=== PATIENT | female | born 1945 | race Caucasian/White ===

== ENCOUNTER 2018-09-01 21:04 | Inpatient (IN) | payer MEDICARE, MEDICAID ==
--- NOTE | 2018-09-01 21:13 | ED PDOC ---
Arrival/HPI - General Time Seen by Provider: 09/01/18 21:05 Historian: Patient, Family, EMS - History of Present Illness Narrative History of Present Illness (Text): 09/01/18 21:12 Joanne Iglesias is a 73 year old female, whose past medical history includes lung cancer (currently undergoing chemotherapy) and hypertension, who presents to the emergency department brought in by EMS accompanied by relative for respiratory distress. As per son, patient has been experiencing shortness of breath today, progressively worsening tonight. EMS was notified and patient was placed on BiPAP en route to the ED. Limited HPI and ROS secondary to patient's respiratory distress. Time/Duration: Prior to Arrival Symptom Onset: Gradual Symptom Course: Worsening Activities at Onset: Light Context: Home Past Medical History - Provider Review Nursing Documentation Reviewed: Yes Family/Social History - Physician Review Nursing Documentation Reviewed: Yes Family/Social History: Unknown Family HX Allergies/Home Meds Allergies/Adverse Reactions: Allergies No Known Allergies Allergy (Verified 09/01/18 21:14) Home Medications: Home Meds Medication Instructions Recorded Confirmed Acetaminophen/Oxycodone Hydr 1 tab PO Q4 PRN 09/01/18 09/01/18 [Percocet 10/325 mg Tab] Folic Acid 1 tab PO DAILY 09/01/18 09/01/18 Megestrol [Megace] 1 tab PO DAILY 09/01/18 09/01/18 Ondansetron HCl [Zofran] 1 tab PO TID PRN 09/01/18 09/01/18 RX: Gabapentin [Neurontin] 1 tab PO BID 09/01/18 09/01/18 Review of Systems - Review of Systems Systems not reviewed;Unavailable: Respiratory Distress Respiratory: SOB Physical Exam Vital Signs Reviewed: Yes Temperature: Afebrile Blood Pressure: Normal Pulse: Tachycardic Respiratory Rate: Tachypneic Appearance: Positive for: Non-Toxic Mental Status: Positive for: Alert and Oriented X 3 - Systems Exam Head: Present: Atraumatic, Normocephalic Pupils: Present: PERRL Extroacular Muscles: Present: EOMI Conjunctiva: Present: Normal Mouth: Present: Moist Mucous Membranes Neck: Present: Normal Range of Motion Respiratory/Chest: Present: Decreased Breath Sounds, Rhonchi (Rhonchi bilaterally), Tachypneic Cardiovascular: Present: Normal S1, S2, Tachycardic. No: Murmurs Abdomen: No: Tenderness, Distention, Peritoneal Signs Upper Extremity: Present: Normal Inspection. No: Cyanosis, Edema Lower Extremity: Present: Normal Inspection. No: Edema Neurological: Present: GCS=15, CN II-XII Intact Skin: Present: Warm, Dry, Normal Color. No: Rashes Psychiatric: Present: Alert, Oriented x 3 Medical Decision Making ED Course and Treatment: 09/01/18 21:12 Impression: 73 year old female brought in by EMS for respiratory distress. Plan: -- EKG -- CXR -- Labs, cardiac enzymes, BNP -- IV fluids -- Duoneb -- Solu-medrol -- Reassess and disposition Progress Notes: Reviewed EKG, sinus tachycardia at 141 bpm. LAD. Inferior infarct. Anteroseptal infarct. ST/T changes laterally. 09/01/18 22:07 CXR reviewed, shows increased pulmonary vascular markings, consistent with CHF. 09/01/18 22:22 Labs reviewed, WBC: 24.6, troponin:2.69, BNP:9330, lactate: 6.2. Code Sepsis called. Hepairin, Maxipime, Nitroglycerin, and Vancomycin ordered. 09/01/18 22:[address] Jennifer Childress, transformer coil winder, who is aware and agrees with plan. Pt will be admitted to the ICU for sepsis, pneumonia, COPD, NSTEMI, cor pulmonale under the hospitalist service. residential advisor notified. - Critical Care Critical Care Minutes: 45 minutes - Lab Interpretations I have reviewed the lab results: Yes - RAD Interpretation Manager Civil: ED Physician - EKG Interpretation Interpreted by ED Physician: Yes Type: 12 lead EKG - Scribe Statement The provider has reviewed the documentation as recorded by the Ryneiblaron Rios Provider Scribe Attestation: All medical record entries made by the Scribe were at my direction and personally dictated by me. I have reviewed the chart and agree that the record accurately reflects my personal performance of the history, physical exam, m edical decision making, and the department course for this patient. I have also personally directed, reviewed, and agree with the discharge instructions and disposition. Disposition/Present on Arrival - Present on Arrival Any Indicators Present on Arrival: No History of DVT/PE: No History of Uncontrolled Diabetes: No Urinary Catheter: No History of Decub. Ulcer: No History Surgical Site Infection Following: None - Disposition Have Diagnosis and Disposition been Completed?: Yes Diagnosis: COPD (chronic obstructive pulmonary disease), Sepsis, NSTEMI (non-ST elevated myocardial infarction), Pneumonia, Pulmonary cancer, CHF (congestive heart failure) Disposition: HOSPITALIZED Disposition Time: 22:25 Condition: GUARDED
[2018-09-01] MEDS ORDERED: Albuterol-Ipratrop 3 mg / 0.5 (3 ml) UD ONE (21:14)
[2018-09-01 21:20] LABS: HEMOGLOBIN 9.5 g/dL (12.0-16.0); MEAN CELL VOLUME 94.8 fl (80.0-105.0); MEAN CORPUSCULAR HEMOGLOBIN 29.2 pg (25.0-35.0); MEAN CORPUSCULAR HGB CONC 30.8 g/dl (31.0-37.0); MEAN PLATELET VOLUME 9.5 fl (7.0-11.0); RBC 3.25 10^6/uL (3.5-6.1); RED CELL DISTRIBUTION WIDTH 15.6 % (11.5-14.5); WHITE BLOOD COUNT 24.6 10^3/uL (4.5-11.0)
[2018-09-01] MEDS ORDERED: Albuterol-Ipratrop 3 mg / 0.5 (3 ml) UD IH STA ×2 (21:20→21:29)
[2018-09-01] MEDS ORDERED: Sodium Chloride 0.9% 500 ML IV STA (21:27)
[2018-09-01 21:31] LABS: INR 1.19; PARTIAL THROMBOPLASTIN TIME 31.1 Seconds (25.1-36.5); PROTHROMBIN TIME 13.6 SECONDS (9.4-12.5)
[2018-09-01 21:35] LABS: CALCIUM 9.9 mg/dL (8.4-10.5)
[2018-09-01] MEDS ORDERED: Morphine 2 mg/ml ISec IVP STA (21:37)
[2018-09-01] MEDS ORDERED: Morphine 2 mg/ml ISec ONE (21:40)
[2018-09-01 22:00] LABS: ARTERIAL BLOOD GAS HCO3 16.1 mmol/L (21-28); ARTERIAL BLOOD GAS HEMOGLOBIN 9.1 g/dL (11.7-17.4); ARTERIAL BLOOD GAS O2 CAPACITY 12.3 mL/dl (16-24); ARTERIAL BLOOD GAS O2 CONTENT 11.2 ML/dl (15-23); ARTERIAL BLOOD GAS O2 SAT 90.9 % (95-98); ARTERIAL BLOOD GAS PCO2 32 mm/Hg (35-45); ARTERIAL BLOOD GAS PH 7.31 (7.35-7.45); ARTERIAL BLOOD GAS TCO2 17.1 mmol.L (22-28)
[2018-09-01 22:08] LABS: TROPONIN I 2.69 ng/mL
[2018-09-01] MEDS ORDERED: Nitroglycerin 50mg in D5W 50 MG/250 ML BOTTLE IV PRN (22:09)
[2018-09-01] MEDS ORDERED: Azithromycin 500MG/NS 250ml 500 MG/250 ML BAG IV STA (22:10)
[2018-09-01] MEDS ORDERED: cefTRIAXone 1 gm 1 GM/100 ML BAG IV STA (22:10)
[2018-09-01 22:18] LABS: VENOUS BLOOD GAS BASE EXCESS -12.6 mmol/L (0.0-2.0); VENOUS BLOOD GAS PO2 66 mm/Hg (30-55); VENOUS BLOOD PH 7.15 (7.32-7.43)
[2018-09-01] MEDS ORDERED: Vancomycin 1gm in NS 250ml 1 GM/250 ML BAG IVPB STA (22:19)
[2018-09-01] MEDS ORDERED: Cefepime IV 2 gm in NS 2 GM/100 ML BAG IVPB STA (22:19)
[2018-09-01 22:29] VITALS: BMI 23.6
[2018-09-01] MEDS ORDERED: Heparin25000 units/250ml 1/2NS 25,000 UNITS/250 ML BAG IV SCH (22:30)
[2018-09-01] MEDS ORDERED: Heparin 25,000units in 1/2NS 250 ML BAG IV SCH (22:45)
[2018-09-01] MEDS ORDERED: Aspirin 325 mg EC Tablets PO STA (23:40)
--- NOTE | 2018-09-02 00:01 | CP.PCM.HP ---
History of Present Illness - History of Present Illness History of Present Illness: Misti Lima, PGY-1, Internal Medicine History and Physical for Dr. Childress 73 year old female with past medical history of unspecified lung cancer with unspecified chemotherapy that she has been receiving since being diagnosed in March 2018, hypertension, COPD, cardiac myxoma, and asthma presents with shortness of breath and chest pain. As per daughter, patient was complaining of chest pain starting at 13:00 on 09/01, but mentioned that the pain was light and pressure like. No exacerbating or remitting factors were present. Chest pain was constant and increased over time, which radiated to the left arm, left leg, and back. Patient admitted to diaphoresis recently but denied nausea and jaw pain. Patient took a nap at 16:30 and woke up at 18:00 with shortness of breath and wheezing. Patient's son called EMS, who started patient on BiPap en route to the hospital. Patient denied cough, sputum production, fever, abdominal pain, dysuria, hematuria, numbness/tingling. Patient has had an episode of this severe shortness of breath in the past and was [place] [facility]. Daughter was unsure of what the diagnosis and treatment were at the time. 12-point ROS was unremarkable except for what was mentioned above. Code status was explained in detail to family at bedside who stated that they want patient to be full code at this time. PMH: as stated above. PSH: chemotherapy port in March 2018 FMHx: denies SHx: 2 ppd for 50 years, stopped in March 2018; denies drinking or recreational drug use Allergies: NKDA PMD: Dr. Gomes Heme/Onc: Dr. Matson Pharmacy: [facility] Present on Admission - Present on Admission Any Indicators Present on Admission: No Review of Systems - Constitutional Constitutional: absent: Anorexia, Chills, Fever - EENT Eyes: absent: Blurred Vision Ears: absent: Decreased Hearing - Cardiovascular Cardiovascular: Chest Pain, Chest Pain at Rest, Diaphoresis, Dyspnea, Edema, Pain Radiating to Arm/Neck/Jaw (left arm), Leg Edema. absent: Lightheadedness - Respiratory Respiratory: Dyspnea, Wheezing. absent: Cough, Hemoptysis, Chest Congestion - Gastrointestinal Gastrointestinal: absent: Abdominal Pain, Constipation, Diarrhea, Nausea, Vomiting - Genitourinary Genitourinary: absent: Dysuria, Hematuria - Musculoskeletal Musculoskeletal: absent: Abnormal Gait, Atrophy, Back Pain - Neurological Neurological: absent: Confusion, Weakness Past Patient History - Infectious Disease Hx of Infectious Diseases: None - Past Social History Smoking Status: Former Smoker - CARDIAC Other/Comment: mass in heart - PULMONARY Hx Lung Cancer: Yes - PSYCHIATRIC Hx Substance Use: No - SURGICAL HISTORY Other/Comment: Port a cath right CW - ANESTHESIA Hx Anesthesia: Yes Meds Allergies/Adverse Reactions: Allergies Allergy/AdvReac Type Severity Reaction Status Date / Time No Known Allergies Allergy Verified 09/01/18 21:14 Physical Exam - Constitutional Appears: Well, Non-toxic, No Acute Distress - Head Exam Head Exam: ATRAUMATIC, NORMAL INSPECTION, NORMOCEPHALIC - Eye Exam Eye Exam: EOMI, PERRL - ENT Exam ENT Exam: Mucous Membranes Moist - Respiratory Exam Respiratory Exam: Rales, Wheezes - Cardiovascular Exam Cardiovascular Exam: Tachycardia, REGULAR RHYTHM - GI/Abdominal Exam GI & Abdominal Exam: Normal Bowel Sounds, Soft. absent: Tenderness - Extremities Exam Extremities exam: Positive for: full ROM - Neurological Exam Neurological exam: Alert, CN II-XII Intact, Oriented x3 - Skin Skin Exam: Dry, Intact, Pallor Results - Vital Signs Recent Vital Signs: Last Vital Signs Temp 98.2 F 09/01/18 21:23 Pulse 136 H 09/01/18 22:31 Resp 23 09/01/18 21:23 BP 102/79 09/01/18 21:23 Pulse Ox 92 L 09/01/18 21:23 - Labs Result Diagrams: 09/01/18 21:00 09/01/18 21:00 Labs: Laboratory Results - last 24 hr 09/01/18 09/01/18 09/01/18 21:00 21:00 21:00 WBC 24.6 H RBC 3.25 L Hgb 9.5 L Hct 30.8 L MCV 94.8 MCH 29.2 MCHC 30.8 L RDW 15.6 H Plt Count 457 H MPV 9.5 PT 13.6 H INR 1.19 APTT 31.1 pCO2 pO2 HCO3 ABG pH ABG Total CO2 ABG O2 Saturation ABG O2 Content ABG Base Excess ABG Hemoglobin ABG Carboxyhemoglobin POC ABG HHb (Measured) ABG Methemoglobin ABG O2 Capacity VBG pH VBG pCO2 VBG HCO3 VBG Total CO2 VBG O2 Sat (Calc) VBG Base Excess VBG Potassium Hgb O2 Saturation Glucose Lactate FiO2 Sodium 135 Potassium 4.9 Chloride 105 Carbon Dioxide 17 L Anion Gap 18 BUN 43 H Creatinine 1.6 H Est GFR ( Amer) 38 Est GFR (Non-Af Amer) 31 Random Glucose 267 H Calcium 9.9 Total Bilirubin 0.4 AST 46 H ALT 19 Alkaline Phosphatase 62 Lactate Dehydrogenase 590 Total Creatine Kinase 145 Troponin I 2.69 H* NT-Pro-B Natriuret Pep 9330 H Total Protein 7.8 Albumin 4.0 Globulin 3.8 Albumin/Globulin Ratio 1.0 L Venous Blood Potassium 09/01/18 09/01/18 21:50 22:15 WBC RBC Hgb Hct MCV MCH MCHC RDW Plt Count MPV PT INR APTT pCO2 32 L pO2 54.0 L 66 H HCO3 16.1 L ABG pH 7.31 L ABG Total CO2 17.1 L ABG O2 Saturation 90.9 L ABG O2 Content 11.2 L ABG Base Excess -9.2 L ABG Hemoglobin 9.1 L ABG Carboxyhemoglobin 3.1 H POC ABG HHb (Measured) 8.8 H ABG Methemoglobin 0.6 ABG O2 Capacity 12.3 L VBG pH 7.15 L* VBG pCO2 46.0 VBG HCO3 16.0 L VBG Total CO2 17.4 L VBG O2 Sat (Calc) 92.2 H VBG Base Excess -12.6 L VBG Potassium 5.0 Hgb O2 Saturation 87.5 L Glucose 274 H Lactate 6.2 H* FiO2 40.0 21.0 Sodium 135.0 Potassium Chloride 102.0 Carbon Dioxide Anion Gap BUN Creatinine Est GFR ( Amer) Est GFR (Non-Af Amer) Random Glucose Calcium Total Bilirubin AST ALT Alkaline Phosphatase Lactate Dehydrogenase Total Creatine Kinase Troponin I NT-Pro-B Natriuret Pep Total Protein Albumin Globulin Albumin/Globulin Ratio Venous Blood Potassium 5.0 Assessment & Plan - Assessment and Plan (Free Text) Assessment: 73 year old female with past medical history of unspecified lung cancer with unspecified chemotherapy that she has been receiving since being diagnosed in March 2018, hypertension, COPD, cardiac myxoma, and asthma presents with shortness of breath and chest pain. Plan: Shortness of Breath and Sepsis 2/2 to Obstructive Pneumonia vs. COPD exacerbation vs. Pulmonary Embolism -Chest X ray showed evidence of pulmonary congestion as read by me. Follow up official read. -Chest CT: follow up results -Continue BiPap with IPAP 12, EPAP 6, RR 12, O2% of 60% -ABG: pH: 7.31, pO2: 52, pCO2: 32, Lactate: 6.2. Follow up pH was 7.15 -Suspecting CAP vs. HCAP since patient is immunocompromised on chemotherapy. B lood culture and urine culture ordered. -Follow up repeat ABG and ABG in the AM -Trend lactate level. Lactate is 6.2 -Vancomycin and zosyn for suspected pneumonia. -Xopenex PRN for shortness of breath. Given over duonebs due to patient's tachycardia -Methylpredisone 125 given in ED. Patient started on solucortef Q8 for stress dose steroids -Patient is full code and prognosis is guarded. Code status was discussed with daughter and granddaughter at bedside extensively, but status should be reconfi rmed with son once son is available. -Dr. Matson consulted for recommendations. Follow recommendations. NSTEMI -EKG: sinus tachycardia with ST depressions in V5 and V6 with heart rate of 141 -Troponin: 2.69. Follow up repeat troponin Q8 -BNP: 9330 -Patient has reported history of cardiac myxoma -Last echo in 2014 showed EF of 51.4% with mild TR. Repeat echocardiogram orde red to evaluate for CHF -Morphine, Bipap, Nitroglycerin at 5 mcg/min, aspirin, plavix, metoprolol ta rtrate, atorvastatin, give loading dose of heparin and heparin drip at 12U/kg/hr -Consider ROMY inhibitor -Measure daily weight -Strict I and Os History of hypertension -Patient currently not hypertensive -Due to NSTEMI, patient started on metoprolol and is currently on nitroglycerin drip ISAEL -Patient currently has ISAEL at 1.6 from baseline of 1.0 -Likely due to dehydration -NS at 40cc/hr started. Lower dose started due to rales on examination from possible CHF exacerbation. She should not be fluid overloaded -Patient currently has nonaniongap metabolic acidosis with appropriate respiratory compensation. Continue to follow up CMP in the AM GI prophylaxis: protonix 40 mg daily DVT prophylaxis: heparin drip currently Patient plan discussed with Dr. Childress. - Date & Time Date: 09/02/18 Time: 00:08
[2018-09-02] MEDS ORDERED: Sodium Chloride 0.9% 1,000 ML IV STA (00:41)
[2018-09-02] MEDS: Metoprolol 1 mg/ml Inj IVP SCH ×2 (01:02→09:31)
[2018-09-02 01:18] LABS: ARTERIAL BLOOD GAS HCO3 16.6 mmol/L (21-28); ARTERIAL BLOOD GAS O2 SAT 92.9 % (95-98); ARTERIAL BLOOD GAS PCO2 37 mm/Hg (35-45); ARTERIAL BLOOD GAS PH 7.26 (7.35-7.45); ARTERIAL BLOOD GAS TCO2 17.7 mmol.L (22-28)
[2018-09-02] MEDS: Morphine 2 mg/ml ISec IVP PRN ×2 (01:44→17:42)
[2018-09-02] MEDS ORDERED: Etomidate 20 mg/10ml Inj IV ONE (02:16)
[2018-09-02] MEDS ORDERED: Propofol 10 mg/ml 1,000 MG/100 ML VIAL IV PRN (02:46)
[2018-09-02 03:18] LABS: ARTERIAL BLOOD GAS HCO3 14.9 mmol/L (21-28); ARTERIAL BLOOD GAS HEMOGLOBIN 9.8 g/dL (11.7-17.4); ARTERIAL BLOOD GAS O2 CAPACITY 13.6 mL/dl (16-24); ARTERIAL BLOOD GAS O2 SAT 95.9 % (95-98); ARTERIAL BLOOD GAS PCO2 47 mm/Hg (35-45); ARTERIAL BLOOD GAS TCO2 16.3 mmol.L (22-28)
[2018-09-02 03:20] LABS: ARTERIAL BLOOD GAS PH 7.11 (7.35-7.45)
--- NOTE | 2018-09-02 04:37 | PCM.PROC ---
Procedures Attestation:: I certify that I have explained the specified Operation(s) or Procedure(s), risks, benefits and reasonable alternatives to the Patient and/or other person responsible. The opportunity was given to ask questions and all questions answered - Central Line Placement Internal Jugular CVP Time Out Performed: Yes Pt. Placed on Pulse Ox Monitor: Yes Central Line Prep: Chlorhexidine-Alcohol Combination Ultrasound Used for Placement: Yes Central Line Lumen Inserted: triple Central Line Length: 20 cm Post Procedure: Sutured in Place, Good Blood Return, All Ports Aspirated, Flushed, Capped, Sterile Dressing Applied Secured by: Securement device Post procedure dressing: Chlorhexidine disc (Biopatch) Post Procedure X-Ray: Yes Patient Tolerated Procedure: Well Immediate Complications: None Additional Comments: Supervised and assisted by Dr. Rodríguez Portillo PGY3.
--- NOTE | 2018-09-02 04:39 | PCM.PROC ---
Procedures Attestation:: I certify that I have explained the specified Operation(s) or Procedure(s), risks, benefits and reasonable alternatives to the Patient and/or other person responsible. The opportunity was given to ask questions and all questions answered - Intubation Time Out Performed: Yes Sedative: Etomidate Laryngoscope: Estefany ET Tube Size: 7.5 ET Tube Secured at Depth: 15 ET Tube Placement Confirmation: Visualized Passing Through Cords, Confirmation w/Capnometry Patient Tolerated Procedure: Well Procedure Immediate Complications: None Additional comments: Supervised and assisted by Dr. Rodríguez Portillo PGY3
[2018-09-02] MEDS: Propofol 10 mg/ml 1,000 MG/100 ML VIAL IV PRN ×2 (05:22→13:04)
[2018-09-02 05:55] LABS: ARTERIAL BLOOD GAS HCO3 17.8 mmol/L (21-28); ARTERIAL BLOOD GAS HEMOGLOBIN 9.4 g/dL (11.7-17.4); ARTERIAL BLOOD GAS O2 CAPACITY 13.2 mL/dl (16-24); ARTERIAL BLOOD GAS O2 CONTENT 13.2 ML/dl (15-23); ARTERIAL BLOOD GAS O2 SAT 99.7 % (95-98); ARTERIAL BLOOD GAS PCO2 37 mm/Hg (35-45); ARTERIAL BLOOD GAS PH 7.29 (7.35-7.45); ARTERIAL BLOOD GAS TCO2 18.9 mmol.L (22-28)
[2018-09-02] MEDS ORDERED: Piperacillin/Tazobact 3.375 gm 100 ML IVPB SCH (06:00)
[2018-09-02 07:12] LABS: GRAN # 8.73 (1.4-6.5); GRAN % 87.8 % (50.0-68.0); HEMOGLOBIN 8.8 g/dL (12.0-16.0); LYMPH # 0.6 (1.2-3.4); LYMPH % 6.2 % (22.0-35.0); MEAN CELL VOLUME 94.1 fl (80.0-105.0); MEAN CORPUSCULAR HEMOGLOBIN 28.9 pg (25.0-35.0); MEAN CORPUSCULAR HGB CONC 30.7 g/dl (31.0-37.0); MEAN PLATELET VOLUME 9.6 fl (7.0-11.0); MONO # 0.6 (0.1-0.6); RBC 3.05 10^6/uL (3.5-6.1); RED CELL DISTRIBUTION WIDTH 15.6 % (11.5-14.5)
--- NOTE | 2018-09-02 07:26 | CP.PCM.PN ---
<McnealRenettakevin L - Last Filed: 09/02/18 17:28> Subjective - Date & Time of Evaluation Date of Evaluation: 09/02/18 Time of Evaluation: 07:26 - Subjective Subjective: Resident Progress Note for Hospitalist Service Patient examined at bedside. Patient is intubated and sedated on propofol drip, unable to provide history. Patient's condition was discussed with son who was at bedside. Objective - Vital Signs/Intake and Output Vital Signs (last 24 hours): Temp Pulse Resp BP Pulse Ox 98.2 F 102 H 20 91/56 L 100 09/01/18 21:23 09/02/18 06:00 09/02/18 04:02 09/02/18 04:00 09/02/18 04:00 Intake and Output: 09/02/18 09/02/18 06:59 18:59 Intake Total 544 Output Total 150 Balance 394 - Medications Medications: Current Medications Hydrocortisone Sodium Succinate (Solu-Cortef) 100 mg IVP Q8 FLIP Last Admin: 09/02/18 05:07 Dose: Not Given Nitroglycerin/Dextrose (Nitroglycerin 50 Mg/250 Ml D5w) 50 mg in 250 mls @ 1.5 mls/hr IV .Q24H PRN; Protocol PRN Reason: Titrate per protocol Last Admin: 09/01/18 22:31 Dose: mls/hr Heparin Sodium/Sodium Chloride (Heparin 74392 Units/250ml 1/2 Normal Saline) 25,000 units in 250 mls @ 6.603 mls/hr IV .Q24H FLIP; Protocol Last Admin: 09/01/18 23:22 Dose: 6.603 mls/hr Vancomycin HCl (Vancomycin 1gm) 1 gm in 250 mls @ 167 mls/hr IVPB DAILY FLIP; Protocol Piperacillin Sod/Tazobactam Sod (Zosyn 3.375 In Ns 100ml) 100 mls @ 25 mls/hr IVPB Q8 FLIP; Protocol Stop: 09/02/18 17:59 Last Admin: 09/02/18 05:22 Dose: 25 mls/hr Sodium Chloride (Sodium Chloride 0.9%) 1,000 mls @ 40 mls/hr IV .Q24H STA Stop: 09/03/18 00:40 Last Admin: 09/02/18 01:03 Dose: 40 mls/hr Propofol (Diprivan) 1,000 mg in 100 mls @ 1.445 mls/hr IV .Q24H PRN; Protocol PRN Reason: TITRATE PER MD ORDER Last Titration: 09/02/18 05:24 Dose: 35 mcg/kg/min, 10.116 mls/hr Levalbuterol HCl (Xopenex) 0.63 mg IH [id number] PRN PRN Reason: Shortness of Breath Metoprolol Tartrate (Lopressor) 5 mg IVP DAILY [facility] Last Admin: 09/02/18 01:02 Dose: 5 mg Morphine Sulfate (Morphine) 2 mg IVP Q4H PRN PRN Reason: Pain, severe (8-10) Last Admin: 09/02/18 01:44 Dose: 2 mg Ondansetron HCl (Zofran Inj) 4 mg IVP Q6 PRN PRN Reason: Nausea/Vomiting Pantoprazole Sodium (Protonix Inj) 40 mg IVP DAILY [facility] - Labs Labs: 09/02/18 06:40 09/01/18 21:00 PT 13.6 SECONDS (9.4-12.5) H 09/01/18 21:00 INR 1.19 09/01/18 21:00 APTT 46.8 Seconds (25.1-36.5) H 09/02/18 06:40 - Constitutional Appears: Non-toxic, No Acute Distress - Head Exam Head Exam: ATRAUMATIC, NORMOCEPHALIC - Eye Exam Eye Exam: Normal appearance, PERRL - ENT Exam ENT Exam: Mucous Membranes Moist Additional comments: ett in place - Respiratory Exam Respiratory Exam: Rales, NORMAL BREATHING PATTERN. absent: Accessory Muscle Use, Respiratory Distress - Cardiovascular Exam Cardiovascular Exam: Tachycardia, +S1, +S2. absent: Murmur - GI/Abdominal Exam GI & Abdominal Exam: Soft, Normal Bowel Sounds. absent: Distended, Firm, Rigid - Extremities Exam Extremities Exam: Normal Capillary Refill, Pedal Edema Additional comments: +2 pitting edema - Skin Skin Exam: Dry, Intact, Normal Color Assessment and Plan - Assessment and Plan (Free Text) Assessment: 73 year old female with past medical history of unspecified lung cancer with unspecified chemotherapy that she has been receiving since being diagnosed in March 2018, hypertension, COPD, cardiac myxoma, and asthma presents with shortness of breath and chest pain. Plan: Respiratory failure - s/p intubation - COPD exacerbation vs. PE vs. CHF exacerbation - Chest X ray shows severe vascular congestion - BNP 9330 - Echo in 2015 showed EF of 51.4% with mild TR, followup repeat ECHO - Chest CT unable to be done as patient is unstable - Xopenex PRN - Heme/onc consulted. Recs appreciated. Septic shock - on vasopressin, levophed, dobutamine drip - Solu-cortef 50 mg IV Q6 - lactate trending down - Doxycycline and Merrem after loading vancomycin dose - followup cultures - ID consulted. Appreciate recs. NSTEMI - EKG: sinus tachycardia with ST depressions in V5 and V6 with heart rate of 141 - troponins 114 - heparin drip - nitroglycerin drip, metoprolol, acei held due to septic shock - Cardiology consulted. Recommend conservative management. ARF - likely pre-renal due to septic shock GI prophylaxis: protonix 40 mg IV daily DVT prophylaxis: heparin drip Case discussed with Dr. Derik Mcneal PGY-1 <Bear More - Last Filed: 09/02/18 17:38> Objective - Vital Signs/Intake and Output Vital Signs (last 24 hours): Temp Pulse Resp BP Pulse Ox 97.4 F L 107 H 20 114/57 L 100 09/02/18 00:20 09/02/18 16:45 09/02/18 04:02 09/02/18 16:45 09/02/18 16:45 Intake and Output: 09/02/18 09/02/18 06:59 18:59 Intake Total 563 81 Output Total 150 Balance 413 81 - Medications Medications: Current Medications Hydrocortisone Sodium Succinate (Solu-Cortef) 50 mg IVP Q6 [facility] Last Admin: 09/02/18 15:06 Dose: 50 mg Nitroglycerin/Dextrose (Nitroglycerin 50 Mg/250 Ml D5w) 50 mg in 250 mls @ 1.5 mls/hr IV .Q24H PRN; Protocol PRN Reason: Titrate per protocol Last Admin: 09/01/18 22:31 Dose: mls/hr Propofol (Diprivan) 1,000 mg in 100 mls @ 1.445 mls/hr IV .Q24H PRN; Protocol PRN Reason: TITRATE PER MD ORDER Last Admin: 09/02/18 13:04 Dose: 20 mcg/kg/min, 5.781 mls/hr Heparin Sodium/Sodium Chloride (Heparin 94457 Units/250ml 1/2 Normal Saline) 25,000 units in 250 mls @ 5.77 mls/hr IV .Q24H FLIP; Protocol Last Titration: 09/02/18 15:33 Dose: 16 units/kg/hr, 7.693 mls/hr NOREPINEPHRINE BIT/0.9 % NACL (Levophed 4 Mg/ 250 Ml Ns Premixed) 4 mg in 250 mls @ 15 mls/hr IV .[id number] PRN; Protocol PRN Reason: TITRATE PER MD ORDER Last Admin: 09/02/18 09:53 Dose: 4 mcg/min, 15 mls/hr Vasopressin 20 units/ Sodium (Chloride) 101 mls @ 9.09 mls/hr IV .Q11H7M [facility]; Protocol Last Admin: 09/02/18 10:07 Dose: 9.09 mls/hr Doxycycline Hyclate 100 mg/ (Sodium Chloride) 100 mls @ 100 mls/hr IVPB Q12 S ; Protocol Last Admin: 09/02/18 11:28 Dose: 100 mls/hr Dobutamine HCl/Dextrose (Dobutamine/Dextrose 5% 500mg/250ml) 500 mg in 250 mls @ 3.606 mls/hr IV .Q24H PRN; Protocol PRN Reason: TITRATE PER PROTOCOL Last Admin: 09/02/18 15:52 Dose: 2.5 mcg/kg/min, 3.606 mls/hr Meropenem/Sodium Chloride (Merrem Iv 500 Mg/Ns 50 Ml) 500 mg in 50 mls @ 100 mls/hr IVPB Q12 FLIP; Protocol Stop: 09/03/18 10:29 Levalbuterol HCl (Xopenex) 0.63 mg IH [id number] PRN PRN Reason: Shortness of Breath Morphine Sulfate (Morphine) 2 mg IVP Q4H PRN PRN Reason: Pain, severe (8-10) Last Admin: 09/02/18 01:44 Dose: 2 mg Ondansetron HCl (Zofran Inj) 4 mg IVP Q6 PRN PRN Reason: Nausea/Vomiting Oseltamivir Phosphate (Tamiflu Cap) 30 mg PO BID [facility]; Protocol Last Admin: 09/02/18 15:08 Dose: 30 mg Pantoprazole Sodium (Protonix Inj) 40 mg IVP DAILY [facility] Last Admin: 09/02/18 09:29 Dose: 40 mg - Labs Labs: 09/02/18 06:40 09/02/18 16:32 PT 13.6 SECONDS (9.4-12.5) H 09/01/18 21:00 INR 1.19 09/01/18 21:00 APTT 36.9 Seconds (25.1-36.5) H 09/02/18 14:10 Attending/Attestation - Attestation I have personally seen and examined this patient.: Yes I have fully participated in the care of the patient.: Yes I have reviewed all pertinent clinical information, including history, physical exam and plan: Yes
[2018-09-02 07:34] LABS: ALBUMIN 3.5 g/dL (3.0-4.8); CALCIUM 9.2 mg/dL (8.4-10.5)
[2018-09-02] MEDS: Heparin25000 units/250ml 1/2NS 25,000 UNITS/250 ML BAG IV SCH (08:00)
[2018-09-02 08:09] LABS: ARTERIAL BLOOD GAS HCO3 17.3 mmol/L (21-28); ARTERIAL BLOOD GAS HEMOGLOBIN 8.7 g/dL (11.7-17.4); ARTERIAL BLOOD GAS O2 CAPACITY 12.5 mL/dl (16-24); ARTERIAL BLOOD GAS O2 CONTENT 12.5 ML/dl (15-23); ARTERIAL BLOOD GAS O2 SAT 100.2 % (95-98); ARTERIAL BLOOD GAS PCO2 32 mm/Hg (35-45); ARTERIAL BLOOD GAS PH 7.34 (7.35-7.45); ARTERIAL BLOOD GAS TCO2 18.3 mmol.L (22-28)
--- NOTE | 2018-09-02 08:21 | CP.PCM.CON ---
<BretWilver - Last Filed: 09/02/18 09:45> History of Present Illness - History of Present Illness History of Present Illness: Wilver Queen Internal Medicine Resident- Consult Note on Behalf of Critical Care Team Subjective: Patient is a 73 year old female with a past medical history of lung cancer, hypertension, COPD, cardiac myxoma, and asthma who was admitted for evaluation and treatment of shortness of breath and chest pain. Patient was found to be experiencing an NSTEMI, CHF exacerbation, and ISAEL. Patient developed hypoxemic respiratory failure and was intubated for airway protection/improved oxygenation. Patient was transferred to the ICU for further management. Patient seen and examined at bedside. Further subjective data cannot be ascertained at this time. 12 point ROS cannot except as indicated in the HPI Past medical history: unspecified lung cancer with unspecified chemotherapy that she has been receiving since being diagnosed in March 2018, hypertension, COPD, cardiac myxoma, and asthma Past surgical history: chemotherapy port in March 2018 Family History: denies Social History: as per records, 2 ppd for 50 years, stopped in March 2018; denies drinking or recreational drug use Allergies: NKDA PMD: Dr. Gomes Heme/Onc: Dr. Matson Pharmacy: [facility] Physical Examination: - Constitutional Appears: no acute distress - Head Exam Head Exam: ATRAUMATIC, NORMAL INSPECTION, NORMOCEPHALIC - Eye Exam Eye Exam: PERRL - ENT Exam ENT Exam: Mucous Membranes Moist - Respiratory Exam Respiratory Exam: Rales, Wheezes - Cardiovascular Exam Cardiovascular Exam: Tachycardia, REGULAR RHYTHM - GI/Abdominal Exam GI & Abdominal Exam: Normal Bowel Sounds, Soft. absent: Tenderness - Extremities Exam Extremities exam: Positive for: full ROM - Neurological Exam Neurological exam: sedated - Skin Skin Exam: Dry, Intact Assessment and Plan: Patient is a 73 year old female with past medical history of lung cancer, hypertension, COPD, cardiac myxoma, and asthma who was admitted for evaluation and treatment of shortness of breath and chest pain. Developed hypoxemic respiratory failure. Intubated for airway protection. Patient was transferred to the ICU for further management. Neurology - sedated on propofol - sedation vacation daily Pulm: Hypoxemic Respiratory Failure - 2/2 to Obstructive Pneumonia vs. COPD exacerbation vs. Pulmonary Embolism - 09/01/2018 Chest X ray vascular and interstitial congestion - 09/02/2018- Chest CT without contrast cancelled as patient is too unstable at this time - continue vent setting PRVC TV: 350, RR: 15, O2: 80%, PEEP: 10- decrease FiO2 to 60% - change hydrocortisone to 50mg q6 - xopenex PRN for shortness of breath - weaning and sedation trial daily - head of bed 30 degrees - continue low to intermediate tidal volumes, protective oral hygiene, conservative fluid management Cardiology NSTEMI, CHF Exacerbation - EKG on admission: sinus tachycardia HR [address] depressions in V5 and V6 - Troponin: 2.69 to 92 - Echo in 2014 showed EF of 51.4% with mild TR - Repeat echocardiogram ordered to evaluate for CHF - will restart aspirin, plavix s/p heparin drip - continue heparin drip as per protocol - continue metoprolol tartrate with holding parameters - continue atorvastatin - recommend starting ROMY inhibitor with holding parameters - Measure daily weight - Strict I and Os - cardiology consulted (Dr. Hammonds)- appreciate recommendations History of hypertension -Patient currently not hypertensive -Due to NSTEMI, patient started on metoprolol and is currently on nitroglycerin drip Renal ISAEL - likely pre-renal secondary to sepsis - continue IVF NUS at 40cc/hr started. - monitor closely via CMP Hyperkalemia - 5.5 today - kayexylate 30mg x 1 GI GI prophylaxis - protonix 40 mg daily Infectious Disease Severe Sepsis vs. Septic Shock, Pneumonia - HCAP vs CAP - blood culture and urine culture ordered and pending - continue vancomycin and zosyn - start patient on doxycyline and tamiflu - flu ordered and pending - infectious disease consulted (Dr. Jones)- appreciate recommendations Heme/Onc Stage IV Lung Cancer - patient is s/p chemotherapy - heme/onc consulted (Dr. Matson)- appreciate recommendations Anemia - downtrending 9.5 to 8.8 - normocytic - monitor closely via AM CBC DVT prophylaxis - heparin drip Patient seen, case discussed with, and plan approved by attending physician Dr. Robles. Past Patient History - Infectious Disease Hx of Infectious Diseases: None - Past Social History Smoking Status: Former Smoker - CARDIAC Hx Cardiac Disorders: Yes Hx Hypertension: Yes Other/Comment: mass in heart - PULMONARY Hx Respiratory Disorders: Yes Hx Asthma: Yes Other/Comment: lung ca - NEUROLOGICAL Hx Neurological Disorder: No - HEENT Hx HEENT Problems: No - RENAL Hx Chronic Kidney Disease: No - ENDOCRINE/METABOLIC Hx Endocrine Disorders: No - HEMATOLOGICAL/ONCOLOGICAL Hx Blood Disorders: No - INTEGUMENTARY Hx Dermatological Problems: No - MUSCULOSKELETAL/RHEUMATOLOGICAL Hx Musculoskeletal Disorders: Yes Hx Falls: Yes - GASTROINTESTINAL Hx Gastrointestinal Disorders: No - GENITOURINARY/GYNECOLOGICAL Hx Genitourinary Disorders: No - PSYCHIATRIC Hx Psychophysiologic Disorder: No - SURGICAL HISTORY Hx Surgeries: Yes Other/Comment: Port a cath right CW - ANESTHESIA Hx Anesthesia: Yes Meds Allergies/Adverse Reactions: Allergies Allergy/AdvReac Type Severity Reaction Status Date / Time No Known Allergies Allergy Verified 09/01/18 21:14 - Medications Medications: Current Medications Hydrocortisone Sodium Succinate (Solu-Cortef) 100 mg IVP Q8 FLIP Last Admin: 09/02/18 05:07 Dose: Not Given Nitroglycerin/Dextrose (Nitroglycerin 50 Mg/250 Ml D5w) 50 mg in 250 mls @ 1.5 mls/hr IV .Q24H PRN; Protocol PRN Reason: Titrate per protocol Last Admin: 09/01/18 22:31 Dose: mls/hr Heparin Sodium/Sodium Chloride (Heparin 14316 Units/250ml 1/2 Normal Saline) 2 5,000 units in 250 mls @ 6.603 mls/hr IV .Q24H FLIP; Protocol Last Admin: 09/01/18 23:22 Dose: 6.603 mls/hr Vancomycin HCl (Vancomycin 1gm) 1 gm in 250 mls @ 167 mls/hr IVPB DAILY [facility]; Protocol Piperacillin Sod/Tazobactam Sod (Zosyn 3.375 In Ns 100ml) 100 mls @ 25 mls/hr IVPB Q8 FLIP; Protocol Stop: 09/02/18 17:59 Last Admin: 09/02/18 05:22 Dose: 25 mls/hr Sodium Chloride (Sodium Chloride 0.9%) 1,000 mls @ 40 mls/hr IV .Q24H STA Stop: 09/03/18 00:40 Last Admin: 09/02/18 01:03 Dose: 40 mls/hr Propofol (Diprivan) 1,000 mg in 100 mls @ 1.445 mls/hr IV .Q24H PRN; Protocol PRN Reason: TITRATE PER MD ORDER Last Titration: 09/02/18 05:24 Dose: 35 mcg/kg/min, 10.116 mls/hr Levalbuterol HCl (Xopenex) 0.63 mg IH [id number] PRN PRN Reason: Shortness of Breath Metoprolol Tartrate (Lopressor) 5 mg IVP DAILY [facility] Last Admin: 09/02/18 01:02 Dose: 5 mg Morphine Sulfate (Morphine) 2 mg IVP Q4H PRN PRN Reason: Pain, severe (8-10) Last Admin: 09/02/18 01:44 Dose: 2 mg Ondansetron HCl (Zofran Inj) 4 mg IVP Q6 PRN PRN Reason: Nausea/Vomiting Pantoprazole Sodium (Protonix Inj) 40 mg IVP DAILY [facility] Results - Vital Signs Recent Vital Signs: Last Vital Signs Temp 98.2 F 09/01/18 21:23 Pulse 102 H 09/02/18 06:00 Resp 20 09/02/18 04:02 BP 91/56 L 09/02/18 04:00 Pulse Ox 100 09/02/18 04:00 - Labs Result Diagrams: 09/02/18 06:40 09/02/18 06:40 Labs: Laboratory Results - last 24 hr 09/01/18 09/01/18 09/01/18 21:00 21:00 21:00 WBC 24.6 H RBC 3.25 L Hgb 9.5 L Hct 30.8 L MCV 94.8 MCH 29.2 MCHC 30.8 L RDW 15.6 H Plt Count 457 H MPV 9.5 Gran % Lymph % (Auto) [place] % (Auto) Eos % (Auto) Baso % (Auto) Gran # Lymph # (Auto) [place] # (Auto) Eos # (Auto) Baso # (Auto) PT 13.6 H INR 1.19 APTT 31.1 pCO2 pO2 HCO3 ABG pH ABG Total CO2 ABG O2 Saturation ABG O2 Content ABG Base Excess ABG Hemoglobin ABG Carboxyhemoglobin POC ABG HHb (Measured) ABG Methemoglobin ABG O2 Capacity ABG Potassium VBG pH VBG pCO2 VBG HCO3 VBG Total CO2 VBG O2 Sat (Calc) VBG Base Excess VBG Potassium Hgb O2 Saturation Glucose Lactate FiO2 Inspiratory BiPAP Sodium 135 Potassium 4.9 Chloride 105 Carbon Dioxide 17 L Anion Gap 18 BUN 43 H Creatinine 1.6 H Est GFR ( Amer) 38 Est GFR (Non-Af Amer) 31 Random Glucose 267 H Calcium 9.9 Total Bilirubin 0.4 AST 46 H ALT 19 Alkaline Phosphatase 62 Lactate Dehydrogenase 590 Total Creatine Kinase 145 Troponin I 2.69 H* NT-Pro-B Natriuret Pep 9330 H Total Protein 7.8 Albumin 4.0 Globulin 3.8 Albumin/Globulin Ratio 1.0 L Arterial Blood Potassium Venous Blood Potassium Vancomycin Trough 09/01/18 09/01/18 09/01/18 21:00 21:50 22:15 WBC RBC Hgb Hct MCV MCH MCHC RDW Plt Count MPV Gran % Lymph % (Auto) [place] % (Auto) Eos % (Auto) Baso % (Auto) Gran # Lymph # (Auto) [place] # (Auto) Eos # (Auto) Baso # (Auto) PT INR APTT pCO2 32 L pO2 54.0 L 66 H HCO3 16.1 L ABG pH 7.31 L ABG Total CO2 17.1 L ABG O2 Saturation 90.9 L ABG O2 Content 11.2 L ABG Base Excess -9.2 L ABG Hemoglobin 9.1 L ABG Carboxyhemoglobin 3.1 H POC ABG HHb (Measured) 8.8 H ABG Methemoglobin 0.6 ABG O2 Capacity 12.3 L ABG Potassium VBG pH 7.15 L* VBG pCO2 46.0 VBG HCO3 16.0 L VBG Total CO2 17.4 L VBG O2 Sat (Calc) 92.2 H VBG Base Excess -12.6 L VBG Potassium 5.0 Hgb O2 Saturation 87.5 L Glucose 274 H Lactate 6.2 H* FiO2 40.0 21.0 Inspiratory BiPAP Sodium 135.0 Potassium Chloride 102.0 Carbon Dioxide Anion Gap BUN Creatinine Est GFR ( Amer) Est GFR (Non-Af Amer) Random Glucose Calcium Total Bilirubin AST ALT Alkaline Phosphatase Lactate Dehydrogenase Total Creatine Kinase Troponin I NT-Pro-B Natriuret Pep Total Protein Albumin Globulin Albumin/Globulin Ratio Arterial Blood Potassium Venous Blood Potassium 5.0 Vancomycin Trough < 5.0 L 09/02/18 09/02/18 09/02/18 01:08 03:10 05:48 WBC RBC Hgb Hct MCV MCH MCHC RDW Plt Count MPV Gran % Lymph % (Auto) [place] % (Auto) Eos % (Auto) Baso % (Auto) Gran # Lymph # (Auto) [place] # (Auto) Eos # (Auto) Baso # (Auto) PT INR APTT pCO2 37 47 H 37 pO2 63.0 L 81.0 168.0 H HCO3 16.6 L 14.9 L 17.8 L ABG pH 7.26 L 7.11 L* 7.29 L ABG Total CO2 17.7 L 16.3 L 18.9 L ABG O2 Saturation 92.9 L 95.9 99.7 H ABG O2 Content 13.0 L 13.2 L ABG Base Excess -9.7 L -14.0 L -8.1 L ABG Hemoglobin 9.8 L 9.4 L ABG Carboxyhemoglobin 2.2 H 1.7 H POC ABG HHb (Measured) 4.0 0.3 ABG Methemoglobin 0.6 1.2 ABG O2 Capacity 13.6 L 13.2 L ABG Potassium 4.8 VBG pH VBG pCO2 VBG HCO3 VBG Total CO2 VBG O2 Sat (Calc) VBG Base Excess VBG Potassium Hgb O2 Saturation 93.2 L 96.9 Glucose 194 H Lactate 2.8 H FiO2 60.0 100.0 100.0 Inspiratory BiPAP 12 Sodium 136.0 Potassium Chloride 107.0 Carbon Dioxide Anion Gap BUN Creatinine Est GFR ( Amer) Est GFR (Non-Af Amer) Random Glucose Calcium Total Bilirubin AST ALT Alkaline Phosphatase Lactate Dehydrogenase Total Creatine Kinase Troponin I NT-Pro-B Natriuret Pep Total Protein Albumin Globulin Albumin/Globulin Ratio Arterial Blood Potassium 4.8 Venous Blood Potassium Vancomycin Trough 09/02/18 09/02/18 06:40 06:40 WBC 10.0 D RBC 3.05 L Hgb 8.8 L Hct 28.7 L MCV 94.1 MCH 28.9 MCHC 30.7 L RDW 15.6 H Plt Count 325 MPV 9.6 Gran % 87.8 H Lymph % (Auto) 6.2 L [place] % (Auto) 6.0 Eos % (Auto) 0.0 L Baso % (Auto) 0.0 Gran # 8.73 H Lymph # (Auto) 0.6 L [place] # (Auto) 0.6 Eos # (Auto) 0.0 Baso # (Auto) 0.00 PT INR APTT 46.8 H pCO2 pO2 HCO3 ABG pH ABG Total CO2 ABG O2 Saturation ABG O2 Content ABG Base Excess ABG Hemoglobin ABG Carboxyhemoglobin POC ABG HHb (Measured) ABG Methemoglobin ABG O2 Capacity ABG Potassium VBG pH VBG pCO2 VBG HCO3 VBG Total CO2 VBG O2 Sat (Calc) VBG Base Excess VBG Potassium Hgb O2 Saturation Glucose Lactate FiO2 Inspiratory BiPAP Sodium Potassium Chloride Carbon Dioxide Anion Gap BUN Creatinine Est GFR ( Amer) Est GFR (Non-Af Amer) Random Glucose Calcium Total Bilirubin AST ALT Alkaline Phosphatase Lactate Dehydrogenase Total Creatine Kinase Troponin I NT-Pro-B Natriuret Pep Total Protein Albumin Globulin Albumin/Globulin Ratio Arterial Blood Potassium Venous Blood Potassium Vancomycin Trough <Estuardo Robles - Last Filed: 09/02/18 11:56> Meds - Medications Medications: Current Medications Hydrocortisone Sodium Succinate (Solu-Cortef) 50 mg IVP Q6 FLIP Nitroglycerin/Dextrose (Nitroglycerin 50 Mg/250 Ml D5w) 50 mg in 250 mls @ 1.5 mls/hr IV .Q24H PRN; Protocol PRN Reason: Titrate per protocol Last Admin: 09/01/18 22:31 Dose: mls/hr Vancomycin HCl (Vancomycin 1gm) 1 gm in 250 mls @ 167 mls/hr IVPB DAILY [facility]; Protocol Last Admin: 09/02/18 09:28 Dose: 167 mls/hr Propofol (Diprivan) 1,000 mg in 100 mls @ 1.445 mls/hr IV .Q24H PRN; Protocol PRN Reason: TITRATE PER MD ORDER Last Titration: 09/02/18 07:00 Dose: 20 mcg/kg/min, 5.781 mls/hr Heparin Sodium/Sodium Chloride (Heparin 74542 Units/250ml 1/2 Normal Saline) 25,000 units in 250 mls @ 5.77 mls/hr IV .Q24H FLIP; Protocol Last Admin: 09/02/18 08:00 Dose: 14 units/kg/hr, 6.731 mls/hr NOREPINEPHRINE BIT/0.9 % NACL (Levophed 4 Mg/ 250 Ml Ns Premixed) 4 mg in 250 mls @ 15 mls/hr IV .[id number] PRN; Protocol PRN Reason: TITRATE PER MD ORDER Last Admin: 09/02/18 09:53 Dose: 4 mcg/min, 15 mls/hr Vasopressin 20 units/ Sodium (Chloride) 101 mls @ 9.09 mls/hr IV .[id number] [facility]; Protocol Last Admin: 09/02/18 10:07 Dose: 9.09 mls/hr Doxycycline Hyclate 100 mg/ (Sodium Chloride) 100 mls @ 100 mls/hr IVPB Q12 FLIP; Protocol Last Admin: 09/02/18 11:28 Dose: 100 mls/hr Meropenem/Sodium Chloride (Merrem Iv 500 Mg/Ns 50 Ml) 500 mg in 50 mls @ 100 mls/hr IVPB Q12 FLIP; Protocol Stop: 09/02/18 12:14 Levalbuterol HCl (Xopenex) 0.63 mg IH [id number] PRN PRN Reason: Shortness of Breath Morphine Sulfate (Morphine) 2 mg IVP Q4H PRN PRN Reason: Pain, severe (8-10) Last Admin: 09/02/18 01:44 Dose: 2 mg Ondansetron HCl (Zofran Inj) 4 mg IVP Q6 PRN PRN Reason: Nausea/Vomiting Oseltamivir Phosphate (Tamiflu Cap) 30 mg PO BID [facility]; Protocol Pantoprazole Sodium (Protonix Inj) 40 mg IVP DAILY [facility] Last Admin: 09/02/18 09:29 Dose: 40 mg Results - Vital Signs Recent Vital Signs: Last Vital Signs Temp 97.4 F L 09/02/18 00:20 Pulse 91 H 09/02/18 08:42 Resp 20 09/02/18 04:02 BP 99/63 L 09/02/18 10:07 Pulse Ox 100 09/02/18 08:42 - Labs Result Diagrams: 09/02/18 06:40 09/02/18 06:40 Labs: Laboratory Results - last 24 hr 09/01/18 09/01/18 09/01/18 21:00 21:00 21:00 WBC 24.6 H RBC 3.25 L Hgb 9.5 L Hct 30.8 L MCV 94.8 MCH 29.2 MCHC 30.8 L RDW 15.6 H Plt Count 457 H MPV 9.5 Gran % Lymph % (Auto) [place] % (Auto) Eos % (Auto) Baso % (Auto) Gran # Lymph # (Auto) [place] # (Auto) Eos # (Auto) Baso # (Auto) PT 13.6 H INR 1.19 APTT 31.1 pCO2 pO2 HCO3 ABG pH ABG Total CO2 ABG O2 Saturation ABG O2 Content ABG Base Excess ABG Hemoglobin ABG Carboxyhemoglobin POC ABG HHb (Measured) ABG Methemoglobin ABG O2 Capacity ABG Potassium VBG pH VBG pCO2 VBG HCO3 VBG Total CO2 VBG O2 Sat (Calc) VBG Base Excess VBG Potassium Hgb O2 Saturation Glucose Lactate FiO2 Inspiratory BiPAP Sodium 135 Potassium 4.9 Chloride 105 Carbon Dioxide 17 L Anion Gap 18 BUN 43 H Creatinine 1.6 H Est GFR ( Amer) 38 Est GFR (Non-Af Amer) 31 Random Glucose 267 H Calcium 9.9 Phosphorus Magnesium Total Bilirubin 0.4 AST 46 H ALT 19 Alkaline Phosphatase 62 Lactate Dehydrogenase 590 Total Creatine Kinase 145 Troponin I 2.69 H* NT-Pro-B Natriuret Pep 9330 H Total Protein 7.8 Albumin 4.0 Globulin 3.8 Albumin/Globulin Ratio 1.0 L Arterial Blood Potassium Venous Blood Potassium Vancomycin Trough 09/01/18 09/01/18 09/01/18 21:00 21:50 22:15 WBC RBC Hgb Hct MCV MCH MCHC RDW Plt Count MPV Gran % Lymph % (Auto) [place] % (Auto) Eos % (Auto) Baso % (Auto) Gran # Lymph # (Auto) [place] # (Auto) Eos # (Auto) Baso # (Auto) PT INR APTT pCO2 32 L pO2 54.0 L 66 H HCO3 16.1 L ABG pH 7.31 L ABG Total CO2 17.1 L ABG O2 Saturation 90.9 L ABG O2 Content 11.2 L ABG Base Excess -9.2 L ABG Hemoglobin 9.1 L ABG Carboxyhemoglobin 3.1 H POC ABG HHb (Measured) 8.8 H ABG Methemoglobin 0.6 ABG O2 Capacity 12.3 L ABG Potassium VBG pH 7.15 L* VBG pCO2 46.0 VBG HCO3 16.0 L VBG Total CO2 17.4 L VBG O2 Sat (Calc) 92.2 H VBG Base Excess -12.6 L VBG Potassium 5.0 Hgb O2 Saturation 87.5 L Glucose 274 H Lactate 6.2 H* FiO2 40.0 21.0 Inspiratory BiPAP Sodium 135.0 Potassium Chloride 102.0 Carbon Dioxide Anion Gap BUN Creatinine Est GFR ( Amer) Est GFR (Non-Af Amer) Random Glucose Calcium Phosphorus Magnesium Total Bilirubin AST ALT Alkaline Phosphatase Lactate Dehydrogenase Total Creatine Kinase Troponin I NT-Pro-B Natriuret Pep Total Protein Albumin Globulin Albumin/Globulin Ratio Arterial Blood Potassium Venous Blood Potassium 5.0 Vancomycin Trough < 5.0 L 09/02/18 09/02/18 09/02/18 01:08 03:10 05:48 WBC RBC Hgb Hct MCV MCH MCHC RDW Plt Count MPV Gran % Lymph % (Auto) [place] % (Auto) Eos % (Auto) Baso % (Auto) Gran # Lymph # (Auto) [place] # (Auto) Eos # (Auto) Baso # (Auto) PT INR APTT pCO2 37 47 H 37 pO2 63.0 L 81.0 168.0 H HCO3 16.6 L 14.9 L 17.8 L ABG pH 7.26 L 7.11 L* 7.29 L ABG Total CO2 17.7 L 16.3 L 18.9 L ABG O2 Saturation 92.9 L 95.9 99.7 H ABG O2 Content 13.0 L 13.2 L ABG Base Excess -9.7 L -14.0 L -8.1 L ABG Hemoglobin 9.8 L 9.4 L ABG Carboxyhemoglobin 2.2 H 1.7 H POC ABG HHb (Measured) 4.0 0.3 ABG Methemoglobin 0.6 1.2 ABG O2 Capacity 13.6 L 13.2 L ABG Potassium 4.8 VBG pH VBG pCO2 VBG HCO3 VBG Total CO2 VBG O2 Sat (Calc) VBG Base Excess VBG Potassium Hgb O2 Saturation 93.2 L 96.9 Glucose 194 H Lactate 2.8 H FiO2 60.0 100.0 100.0 Inspiratory BiPAP 12 Sodium 136.0 Potassium Chloride 107.0 Carbon Dioxide Anion Gap BUN Creatinine Est GFR ( Amer) Est GFR (Non-Af Amer) Random Glucose Calcium Phosphorus Magnesium Total Bilirubin AST ALT Alkaline Phosphatase Lactate Dehydrogenase Total Creatine Kinase Troponin I NT-Pro-B Natriuret Pep Total Protein Albumin Globulin Albumin/Globulin Ratio Arterial Blood Potassium 4.8 Venous Blood Potassium Vancomycin Trough 09/02/18 09/02/18 09/02/18 06:40 06:40 06:40 WBC 10.0 D RBC 3.05 L Hgb 8.8 L Hct 28.7 L MCV 94.1 MCH 28.9 MCHC 30.7 L RDW 15.6 H Plt Count 325 MPV 9.6 Gran % 87.8 H Lymph % (Auto) 6.2 L [place] % (Auto) 6.0 Eos % (Auto) 0.0 L Baso % (Auto) 0.0 Gran # 8.73 H Lymph # (Auto) 0.6 L [place] # (Auto) 0.6 Eos # (Auto) 0.0 Baso # (Auto) 0.00 PT INR APTT 46.8 H pCO2 pO2 HCO3 ABG pH ABG Total CO2 ABG O2 Saturation ABG O2 Content ABG Base Excess ABG Hemoglobin ABG Carboxyhemoglobin POC ABG HHb (Measured) ABG Methemoglobin ABG O2 Capacity ABG Potassium VBG pH VBG pCO2 VBG HCO3 VBG Total CO2 VBG O2 Sat (Calc) VBG Base Excess VBG Potassium Hgb O2 Saturation Glucose Lactate FiO2 Inspiratory BiPAP Sodium 138 Potassium 5.5 H Chloride 108 H Carbon Dioxide 21 Anion Gap 14 BUN 50 H Creatinine 1.6 H Est GFR ( Amer) 38 Est GFR (Non-Af Amer) 31 Random Glucose 170 H Calcium 9.2 Phosphorus 6.7 H Magnesium 1.9 Total Bilirubin 0.5 AST 176 H D ALT 53 Alkaline Phosphatase 56 Lactate Dehydrogenase Total Creatine Kinase Troponin I 92.50 H* D NT-Pro-B Natriuret Pep Total Protein 7.1 Albumin 3.5 Globulin 3.6 Albumin/Globulin Ratio 1.0 L Arterial Blood Potassium Venous Blood Potassium Vancomycin Trough 09/02/18 08:00 WBC RBC Hgb Hct MCV MCH MCHC RDW Plt Count MPV Gran % Lymph % (Auto) [place] % (Auto) Eos % (Auto) Baso % (Auto) Gran # Lymph # (Auto) [place] # (Auto) Eos # (Auto) Baso # (Auto) PT INR APTT pCO2 32 L pO2 234.0 H HCO3 17.3 L ABG pH 7.34 L ABG Total CO2 18.3 L ABG O2 Saturation 100.2 H ABG O2 Content 12.5 L ABG Base Excess -7.6 L ABG Hemoglobin 8.7 L ABG Carboxyhemoglobin 1.6 H POC ABG HHb (Measured) -0.2 L ABG Methemoglobin 0.9 ABG O2 Capacity 12.5 L ABG Potassium VBG pH VBG pCO2 VBG HCO3 VBG Total CO2 VBG O2 Sat (Calc) VBG Base Excess VBG Potassium Hgb O2 Saturation 97.6 Glucose Lactate FiO2 100.0 Inspiratory BiPAP Sodium Potassium Chloride Carbon Dioxide Anion Gap BUN Creatinine Est GFR ( Amer) Est GFR (Non-Af Amer) Random Glucose Calcium Phosphorus Magnesium Total Bilirubin AST ALT Alkaline Phosphatase Lactate Dehydrogenase Total Creatine Kinase Troponin I NT-Pro-B Natriuret Pep Total Protein Albumin Globulin Albumin/Globulin Ratio Arterial Blood Potassium Venous Blood Potassium Vancomycin Trough Assessment & Plan - Assessment and Plan (Free Text) Assessment: Patient seen and examined on rounds, agree with note with following additions/exceptions: Patient is 73yo female with PMHx of lung cancer with Stage IV, hypertension, 100pk year smoking hx, COPD, cardiac myxoma, admitted for hypoxic resp failure, PNA, ARDS, and NSTEMI Patient currently intubated sedated, on PRVC PEEP 10, FiO2 80%, On Vasopressor support Levophed, Vasopressin, stress dose steroids started CXR with pulm opacities, ARDS vs Volume overload ID consulted Cardiology consulted Pt was previously DNI, reversed by daughter last night prior to intubation ARDS PNA Respiratory failure, hypoxic Lung Ca Stage IV COPD HTN Hx Smoking NSTEMI Renal Failure Recommend: - cont with vent support, low tidal vol ventilation, high PEEP, repeat ABg, daily CXRs - Abx as per ID, Vanco, Zosyn, Doxy, Tamiflu - rule out FLU - panculture, UCx, BCx, procal, obtain sputum culture - Vasopressor support, Levo, Vasopressin, Stress dose steroids - May need Dobutamine - repeat ECHO - obtain UA, Ulytes - would bolus 500cc x 1 - may nheed to be paralyzed if P/F ratio does not improve - Heparin drip, ASA, Statin; hold off BB given in shock - GI ppx - DVT ppx - Obtain palliative care consult - Monitor in MICU Extremely poor prognosis Critical care time 45 minutes
[2018-09-02 08:59] LABS: TROPONIN I 92.5 ng/mL
[2018-09-02] MEDS ORDERED: Sodium Chloride 0.9% 500 ML IV STA (09:05)
--- NOTE | 2018-09-02 09:10 | RAD ---
Date of service: 09/01/2018 HISTORY: sob COMPARISON: 03/01/2014 FINDINGS: LUNGS: There is severe vascular and interstitial congestion PLEURA: No significant pleural effusion identified, no pneumothorax apparent. CARDIOVASCULAR: Aortic calcification Normal cardiac size. OSSEOUS STRUCTURES: No significant abnormalities. VISUALIZED UPPER ABDOMEN: Normal. OTHER FINDINGS: None. IMPRESSION: Severe vascular and interstitial congestion
--- NOTE | 2018-09-02 09:40 | RAD ---
Date of service: 09/02/2018 HISTORY: f/u intubation COMPARISON: 09/01/2018 FINDINGS: LUNGS: Endotracheal tube in satisfactory position. Slight increase in pattern of pulmonary edema PLEURA: No significant pleural effusion identified, no pneumothorax apparent. CARDIOVASCULAR: No aortic atherosclerotic calcification present. Normal cardiac size. No pulmonary vascular congestion. OSSEOUS STRUCTURES: No significant abnormalities. VISUALIZED UPPER ABDOMEN: Normal. OTHER FINDINGS: None. IMPRESSION: Endotracheal tube in satisfactory position. Slight increase in pattern of pulmonary edema
--- NOTE | 2018-09-02 09:42 | RAD ---
Date of service: 09/02/2018 HISTORY: r/o infiltrate COMPARISON: Earlier same day FINDINGS: LUNGS: There is a new right internal jugular line in the SVC. No pneumothorax. Endotracheal tube in satisfactory position. No change in pulmonary edema PLEURA: No significant pleural effusion identified, no pneumothorax apparent. CARDIOVASCULAR: Aortic calcification Normal cardiac size. OSSEOUS STRUCTURES: No significant abnormalities. VISUALIZED UPPER ABDOMEN: Normal. OTHER FINDINGS: None. IMPRESSION: There is a new right internal jugular line in the SVC. No pneumothorax. Endotracheal tube in satisfactory position. No change in pulmonary edema
[2018-09-02] MEDS: NOREPINEPHRINE BIT/0.9 % NACL 4 MG/250 ML BAG IV PRN (09:53)
--- NOTE | 2018-09-02 09:53 | CARD ---
APPROVED REPORT Date of service: 09/01/2018 EKG Measurement Heart [id number] <Conclusion> Sinus tachycardia Left axis deviation Inferior infarct, age undetermined Anteroseptal infarct, age undetermined Marked ST abnormality, possible lateral subendocardial injury Abnormal ECG
--- NOTE | 2018-09-02 09:55 | CP.PCM.CON ---
History of Present Illness - History of Present Illness History of Present Illness: Palliative consult requested by Dr Tony Queen Reason: Goals of care 73 year old female with past medical history of lung cancer who presented on 08/31/17 with shortness of breath and chest pain. Patients daughter described the pain as light and pressure like. The chest pain was constant and radiated to the left arm, left leg, and back. She was also diaphoretic. Her symptoms progressed and son called EMS. Patient denied cough, sputum production, fever, abdominal pain,nausea, vomiting, dizziness, headache, numbness/tingling, dysuria. Initial chest x ray showed severe vascular and interstitial congestion. He symptoms worsened and patient was intubated. EKG: ST, left axis deviation,Inferior infarct & anteroseptal infarct> age undetermined,ST abnormality possible subendocardial injury. Labs today : Wbc 10.0, hgb 8.8, Plt 325, Na 138, K 5.5, BUN 50, [employer] 1.6, glucose 170, AST 176, ALT 53, troponins 2.64> 92.50 , BNP 9330.Blood/urine cultures and serology pending PMHx: lung cancer currently receiving chemotherapy with Dr Dany Matson, hypertension, COPD, cardiac myxoma, asthma. PHSx: right chest port a cath Social History: Former heavy smoker(50 pk year) no alcohol or drug abuse. Lives with son Gavin Valadez. Family History: Non contributory Advance Care Planning: The patient does not have an advanced directive. Review of Systems: As per HPI, patient is intubated,unable to obtain Past Patient History - Infectious Disease Hx of Infectious Diseases: None - Past Social History Smoking Status: Former Smoker - CARDIAC Hx Cardiac Disorders: Yes Hx Hypertension: Yes Other/Comment: mass in heart - PULMONARY Hx Respiratory Disorders: Yes Hx Asthma: Yes Other/Comment: lung ca - NEUROLOGICAL Hx Neurological Disorder: No - HEENT Hx HEENT Problems: No - RENAL Hx Chronic Kidney Disease: No - ENDOCRINE/METABOLIC Hx Endocrine Disorders: No - HEMATOLOGICAL/ONCOLOGICAL Hx Blood Disorders: No - INTEGUMENTARY Hx Dermatological Problems: No - MUSCULOSKELETAL/RHEUMATOLOGICAL Hx Musculoskeletal Disorders: Yes Hx Falls: Yes - GASTROINTESTINAL Hx Gastrointestinal Disorders: No - GENITOURINARY/GYNECOLOGICAL Hx Genitourinary Disorders: No - PSYCHIATRIC Hx Psychophysiologic Disorder: No - SURGICAL HISTORY Hx Surgeries: Yes Other/Comment: Port a cath right CW - ANESTHESIA Hx Anesthesia: Yes Meds Allergies/Adverse Reactions: Allergies Allergy/AdvReac Type Severity Reaction Status Date / Time No Known Allergies Allergy Verified 09/01/18 21:14 - Medications Medications: Current Medications Hydrocortisone Sodium Succinate (Solu-Cortef) 50 mg IVP Q6 FLIP Nitroglycerin/Dextrose (Nitroglycerin 50 Mg/250 Ml D5w) 50 mg in 250 mls @ 1.5 mls/hr IV .Q24H PRN; Protocol PRN Reason: Titrate per protocol Last Admin: 09/01/18 22:31 Dose: mls/hr Vancomycin HCl (Vancomycin 1gm) 1 gm in 250 mls @ 167 mls/hr IVPB DAILY FLIP; Protocol Piperacillin Sod/Tazobactam Sod (Zosyn 3.375 In Ns 100ml) 100 mls @ 25 mls/hr IVPB Q8 FLIP; Protocol Stop: 09/02/18 17:59 Last Admin: 09/02/18 05:22 Dose: 25 mls/hr Propofol (Diprivan) 1,000 mg in 100 mls @ 1.445 mls/hr IV .Q24H PRN; Protocol PRN Reason: TITRATE PER MD ORDER Last Titration: 09/02/18 07:00 Dose: 20 mcg/kg/min, 5.781 mls/hr Heparin Sodium/Sodium Chloride (Heparin 16014 Units/250ml 1/2 Normal Saline) 25,000 units in 250 mls @ 5.77 mls/hr IV .Q24H FLIP; Protocol NOREPINEPHRINE BIT/0.9 % NACL (Levophed 4 Mg/ 250 Ml Ns Premixed) 4 mg in 250 mls @ 15 mls/hr IV .[id number] PRN; Protocol PRN Reason: TITRATE PER MD ORDER Vasopressin 20 units/ Sodium (Chloride) 101 mls @ 9.09 mls/hr IV .Q11H7M FLIP; Protocol Levalbuterol HCl (Xopenex) 0.63 mg IH [id number] PRN PRN Reason: Shortness of Breath Metoprolol Tartrate (Lopressor) 5 mg IVP DAILY [facility] Last Admin: 09/02/18 01:02 Dose: 5 mg Morphine Sulfate (Morphine) 2 mg IVP Q4H PRN PRN Reason: Pain, severe (8-10) Last Admin: 09/02/18 01:44 Dose: 2 mg Ondansetron HCl (Zofran Inj) 4 mg IVP Q6 PRN PRN Reason: Nausea/Vomiting Pantoprazole Sodium (Protonix Inj) 40 mg IVP DAILY FLIP Physical Exam - Constitutional Appears: Chronically Ill - Head Exam Head Exam: NORMOCEPHALIC - Eye Exam Eye Exam: Normal appearance Pupil Exam: NORMAL ACCOMODATION - ENT Exam ENT Exam: Mucous Membranes Moist - Respiratory Exam Respiratory Exam: Decreased Breath Sounds, Wheezes Additional comments: intubated - Cardiovascular Exam Cardiovascular Exam: Tachycardia, +S1, +S2 - GI/Abdominal Exam GI & Abdominal Exam: Normal Bowel Sounds, Soft - Extremities Exam Extremities exam: Positive for: pedal pulses present - Neurological Exam Additional comments: sedated - Skin Skin Exam: Dry, Warm - Additional Findings Additional findings: Palliative performance scale rating 20% Results - Vital Signs Recent Vital Signs: Last Vital Signs Temp 97.4 F L 09/02/18 00:20 Pulse 91 H 09/02/18 08:42 Resp 20 09/02/18 04:02 BP 86/54 L 09/02/18 08:42 Pulse Ox 100 09/02/18 08:42 - Labs Result Diagrams: 09/02/18 06:40 09/02/18 11:30 Labs: Laboratory Results - last 24 hr 09/01/18 09/01/18 09/01/18 21:00 21:00 21:00 WBC 24.6 H RBC 3.25 L Hgb 9.5 L Hct 30.8 L MCV 94.8 MCH 29.2 MCHC 30.8 L RDW 15.6 H Plt Count 457 H MPV 9.5 Gran % Lymph % (Auto) Bowie % (Auto) Eos % (Auto) Baso % (Auto) Gran # Lymph # (Auto) Bowie # (Auto) Eos # (Auto) Baso # (Auto) PT 13.6 H INR 1.19 APTT 31.1 pCO2 pO2 HCO3 ABG pH ABG Total CO2 ABG O2 Saturation ABG O2 Content ABG Base Excess ABG Hemoglobin ABG Carboxyhemoglobin POC ABG HHb (Measured) ABG Methemoglobin ABG O2 Capacity ABG Potassium VBG pH VBG pCO2 VBG HCO3 VBG Total CO2 VBG O2 Sat (Calc) VBG Base Excess VBG Potassium Hgb O2 Saturation Glucose Lactate FiO2 Inspiratory BiPAP Sodium 135 Potassium 4.9 Chloride 105 Carbon Dioxide 17 L Anion Gap 18 BUN 43 H Creatinine 1.6 H Est GFR ( Amer) 38 Est GFR (Non-Af Amer) 31 Random Glucose 267 H Calcium 9.9 Phosphorus Magnesium Total Bilirubin 0.4 AST 46 H ALT 19 Alkaline Phosphatase 62 Lactate Dehydrogenase 590 Total Creatine Kinase 145 Troponin I 2.69 H* NT-Pro-B Natriuret Pep 9330 H Total Protein 7.8 Albumin 4.0 Globulin 3.8 Albumin/Globulin Ratio 1.0 L Arterial Blood Potassium Venous Blood Potassium Vancomycin Trough 09/01/18 09/01/18 09/01/18 21:00 21:50 22:15 WBC RBC Hgb Hct MCV MCH MCHC RDW Plt Count MPV Gran % Lymph % (Auto) Bowie % (Auto) Eos % (Auto) Baso % (Auto) Gran # Lymph # (Auto) Bowie # (Auto) Eos # (Auto) Baso # (Auto) PT INR APTT pCO2 32 L pO2 54.0 L 66 H HCO3 16.1 L ABG pH 7.31 L ABG Total CO2 17.1 L ABG O2 Saturation 90.9 L ABG O2 Content 11.2 L ABG Base Excess -9.2 L ABG Hemoglobin 9.1 L ABG Carboxyhemoglobin 3.1 H POC ABG HHb (Measured) 8.8 H ABG Methemoglobin 0.6 ABG O2 Capacity 12.3 L ABG Potassium VBG pH 7.15 L* VBG pCO2 46.0 VBG HCO3 16.0 L VBG Total CO2 17.4 L VBG O2 Sat (Calc) 92.2 H VBG Base Excess -12.6 L VBG Potassium 5.0 Hgb O2 Saturation 87.5 L Glucose 274 H Lactate 6.2 H* FiO2 40.0 21.0 Inspiratory BiPAP Sodium 135.0 Potassium Chloride 102.0 Carbon Dioxide Anion Gap BUN Creatinine Est GFR ( Amer) Est GFR (Non-Af Amer) Random Glucose Calcium Phosphorus Magnesium Total Bilirubin AST ALT Alkaline Phosphatase Lactate Dehydrogenase Total Creatine Kinase Troponin I NT-Pro-B Natriuret Pep Total Protein Albumin Globulin Albumin/Globulin Ratio Arterial Blood Potassium Venous Blood Potassium 5.0 Vancomycin Trough < 5.0 L 01/04/19 01/04/19 01/04/19 01:08 03:10 05:48 WBC RBC Hgb Hct MCV MCH MCHC RDW Plt Count MPV Gran % Lymph % (Auto) Bowie % (Auto) Eos % (Auto) Baso % (Auto) Gran # Lymph # (Auto) Bowie # (Auto) Eos # (Auto) Baso # (Auto) PT INR APTT pCO2 37 47 H 37 pO2 63.0 L 81.0 168.0 H HCO3 16.6 L 14.9 L 17.8 L ABG pH 7.26 L 7.11 L* 7.29 L ABG Total CO2 17.7 L 16.3 L 18.9 L ABG O2 Saturation 92.9 L 95.9 99.7 H ABG O2 Content 13.0 L 13.2 L ABG Base Excess -9.7 L -14.0 L -8.1 L ABG Hemoglobin 9.8 L 9.4 L ABG Carboxyhemoglobin 2.2 H 1.7 H POC ABG HHb (Measured) 4.0 0.3 ABG Methemoglobin 0.6 1.2 ABG O2 Capacity 13.6 L 13.2 L ABG Potassium 4.8 VBG pH VBG pCO2 VBG HCO3 VBG Total CO2 VBG O2 Sat (Calc) VBG Base Excess VBG Potassium Hgb O2 Saturation 93.2 L 96.9 Glucose 194 H Lactate 2.8 H FiO2 60.0 100.0 100.0 Inspiratory BiPAP 12 Sodium 136.0 Potassium Chloride 107.0 Carbon Dioxide Anion Gap BUN Creatinine Est GFR ( Amer) Est GFR (Non-Af Amer) Random Glucose Calcium Phosphorus Magnesium Total Bilirubin AST ALT Alkaline Phosphatase Lactate Dehydrogenase Total Creatine Kinase Troponin I NT-Pro-B Natriuret Pep Total Protein Albumin Globulin Albumin/Globulin Ratio Arterial Blood Potassium 4.8 Venous Blood Potassium Vancomycin Trough 09/02/18 09/02/18 09/02/18 06:40 06:40 06:40 WBC 10.0 D RBC 3.05 L Hgb 8.8 L Hct 28.7 L MCV 94.1 MCH 28.9 MCHC 30.7 L RDW 15.6 H Plt Count 325 MPV 9.6 Gran % 87.8 H Lymph % (Auto) 6.2 L Bowie % (Auto) 6.0 Eos % (Auto) 0.0 L Baso % (Auto) 0.0 Gran # 8.73 H Lymph # (Auto) 0.6 L Bowie # (Auto) 0.6 Eos # (Auto) 0.0 Baso # (Auto) 0.00 PT INR APTT 46.8 H pCO2 pO2 HCO3 ABG pH ABG Total CO2 ABG O2 Saturation ABG O2 Content ABG Base Excess ABG Hemoglobin ABG Carboxyhemoglobin POC ABG HHb (Measured) ABG Methemoglobin ABG O2 Capacity ABG Potassium VBG pH VBG pCO2 VBG HCO3 VBG Total CO2 VBG O2 Sat (Calc) VBG Base Excess VBG Potassium Hgb O2 Saturation Glucose Lactate FiO2 Inspiratory BiPAP Sodium 138 Potassium 5.5 H Chloride 108 H Carbon Dioxide 21 Anion Gap 14 BUN 50 H Creatinine 1.6 H Est GFR ( Amer) 38 Est GFR (Non-Af Amer) 31 Random Glucose 170 H Calcium 9.2 Phosphorus 6.7 H Magnesium 1.9 Total Bilirubin 0.5 AST 176 H D ALT 53 Alkaline Phosphatase 56 Lactate Dehydrogenase Total Creatine Kinase Troponin I 92.50 H* D NT-Pro-B Natriuret Pep Total Protein 7.1 Albumin 3.5 Globulin 3.6 Albumin/Globulin Ratio 1.0 L Arterial Blood Potassium Venous Blood Potassium Vancomycin Trough 09/02/18 08:00 WBC RBC Hgb Hct MCV MCH MCHC RDW Plt Count MPV Gran % Lymph % (Auto) Bowie % (Auto) Eos % (Auto) Baso % (Auto) Gran # Lymph # (Auto) Bowie # (Auto) Eos # (Auto) Baso # (Auto) PT INR APTT pCO2 32 L pO2 234.0 H HCO3 17.3 L ABG pH 7.34 L ABG Total CO2 18.3 L ABG O2 Saturation 100.2 H ABG O2 Content 12.5 L ABG Base Excess -7.6 L ABG Hemoglobin 8.7 L ABG Carboxyhemoglobin 1.6 H POC ABG HHb (Measured) -0.2 L ABG Methemoglobin 0.9 ABG O2 Capacity 12.5 L ABG Potassium VBG pH VBG pCO2 VBG HCO3 VBG Total CO2 VBG O2 Sat (Calc) VBG Base Excess VBG Potassium Hgb O2 Saturation 97.6 Glucose Lactate FiO2 100.0 Inspiratory BiPAP Sodium Potassium Chloride Carbon Dioxide Anion Gap BUN Creatinine Est GFR ( Amer) Est GFR (Non-Af Amer) Random Glucose Calcium Phosphorus Magnesium Total Bilirubin AST ALT Alkaline Phosphatase Lactate Dehydrogenase Total Creatine Kinase Troponin I NT-Pro-B Natriuret Pep Total Protein Albumin Globulin Albumin/Globulin Ratio Arterial Blood Potassium Venous Blood Potassium Vancomycin Trough Assessment & Plan - Assessment and Plan (Free Text) Assessment: 73 year old female with history of lung cancer, COPD,CHF, cardiac myxoma and COPD who is admitted with respiratory failure, N STEMI,sepsis, hypotension, hyperkalemia and ISAEL. Patient is intubated, sedated. Vasopressors X2 Patient's son Gavin Valadez at bedside. Son verbalized that his mother has history of lung cancer and has been receiving treatment since being diagnosed in March 2018. Mr. Valadez not sure of stage of cancer or what treatment his mother has been receiving. He states she takes "many pills". Son also aware that his mother has suffered a N STEMI. He states that his mother has been through a lot. He explained that she is tolerating her cancer treatment well with almost no side effects. Resuscitation status discussed. Benefits and burdens of CPR/intubation explained. Son aware of the ramifications of aggressive resus citation and prefers that his mother be full code at this time. Mr Valadez is appreciative of palliative support. He declined pastoral support at this time. Time spent with son in goals of care and advance care planning, 30 minutes. Plan: Goals of care and advance care planning Cardio/N STEMI/CHF: ECHO pending. Cardiology following. Continue metoprolol, atorvastin, nitroglycerin,norepinephren, heparin Hyperkalemia: Kayexylate today. Sepsis: Blood/urine cultures/ serology pending. Continue Doxycycline, Merrem and Cefepime.Tamiflu. ID following ISAEL:Continue IVF's, monitor CMP Pulmonary: Maintain 02 sat >95 %. Monitor Chest x ray/ ABG's. Continue SoluCortef,nebulizers
[2018-09-02] MEDS ORDERED: Vancomycin 1gm in NS 250ml 1 GM/250 ML BAG IVPB SCH (10:00)
[2018-09-02] MEDS ORDERED: Metoprolol 1 mg/ml Inj IVP SCH (10:00)
[2018-09-02] MEDS ORDERED: Sod Polystyrene Sulf 15 gm/60 ml Susp PO ONE (10:12)
[2018-09-02] MEDS ORDERED: MEROPENEM 500 MG in NS 500 MG/50 ML BAG IVPB SCH (11:45)
[2018-09-02 12:26] LABS: ALB/GLOB RATIO 0.9 (1.1-1.8); ALBUMIN 3.2 g/dL (3.0-4.8); CALCIUM 8.8 mg/dL (8.4-10.5)
[2018-09-02] MEDS ORDERED: Insulin Regular 1 UNITS/0.01 ML ML IV STA (12:39)
[2018-09-02] MEDS ORDERED: Dextrose 50% SYRINGE Inj (50 ml) IVP ONE (12:40)
[2018-09-02] MEDS ORDERED: Dextrose 50% SYRINGE Inj (50 ml) IVP STA (12:42)
--- NOTE | 2018-09-02 12:55 | RAD ---
Date of service: 09/02/2018 HISTORY: oral gastric tube placement COMPARISON: Earlier same day FINDINGS: LUNGS: Slight improvement in the pattern of pulmonary edema PLEURA: Small pleural effusions CARDIOVASCULAR: Aortic calcification Normal cardiac size. OSSEOUS STRUCTURES: No significant abnormalities. VISUALIZED UPPER ABDOMEN: Normal. OTHER FINDINGS: None. IMPRESSION: Endotracheal tube and nasogastric tube in satisfactory position
[2018-09-02] MEDS ORDERED: Vancomycin 1.25 GM in Sodium Chloride 0.9% 500 ML IVPB ONE (13:12)
--- NOTE | 2018-09-02 13:12 | CP.PCM.PN ---
<Eduardo Reed - Last Filed: 09/02/18 13:17> Subjective - Date & Time of Evaluation Date of Evaluation: 09/02/18 Time of Evaluation: 13:11 - Subjective Subjective: ID consult note 73 year old female with past medical history of lung cancer on chemotherapy and radiation ( last dose several weeks ago), COPD, HTN, asthma, and questionable cardiac myxoma presents to the hospital after acute onset of shortness of breath at home. Patient is currently intubated and sedated. Medical history taken from son at bedside and previous medical records. Patient was at home and developed chest discomfort along with shortness of breath. She took a nap and when she awoke, her symptoms are were worse and EMS was called. Patient came to the hospital and was eventually intubated due to respiratory failure. Medical Hx: lung cancer on chemotherapy and radiation ( last dose several weeks ago), COPD, HTN, asthma, and questionable cardiac myxoma Surgical Hx: chemotherapy port in 03/2018 Family Hx: denies Social Hx: Former smoker, stopped 6 months ago, 2 ppd x 50 years. Denies alcohol or illicit drug use Allergies: NKDA Medications: Reviewed, as per [facility] Objective - Vital Signs/Intake and Output Vital Signs (last 24 hours): Temp Pulse Resp BP Pulse Ox 97.4 F L 91 H 20 99/63 L 100 09/02/18 00:20 09/02/18 08:42 09/02/18 04:02 09/02/18 10:07 09/02/18 08:42 Intake and Output: 09/02/18 09/02/18 06:59 18:59 Intake Total 563 71 Output Total 150 Balance 413 71 - Medications Medications: Current Medications Hydrocortisone Sodium Succinate (Solu-Cortef) 50 mg IVP Q6 FLIP Nitroglycerin/Dextrose (Nitroglycerin 50 Mg/250 Ml D5w) 50 mg in 250 mls @ 1.5 mls/hr IV .Q24H PRN; Protocol PRN Reason: Titrate per protocol Last Admin: 09/01/18 22:31 Dose: mls/hr Vancomycin HCl (Vancomycin 1gm) 1 gm in 250 mls @ 167 mls/hr IVPB DAILY FLIP; Protocol Last Admin: 09/02/18 09:28 Dose: 167 mls/hr Propofol (Diprivan) 1,000 mg in 100 mls @ 1.445 mls/hr IV .Q24H PRN; Protocol PRN Reason: TITRATE PER MD ORDER Last Admin: 09/02/18 13:04 Dose: 20 mcg/kg/min, 5.781 mls/hr Heparin Sodium/Sodium Chloride (Heparin 42155 Units/250ml 1/2 Normal Saline) 25,000 units in 250 mls @ 5.77 mls/hr IV .Q24H FLIP; Protocol Last Admin: 09/02/18 08:00 Dose: 14 units/kg/hr, 6.731 mls/hr NOREPINEPHRINE BIT/0.9 % NACL (Levophed 4 Mg/ 250 Ml Ns Premixed) 4 mg in 250 mls @ 15 mls/hr IV .[id number] PRN; Protocol PRN Reason: TITRATE PER MD ORDER Last Admin: 09/02/18 09:53 Dose: 4 mcg/min, 15 mls/hr Vasopressin 20 units/ Sodium (Chloride) 101 mls @ 9.09 mls/hr IV .Q11H7M FLIP; Protocol Last Admin: 09/02/18 10:07 Dose: 9.09 mls/hr Doxycycline Hyclate 100 mg/ (Sodium Chloride) 100 mls @ 100 mls/hr IVPB Q12 FLIP; Protocol Last Admin: 09/02/18 11:28 Dose: 100 mls/hr Levalbuterol HCl (Xopenex) 0.63 mg IH [id number] PRN PRN Reason: Shortness of Breath Morphine Sulfate (Morphine) 2 mg IVP Q4H PRN PRN Reason: Pain, severe (8-10) Last Admin: 09/02/18 01:44 Dose: 2 mg Ondansetron HCl (Zofran Inj) 4 mg IVP Q6 PRN PRN Reason: Nausea/Vomiting Oseltamivir Phosphate (Tamiflu Cap) 30 mg PO BID [facility]; Protocol Pantoprazole Sodium (Protonix Inj) 40 mg IVP DAILY [facility] Last Admin: 09/02/18 09:29 Dose: 40 mg - Labs Labs: 09/02/18 06:40 09/02/18 11:30 PT 13.6 SECONDS (9.4-12.5) H 09/01/18 21:00 INR 1.19 09/01/18 21:00 APTT 46.8 Seconds (25.1-36.5) H 09/02/18 06:40 - Constitutional Appears: Non-toxic, No Acute Distress - Head Exam Head Exam: ATRAUMATIC, NORMAL INSPECTION, NORMOCEPHALIC - ENT Exam ENT Exam: Mucous Membranes Moist - Respiratory Exam Respiratory Exam: Rales (Diffuse, b/l), NORMAL BREATHING PATTERN. absent: Rhonchi, Wheezes - Cardiovascular Exam Cardiovascular Exam: RRR, +S1, +S2 - GI/Abdominal Exam GI & Abdominal Exam: Soft, Normal Bowel Sounds. absent: Tenderness - Extremities Exam Extremities Exam: Pedal Edema (+2 b/l) - Neurological Exam Additional comments: Sedated - Skin Skin Exam: Intact, Normal Color, Warm Assessment and Plan - Assessment and Plan (Free Text) Plan: SIRS secondary to cardiogenic shock NSTEMI Acute kidney injury R/O pneumonia Hx of Lung cancer Hx of HTN Hx of COPD Hx of cardiac myxoma Plan Patient will have Vancomycin loading dose one time and have scheduled Vancomycin stopped due to acute kidney injury. We will obtain a vancomycin level tomorrow morning. We will stop Zosyn and start Merrem. We will continue Doxycycline at this time. We will repeat chest x-ray in the morning to further evaluate possible pneumonia. We will obtain Procalcitonin and influenza screening. Continue current medical management. Brianna, PGY-3 <Omar Jefferson - Last Filed: 09/02/18 19:15> Objective - Vital Signs/Intake and Output Vital Signs (last 24 hours): Temp Pulse Resp BP Pulse Ox 97.4 F L 107 H 20 114/57 L 100 09/02/18 00:20 09/02/18 16:45 09/02/18 04:02 09/02/18 16:45 09/02/18 16:45 Intake and Output: 09/02/18 09/03/18 18:59 06:59 Intake Total 81 Balance 81 - Medications Medications: Current Medications Hydrocortisone Sodium Succinate (Solu-Cortef) 50 mg IVP Q6 FLIP Last Admin: 09/02/18 17:52 Dose: 50 mg Nitroglycerin/Dextrose (Nitroglycerin 50 Mg/250 Ml D5w) 50 mg in 250 mls @ 1.5 mls/hr IV .Q24H PRN; Protocol PRN Reason: Titrate per protocol Last Admin: 09/01/18 22:31 Dose: mls/hr Propofol (Diprivan) 1,000 mg in 100 mls @ 1.445 mls/hr IV .Q24H PRN; Protocol PRN Reason: TITRATE PER MD ORDER Last Admin: 09/02/18 13:04 Dose: 20 mcg/kg/min, 5.781 mls/hr Heparin Sodium/Sodium Chloride (Heparin 54150 Units/250ml 1/2 Normal Saline) 25,000 units in 250 mls @ 5.77 mls/hr IV .Q24H FLIP; Protocol Last Titration: 09/02/18 15:33 Dose: 16 units/kg/hr, 7.693 mls/hr NOREPINEPHRINE BIT/0.9 % NACL (Levophed 4 Mg/ 250 Ml Ns Premixed) 4 mg in 250 mls @ 15 mls/hr IV .[id number] PRN; Protocol PRN Reason: TITRATE PER MD ORDER Last Admin: 09/02/18 09:53 Dose: 4 mcg/min, 15 mls/hr Vasopressin 20 units/ Sodium (Chloride) 101 mls @ 9.09 mls/hr IV .Q11H7M FLIP; Protocol Last Admin: 09/02/18 10:07 Dose: 9.09 mls/hr Doxycycline Hyclate 100 mg/ (Sodium Chloride) 100 mls @ 100 mls/hr IVPB Q12 FLIP; Protocol Last Admin: 09/02/18 11:28 Dose: 100 mls/hr Dobutamine HCl/Dextrose (Dobutamine/Dextrose 5% 500mg/250ml) 500 mg in 250 mls @ 3.606 mls/hr IV .Q24H PRN; Protocol PRN Reason: TITRATE PER PROTOCOL Last Admin: 09/02/18 15:52 Dose: 2.5 mcg/kg/min, 3.606 mls/hr Meropenem/Sodium Chloride (Merrem Iv 500 Mg/Ns 50 Ml) 500 mg in 50 mls @ 100 mls/hr IVPB Q12 FLIP; Protocol Stop: 09/03/18 10:29 Levalbuterol HCl (Xopenex) 0.63 mg IH [id number] PRN PRN Reason: Shortness of Breath Morphine Sulfate (Morphine) 2 mg IVP Q4H PRN PRN Reason: Pain, severe (8-10) Last Admin: 09/02/18 17:42 Dose: 2 mg Ondansetron HCl (Zofran Inj) 4 mg IVP Q6 PRN PRN Reason: Nausea/Vomiting Oseltamivir Phosphate (Tamiflu Cap) 30 mg PO BID [facility]IP; Protocol Last Admin: 09/02/18 15:08 Dose: 30 mg Pantoprazole Sodium (Protonix Inj) 40 mg IVP DAILY FLIP Last Admin: 09/02/18 09:29 Dose: 40 mg - Labs Labs: 09/02/18 06:40 09/02/18 16:32 PT 13.6 SECONDS (9.4-12.5) H 09/01/18 21:00 INR 1.19 09/01/18 21:00 APTT 36.9 Seconds (25.1-36.5) H 09/02/18 14:10 Assessment and Plan - Assessment and Plan (Free Text) Plan: Infectious diseases Attending Physician Attestation Patient seen and examined, discussed with senior medical transcriptionist. I have reviewed the patient's history of present illness, past medical, social, personal and family histories, pertinent physical exam findings, course so far in this hospital admission, pertinent laboratory and imaging results. I agree with the above findings, assessment and plan. In addition, will start a loading dose of IV Vancomycin and start renally-adjusted Merrem abd Doxycycline for patient with SIRS with cardiogenic shock and VDRF probably from acute NSTEMI with congestive heart failure. Cannot rule out pneumonia. Follow up repeat CXR tomorrow, PCT, blood cx. Follow up plans of Cardiology.
[2018-09-02] MEDS ORDERED: DOBUTamine 500mg/250ml D5W 500 MG/250 ML BAG IV PRN (15:25)
--- NOTE | 2018-09-02 16:08 | CON ---
DATE: 09/02/2018 REQUESTING PHYSICIAN: Dr. Queen. REASON FOR CONSULTATION: Probable acute myocardial fraction. HISTORY OF PRESENT ILLNESS: This is a 73-year-old woman with a history of reported stage IV lung cancer followed by Dr. Matson, who was brought to the emergency room by EMS with respiratory distress yesterday. She was intubated and is currently in the ICU, sedated. She is seen in the presence of her son at the bedside, and he provided the rest of her history. She apparently has advanced lung cancer and has been undergoing treatment with chemotherapy and radiation. She complained of back pain yesterday as well as respiratory distress and was admitted. She was noted to be tachycardic with an ischemic EKG upon admission. Initial troponin was 2.69, follow up troponin is 92.5. According to the son, she has no known prior cardiac history. She was a heavy smoker for many years. She is reported to be not hypertensive or diabetic. He was uncertain if she had hyperlipidemia. There is no family history of premature heart disease. PAST MEDICAL HISTORY: Notable for the problems mentioned above. ALLERGIES: SHE HAS NO REPORTED ALLERGIES. MEDICATIONS AT HOME: Included Neurontin, Zofran, Megace, folic acid, and Percocet. SOCIAL HISTORY: Longstanding history of tobacco abuse. No history of alcohol abuse. FAMILY HISTORY: Both parents are from age-related illness. REVIEW OF SYSTEMS: Ten-point review of systems is otherwise unremarkable according to her son. PHYSICAL EXAMINATION: GENERAL: She is a chronically ill-appearing elderly woman. She is currently intubated and sedated. VITAL SIGNS: Her blood pressure is 99/62 with a pulse of 90 in sinus, respirations are 22, and she is afebrile. HEENT: She is orally intubated. NECK: No JVD noted. CHEST: Bilateral coarse rhonchi heard. HEART: PMI displaced laterally with an irregularly regular rhythm. ABDOMEN: Soft. Bowel sounds are present. EXTREMITIES: No edema. Muscle wasting noted. SKIN: Warm and dry. PSYCHIATRIC: Unable to assess. NEUROLOGIC: Unable to assess. DIAGNOSTIC DATA: Potassium 5.5, BUN and creatinine are 50 and 1.6, glucose 170. White count 10, hemoglobin and hematocrit of 8.8 and 28.7 with a platelet count of 325,000. Arterial blood gas revealed a pH 7.11, pCO2 of 47, pO2 of 81, repeat after intubation was 7.34, 32, and 234. As mentioned, her initial troponin was 2.69, repeat is 92.5. Lactate was 6.2 on admission and repeat was 2.8. IMAGING DATA: 1. Electrocardiogram reveals sinus tachycardia with diffuse anterolateral ischemic changes. 2. Chest x-ray reveals borderline cardiac silhouette enlargement with diffuse increased interstitial and reticular nodular pattern. IMPRESSION: 1. Respiratory failure, likely multifactorial in the setting of acute myocardial fraction, superimposed on advanced lung cancer. 2. Acute myocardial infarction with borderline hemodynamics, critically ill at this time. 3. History of tobacco abuse. 4. Moderate anemia, somewhat worsened since admission. 5. Renal insufficiency. RECOMMENDATIONS: The ventilatory support should continue. IV heparin has been initiated and should continue for now. Beta-william therapy will need to be held given her borderline hemodynamics. Aspirin and Plavix will be administered; however, given her anemia, stool guaiacs will need to be monitored for overt gastrointestinal bleeding. Steroids have been initiated, which can also exacerbate potential for bleeding. Pressor support with Levophed and vasopressin are being contemplated. Further details regarding the extent of her disease process would be helpful. Clarification of a DNR and DNI order would be helpful as well. Given her history of advanced lung cancer, conservative cardiac management appears most appropriate. Her prognosis is extremely guarded from a cardiac standpoint and conservative care and comfort measures should be employed. Thank you for this consultation. I will be happy to follow through her hospital course. Mark Etienne MD
--- NOTE | 2018-09-02 16:25 | CP.PCM.CON ---
History of Present Illness - History of Present Illness History of Present Illness: 73 year old female with history of stage IV lung adenocarcioma diagnosed in 03/2018 s/p chemotherapy (Ketruda/Carb/Alimta) currently on Pembrlizumab last dose on 08/26/18 now admitted for a acute SC. As per daughter at bedside she woke up after a nap and complained of severe chest pain which was typical. Her son called the EMS and she was taken to the hospital. Currently patient is intubated and slightly sedated, she is on multiple pressers and broad spectrum antibiotics. She had a similar episode of chest pain in the office late june, where I sent her for evaluation at [facility] and she was placed under observation after ACS was ruled out. ROS: cannot obtain as patient is intubated PMH: as stated above. PSH: chemotherapy port in March 2018 FMHx: denies SHx: 2 ppd for 50 years, stopped in March 2018; denies drinking or recreational drug use Allergies: NKDA Past Patient History - Infectious Disease Hx of Infectious Diseases: None - Past Social History Smoking Status: Former Smoker - CARDIAC Hx Cardiac Disorders: Yes Hx Hypertension: Yes Other/Comment: mass in heart - PULMONARY Hx Respiratory Disorders: Yes Hx Asthma: Yes Other/Comment: lung ca - NEUROLOGICAL Hx Neurological Disorder: No - HEENT Hx HEENT Problems: No - RENAL Hx Chronic Kidney Disease: No - ENDOCRINE/METABOLIC Hx Endocrine Disorders: No - HEMATOLOGICAL/ONCOLOGICAL Hx Blood Disorders: No - INTEGUMENTARY Hx Dermatological Problems: No - MUSCULOSKELETAL/RHEUMATOLOGICAL Hx Musculoskeletal Disorders: Yes Hx Falls: Yes - GASTROINTESTINAL Hx Gastrointestinal Disorders: No - GENITOURINARY/GYNECOLOGICAL Hx Genitourinary Disorders: No - PSYCHIATRIC Hx Psychophysiologic Disorder: No - SURGICAL HISTORY Hx Surgeries: Yes Other/Comment: Port a cath right CW - ANESTHESIA Hx Anesthesia: Yes Meds Allergies/Adverse Reactions: Allergies Allergy/AdvReac Type Severity Reaction Status Date / Time No Known Allergies Allergy Verified 09/01/18 21:14 - Medications Medications: Current Medications Hydrocortisone Sodium Succinate (Solu-Cortef) 50 mg IVP Q6 [facility] Last Admin: 09/02/18 15:06 Dose: 50 mg Nitroglycerin/Dextrose (Nitroglycerin 50 Mg/250 Ml D5w) 50 mg in 250 mls @ 1.5 mls/hr IV .Q24H PRN; Protocol PRN Reason: Titrate per protocol Last Admin: 09/01/18 22:31 Dose: mls/hr Propofol (Diprivan) 1,000 mg in 100 mls @ 1.445 mls/hr IV .Q24H PRN; Protocol PRN Reason: TITRATE PER MD ORDER Last Admin: 09/02/18 13:04 Dose: 20 mcg/kg/min, 5.781 mls/hr Heparin Sodium/Sodium Chloride (Heparin 21221 Units/250ml 1/2 Normal Saline) 25,000 units in 250 mls @ 5.77 mls/hr IV .Q24H FLIP; Protocol Last Admin: 09/02/18 08:00 Dose: 14 units/kg/hr, 6.731 mls/hr NOREPINEPHRINE BIT/0.9 % NACL (Levophed 4 Mg/ 250 Ml Ns Premixed) 4 mg in 250 mls @ 15 mls/hr IV .[id number] PRN; Protocol PRN Reason: TITRATE PER MD ORDER Last Admin: 09/02/18 09:53 Dose: 4 mcg/min, 15 mls/hr Vasopressin 20 units/ Sodium (Chloride) 101 mls @ 9.09 mls/hr IV .Q11H7M FLIP; Protocol Last Admin: 09/02/18 10:07 Dose: 9.09 mls/hr Doxycycline Hyclate 100 mg/ (Sodium Chloride) 100 mls @ 100 mls/hr IVPB Q12 FLIP; Protocol Last Admin: 09/02/18 11:28 Dose: 100 mls/hr Vancomycin HCl 1.25 gm/ Sodium (Chloride) 500 mls @ 167 mls/hr IVPB ONCE ONE; Protocol Stop: 09/02/18 16:11 Last Admin: 09/02/18 15:01 Dose: 167 mls/hr Dobutamine HCl/Dextrose (Dobutamine/Dextrose 5% 500mg/250ml) 500 mg in 250 mls @ 3.606 mls/hr IV .Q24H PRN; Protocol PRN Reason: TITRATE PER PROTOCOL Levalbuterol HCl (Xopenex) 0.63 mg IH [id number] PRN PRN Reason: Shortness of Breath Morphine Sulfate (Morphine) 2 mg IVP Q4H PRN PRN Reason: Pain, severe (8-10) Last Admin: 09/02/18 01:44 Dose: 2 mg Ondansetron HCl (Zofran Inj) 4 mg IVP Q6 PRN PRN Reason: Nausea/Vomiting Oseltamivir Phosphate (Tamiflu Cap) 30 mg PO BID [facility]; Protocol Last Admin: 09/02/18 15:08 Dose: 30 mg Pantoprazole Sodium (Protonix Inj) 40 mg IVP DAILY [facility] Last Admin: 09/02/18 09:29 Dose: 40 mg Physical Exam - Constitutional Appears: Older Than Stated Age, Chronically Ill - Head Exam Head Exam: ATRAUMATIC, NORMAL INSPECTION, NORMOCEPHALIC Additional comments: ET in place on vent - Eye Exam Eye Exam: Conjunctival injection, EOMI, PERRL - ENT Exam ENT Exam: Mucous Membranes Moist, Normal Exam - Neck Exam Neck exam: Positive for: Normal Inspection. Negative for: Lymphadenopathy - Respiratory Exam Respiratory Exam: Rhonchi Additional comments: on vent with rhonci diffusely throughout - Cardiovascular Exam Cardiovascular Exam: Tachycardia, +S1, +S2 - GI/Abdominal Exam GI & Abdominal Exam: Normal Bowel Sounds, Soft - Rectal Exam Rectal Exam: Deferred - Extremities Exam Extremities exam: Positive for: pedal edema - Neurological Exam Neurological exam: Alert Additional comments: slightly sedated while intubated - Psychiatric Exam Psychiatric exam: Anxious Results - Vital Signs Recent Vital Signs: Last Vital Signs Temp 97.4 F L 09/02/18 00:20 Pulse 99 H 09/02/18 14:45 Resp 20 09/02/18 04:02 BP 98/66 L 09/02/18 14:45 Pulse Ox 100 09/02/18 14:45 - Labs Result Diagrams: 09/02/18 06:40 09/02/18 11:30 Labs: Laboratory Results - last 24 hr 09/01/18 09/01/18 09/01/18 21:00 21:00 21:00 WBC 24.6 H RBC 3.25 L Hgb 9.5 L Hct 30.8 L MCV 94.8 MCH 29.2 MCHC 30.8 L RDW 15.6 H Plt Count 457 H MPV 9.5 Gran % Lymph % (Auto) [place] % (Auto) Eos % (Auto) Baso % (Auto) Gran # Lymph # (Auto) [place] # (Auto) Eos # (Auto) Baso # (Auto) PT 13.6 H INR 1.19 APTT 31.1 pCO2 pO2 HCO3 ABG pH ABG Total CO2 ABG O2 Saturation ABG O2 Content ABG Base Excess ABG Hemoglobin ABG Carboxyhemoglobin POC ABG HHb (Measured) ABG Methemoglobin ABG O2 Capacity ABG Potassium VBG pH VBG pCO2 VBG HCO3 VBG Total CO2 VBG O2 Sat (Calc) VBG Base Excess VBG Potassium Hgb O2 Saturation Glucose Lactate FiO2 Inspiratory BiPAP Sodium 135 Potassium 4.9 Chloride 105 Carbon Dioxide 17 L Anion Gap 18 BUN 43 H Creatinine 1.6 H Est GFR ( Amer) 38 Est GFR (Non-Af Amer) 31 Random Glucose 267 H Calcium 9.9 Phosphorus Magnesium Total Bilirubin 0.4 AST 46 H ALT 19 Alkaline Phosphatase 62 Lactate Dehydrogenase 590 Total Creatine Kinase 145 Troponin I 2.69 H* NT-Pro-B Natriuret Pep 9330 H Total Protein 7.8 Albumin 4.0 Globulin 3.8 Albumin/Globulin Ratio 1.0 L Procalcitonin Arterial Blood Potassium Venous Blood Potassium Vancomycin Trough 09/01/18 09/01/18 09/01/18 21:00 21:00 21:50 WBC RBC Hgb Hct MCV MCH MCHC RDW Plt Count MPV Gran % Lymph % (Auto) [place] % (Auto) Eos % (Auto) Baso % (Auto) Gran # Lymph # (Auto) [place] # (Auto) Eos # (Auto) Baso # (Auto) PT INR APTT pCO2 32 L pO2 54.0 L HCO3 16.1 L ABG pH 7.31 L ABG Total CO2 17.1 L ABG O2 Saturation 90.9 L ABG O2 Content 11.2 L ABG Base Excess -9.2 L ABG Hemoglobin 9.1 L ABG Carboxyhemoglobin 3.1 H POC ABG HHb (Measured) 8.8 H ABG Methemoglobin 0.6 ABG O2 Capacity 12.3 L ABG Potassium VBG pH VBG pCO2 VBG HCO3 VBG Total CO2 VBG O2 Sat (Calc) VBG Base Excess VBG Potassium Hgb O2 Saturation 87.5 L Glucose Lactate FiO2 40.0 Inspiratory BiPAP Sodium Potassium Chloride Carbon Dioxide Anion Gap BUN Creatinine Est GFR ( Amer) Est GFR (Non-Af Amer) Random Glucose Calcium Phosphorus Magnesium Total Bilirubin AST ALT Alkaline Phosphatase Lactate Dehydrogenase Total Creatine Kinase Troponin I NT-Pro-B Natriuret Pep Total Protein Albumin Globulin Albumin/Globulin Ratio Procalcitonin 0.39 Arterial Blood Potassium Venous Blood Potassium Vancomycin Trough < 5.0 L 09/01/18 09/02/18 09/02/18 22:15 01:08 03:10 WBC RBC Hgb Hct MCV MCH MCHC RDW Plt Count MPV Gran % Lymph % (Auto) [place] % (Auto) Eos % (Auto) Baso % (Auto) Gran # Lymph # (Auto) [place] # (Auto) Eos # (Auto) Baso # (Auto) PT INR APTT pCO2 37 47 H pO2 66 H 63.0 L 81.0 HCO3 16.6 L 14.9 L ABG pH 7.26 L 7.11 L* ABG Total CO2 17.7 L 16.3 L ABG O2 Saturation 92.9 L 95.9 ABG O2 Content 13.0 L ABG Base Excess -9.7 L -14.0 L ABG Hemoglobin 9.8 L ABG Carboxyhemoglobin 2.2 H POC ABG HHb (Measured) 4.0 ABG Methemoglobin 0.6 ABG O2 Capacity 13.6 L ABG Potassium 4.8 VBG pH 7.15 L* VBG pCO2 46.0 VBG HCO3 16.0 L VBG Total CO2 17.4 L VBG O2 Sat (Calc) 92.2 H VBG Base Excess -12.6 L VBG Potassium 5.0 Hgb O2 Saturation 93.2 L Glucose 274 H 194 H Lactate 6.2 H* 2.8 H FiO2 21.0 60.0 100.0 Inspiratory BiPAP 12 Sodium 135.0 136.0 Potassium Chloride 102.0 107.0 Carbon Dioxide Anion Gap BUN Creatinine Est GFR ( Amer) Est GFR (Non-Af Amer) Random Glucose Calcium Phosphorus Magnesium Total Bilirubin AST ALT Alkaline Phosphatase Lactate Dehydrogenase Total Creatine Kinase Troponin I NT-Pro-B Natriuret Pep Total Protein Albumin Globulin Albumin/Globulin Ratio Procalcitonin Arterial Blood Potassium 4.8 Venous Blood Potassium 5.0 Vancomycin Trough 09/02/18 09/02/18 09/02/18 05:48 06:40 06:40 WBC 10.0 D RBC 3.05 L Hgb 8.8 L Hct 28.7 L MCV 94.1 MCH 28.9 MCHC 30.7 L RDW 15.6 H Plt Count 325 MPV 9.6 Gran % 87.8 H Lymph % (Auto) 6.2 L [place] % (Auto) 6.0 Eos % (Auto) 0.0 L Baso % (Auto) 0.0 Gran # 8.73 H Lymph # (Auto) 0.6 L [place] # (Auto) 0.6 Eos # (Auto) 0.0 Baso # (Auto) 0.00 PT INR APTT pCO2 37 pO2 168.0 H HCO3 17.8 L ABG pH 7.29 L ABG Total CO2 18.9 L ABG O2 Saturation 99.7 H ABG O2 Content 13.2 L ABG Base Excess -8.1 L ABG Hemoglobin 9.4 L ABG Carboxyhemoglobin 1.7 H POC ABG HHb (Measured) 0.3 ABG Methemoglobin 1.2 ABG O2 Capacity 13.2 L ABG Potassium VBG pH VBG pCO2 VBG HCO3 VBG Total CO2 VBG O2 Sat (Calc) VBG Base Excess VBG Potassium Hgb O2 Saturation 96.9 Glucose Lactate FiO2 100.0 Inspiratory BiPAP Sodium 138 Potassium 5.5 H Chloride 108 H Carbon Dioxide 21 Anion Gap 14 BUN 50 H Creatinine 1.6 H Est GFR ( Amer) 38 Est GFR (Non-Af Amer) 31 Random Glucose 170 H Calcium 9.2 Phosphorus 6.7 H Magnesium 1.9 Total Bilirubin 0.5 AST 176 H D ALT 53 Alkaline Phosphatase 56 Lactate Dehydrogenase Total Creatine Kinase Troponin I 92.50 H* D NT-Pro-B Natriuret Pep Total Protein 7.1 Albumin 3.5 Globulin 3.6 Albumin/Globulin Ratio 1.0 L Procalcitonin Arterial Blood Potassium Venous Blood Potassium Vancomycin Trough 09/02/18 09/02/18 09/02/18 06:40 08:00 11:30 WBC RBC Hgb Hct MCV MCH MCHC RDW Plt Count MPV Gran % Lymph % (Auto) [place] % (Auto) Eos % (Auto) Baso % (Auto) Gran # Lymph # (Auto) [place] # (Auto) Eos # (Auto) Baso # (Auto) PT INR APTT 46.8 H pCO2 32 L pO2 234.0 H HCO3 17.3 L ABG pH 7.34 L ABG Total CO2 18.3 L ABG O2 Saturation 100.2 H ABG O2 Content 12.5 L ABG Base Excess -7.6 L ABG Hemoglobin 8.7 L ABG Carboxyhemoglobin 1.6 H POC ABG HHb (Measured) -0.2 L ABG Methemoglobin 0.9 ABG O2 Capacity 12.5 L ABG Potassium VBG pH VBG pCO2 VBG HCO3 VBG Total CO2 VBG O2 Sat (Calc) VBG Base Excess VBG Potassium Hgb O2 Saturation 97.6 Glucose Lactate FiO2 100.0 Inspiratory BiPAP Sodium 137 Potassium 6.0 H* Chloride 110 H Carbon Dioxide 21 Anion Gap 13 BUN 51 H Creatinine 1.7 H Est GFR ( Amer) 35 Est GFR (Non-Af Amer) 29 Random Glucose 155 H Calcium 8.8 Phosphorus Magnesium Total Bilirubin 0.5 AST 226 H D ALT 55 Alkaline Phosphatase 54 Lactate Dehydrogenase Total Creatine Kinase Troponin I 114.00 H* D NT-Pro-B Natriuret Pep Total Protein 6.8 Albumin 3.2 Globulin 3.6 Albumin/Globulin Ratio 0.9 L Procalcitonin Arterial Blood Potassium Venous Blood Potassium Vancomycin Trough 09/02/18 14:10 WBC RBC Hgb Hct MCV MCH MCHC RDW Plt Count MPV Gran % Lymph % (Auto) [place] % (Auto) Eos % (Auto) Baso % (Auto) Gran # Lymph # (Auto) [place] # (Auto) Eos # (Auto) Baso # (Auto) PT INR APTT 36.9 H pCO2 pO2 HCO3 ABG pH ABG Total CO2 ABG O2 Saturation ABG O2 Content ABG Base Excess ABG Hemoglobin ABG Carboxyhemoglobin POC ABG HHb (Measured) ABG Methemoglobin ABG O2 Capacity ABG Potassium VBG pH VBG pCO2 VBG HCO3 VBG Total CO2 VBG O2 Sat (Calc) VBG Base Excess VBG Potassium Hgb O2 Saturation Glucose Lactate FiO2 Inspiratory BiPAP Sodium Potassium Chloride Carbon Dioxide Anion Gap BUN Creatinine Est GFR ( Amer) Est GFR (Non-Af Amer) Random Glucose Calcium Phosphorus Magnesium Total Bilirubin AST ALT Alkaline Phosphatase Lactate Dehydrogenase Total Creatine Kinase Troponin I NT-Pro-B Natriuret Pep Total Protein Albumin Globulin Albumin/Globulin Ratio Procalcitonin Arterial Blood Potassium Venous Blood Potassium Vancomycin Trough Assessment & Plan - Assessment and Plan (Free Text) Assessment: In summary this is a 73 year old female with history of metastatic lung adenocracnoma dx 03/2018 s/p chemotherapy and was on maintenance Pemrbolizumab last dose 08/26/18 admitted for ACS with elevated troponins >100 currently on broad spectrum antibiotics. Patient had a recent CT chest/abd/pelvis at [facility] [facility] on 08/09/18 which showed stable disease and improvement in some lesions. Plan Monitor CBC and transfuse as clinically indicated Would continue serial trops Continue broad spectrum antibiotics Adequate pain control (was on Fentanyl 25mcg TD q72h and Percocet PRN for breakthrough pain) Discussed goals of care with daughter at bedside, still wants full code but understand the grim prognosis. States she will consider changing code status if clinical picture worsens. Poor prognosis Will continue to follow Thank you for allowing me to partake in your patients care. Sincerely, Jason Sánchez
[2018-09-02] MEDS ORDERED: Morphine 2 mg/ml ISec IVP STA (20:10)
[2018-09-02] MEDS: MEROPENEM 500 MG in NS 500 MG/50 ML BAG IVPB SCH (21:21)
[2018-09-03] MEDS: Morphine 4 mg/ml ISec IVP PRN ×2 (00:53→17:09)
[2018-09-03] MEDS ORDERED: Morphine 2 mg/ml ISec IVP STA (03:54)
[2018-09-03] MEDS ORDERED: Amiodarone 150 mg/D5W 100 ml 150 MG/100 ML BAG IVPB ONE (04:13)
[2018-09-03 05:35] LABS: ARTERIAL BLOOD GAS HCO3 16.1 mmol/L (21-28); ARTERIAL BLOOD GAS O2 CAPACITY 9.9 mL/dl (16-24); ARTERIAL BLOOD GAS O2 CONTENT 9.9 ML/dl (15-23); ARTERIAL BLOOD GAS O2 SAT 100.1 % (95-98); ARTERIAL BLOOD GAS PCO2 32 mm/Hg (35-45); ARTERIAL BLOOD GAS PH 7.31 (7.35-7.45); ARTERIAL BLOOD GAS TCO2 17.1 mmol.L (22-28)
[2018-09-03 05:46] LABS: GRAN # 14.65 (1.4-6.5); GRAN % 89.5 % (50.0-68.0); HEMOGLOBIN 8.1 g/dL (12.0-16.0); LYMPH # 0.7 (1.2-3.4); MEAN CELL VOLUME 92.8 fl (80.0-105.0); MEAN CORPUSCULAR HGB CONC 31.3 g/dl (31.0-37.0); MONO # 1.1 (0.1-0.6); MONO % 6.5 % (1.0-6.0); PLATELET COUNT 316 10^3/uL (120.0-450.0); RBC 2.79 10^6/uL (3.5-6.1); RED CELL DISTRIBUTION WIDTH 15.7 % (11.5-14.5); WHITE BLOOD COUNT 16.4 10^3/uL (4.5-11.0)
[2018-09-03 06:07] LABS: ALB/GLOB RATIO 0.9 (1.1-1.8); ALBUMIN 3.2 g/dL (3.0-4.8); CALCIUM 8.9 mg/dL (8.4-10.5)
[2018-09-03 06:55] LABS: BAND 1 % (0-2); LYMPHOCYTE 3 % (22.0-35.0); METAMYELOCYTE 2 %; MONOCYTE 3 % (1.0-6.0); MYELOCYTE 1 %; NEUTROPHIL 90 % (50.0-70.0)
[2018-09-03 06:56] LABS: PLATELET ESTIMATE NORMAL (NORMAL)
--- NOTE | 2018-09-03 07:26 | CP.PCM.PN ---
<McnealBrock L - Last Filed: 09/03/18 16:11> Subjective - Date & Time of Evaluation Date of Evaluation: 09/03/18 Time of Evaluation: 07:24 - Subjective Subjective: Resident Progress Note for Hospitalist Service Patient examined at bedside. Overnight patient was agitated and had sinus tachycardia. Cardizem and amiodarone were administered. Patient is still intubated and sedated on propofol drip. Unable to provide history, does not follow commands. Objective - Vital Signs/Intake and Output Vital Signs (last 24 hours): Temp Pulse Resp BP Pulse Ox 98.4 F 110 H 20 93/36 L 100 09/03/18 06:00 09/03/18 06:00 09/02/18 04:02 09/03/18 06:00 09/03/18 06:00 Intake and Output: 09/03/18 09/03/18 06:59 18:59 Intake Total 912 Output Total 300 Balance 612 - Medications Medications: Current Medications Hydrocortisone Sodium Succinate (Solu-Cortef) 50 mg IVP Q6 FLIP Last Admin: 09/03/18 05:35 Dose: 50 mg Nitroglycerin/Dextrose (Nitroglycerin 50 Mg/250 Ml D5w) 50 mg in 250 mls @ 1.5 mls/hr IV .Q24H PRN; Protocol PRN Reason: Titrate per protocol Last Admin: 09/01/18 22:31 Dose: mls/hr Propofol (Diprivan) 1,000 mg in 100 mls @ 1.445 mls/hr IV .Q24H PRN; Protocol PRN Reason: TITRATE PER MD ORDER Last Titration: 09/02/18 20:00 Dose: 34.59 mcg/kg/min, 10 mls/hr Heparin Sodium/Sodium Chloride (Heparin 77416 Units/250ml 1/2 Normal Saline) 25,000 units in 250 mls @ 5.77 mls/hr IV .Q24H FLIP; Protocol Last Titration: 09/02/18 22:23 Dose: 18 units/kg/hr, 8.655 mls/hr NOREPINEPHRINE BIT/0.9 % NACL (Levophed 4 Mg/ 250 Ml Ns Premixed) 4 mg in 250 mls @ 15 mls/hr IV .[id number] PRN; Protocol PRN Reason: TITRATE PER MD ORDER Last Admin: 09/02/18 09:53 Dose: 4 mcg/min, 15 mls/hr Vasopressin 20 units/ Sodium (Chloride) 101 mls @ 9.09 mls/hr IV .Q11H7M [facility]; Protocol Last Admin: 09/02/18 10:07 Dose: 9.09 mls/hr Doxycycline Hyclate 100 mg/ (Sodium Chloride) 100 mls @ 100 mls/hr IVPB Q12 FLIP; Protocol Last Admin: 09/02/18 22:25 Dose: 100 mls/hr Dobutamine HCl/Dextrose (Dobutamine/Dextrose 5% 500mg/250ml) 500 mg in 250 mls @ 3.606 mls/hr IV .Q24H PRN; Protocol PRN Reason: TITRATE PER PROTOCOL Last Admin: 09/02/18 15:52 Dose: 2.5 mcg/kg/min, 3.606 mls/hr Meropenem/Sodium Chloride (Merrem Iv 500 Mg/Ns 50 Ml) 500 mg in 50 mls @ 100 mls/hr IVPB Q12 [facility]; Protocol Stop: 09/03/18 10:29 Last Admin: 09/02/18 21:21 Dose: 100 mls/hr Levalbuterol HCl (Xopenex) 0.63 mg IH [id number] PRN PRN Reason: Shortness of Breath Morphine Sulfate (Morphine) 4 mg IVP Q4H PRN PRN Reason: Pain, moderate (4-7) Last Admin: 09/03/18 00:53 Dose: 4 mg Ondansetron HCl (Zofran Inj) 4 mg IVP Q6 PRN PRN Reason: Nausea/Vomiting Oseltamivir Phosphate (Tamiflu Cap) 30 mg PO BID [facility]; Protocol Last Admin: 09/02/18 15:08 Dose: 30 mg Pantoprazole Sodium (Protonix Inj) 40 mg IVP DAILY [facility] Last Admin: 09/02/18 09:29 Dose: 40 mg - Labs Labs: 09/03/18 05:00 09/03/18 05:00 PT 13.6 SECONDS (9.4-12.5) H 09/01/18 21:00 INR 1.19 09/01/18 21:00 APTT 51.7 Seconds (25.1-36.5) H 09/03/18 05:00 - Additional Findings Additional findings: - Constitutional Appears: Non-toxic, No Acute Distress - Head Exam Head Exam: ATRAUMATIC, NORMOCEPHALIC - Eye Exam Eye Exam: Normal appearance, PERRL - ENT Exam ENT Exam: Mucous Membranes Moist Additional comments: ett in place - Respiratory Exam Respiratory Exam: Rales, NORMAL BREATHING PATTERN. absent: Accessory Muscle Use, Respiratory Distress - Cardiovascular Exam Cardiovascular Exam: Tachycardia, +S1, +S2. absent: Murmur - GI/Abdominal Exam GI & Abdominal Exam: Soft, Normal Bowel Sounds. absent: Distended, Firm, Rigid - Extremities Exam Extremities Exam: Normal Capillary Refill, Pedal Edema Additional comments: +1 pitting edema - Skin Skin Exam: Dry, Intact, Normal Color Assessment and Plan - Assessment and Plan (Free Text) Assessment: 73 year old female with past medical history of unspecified lung cancer with unspecified chemotherapy that she has been receiving since being diagnosed in March 2018, hypertension, COPD, cardiac myxoma, and asthma presents with shortness of breath and chest pain. Plan: Respiratory failure - s/p intubation - COPD exacerbation vs. PE vs. CHF exacerbation - CXR this AM shows unchanged severe vascular congestion - BNP 9330 - Echo in 2014 showed EF of 51.4% with mild TR, followup repeat ECHO - Chest CT unable to be done as patient is unstable - Xopenex PRN - Heme/onc consulted. Recs appreciated. Septic shock - afebrile, leukocytosis likely due to steroids - on vasopressin, levophed, dobutamine drip - Solu-cortef 50 mg IV Q6 - lactate trending down - Doxycycline and Merrem after loading vancomycin dose - procal wnl, BCx neg x2 - ID consulted. Appreciate recs. NSTEMI - EKG: sinus tachycardia with ST depressions in V5 and V6 with heart rate of 141 - troponins 114 - heparin drip - nitroglycerin drip, metoprolol, ACEI held due to septic shock - Cardiology consulted. Recommend conservative management. ARF - creatinine trending down - likely pre-renal due to septic shock GI prophylaxis: protonix 40 mg IV daily DVT prophylaxis: heparin drip Case discussed with Dr. Derik Mcneal PGY-1 <Bear More - Last Filed: 09/03/18 16:18> Objective - Vital Signs/Intake and Output Vital Signs (last 24 hours): Temp Pulse Resp BP Pulse Ox 98.4 F 110 H 20 113/56 L 100 09/03/18 06:00 09/03/18 06:00 09/02/18 04:02 09/03/18 13:54 09/03/18 06:00 Intake and Output: 09/03/18 09/03/18 06:59 18:59 Intake Total 912 Output Total 300 Balance 612 - Medications Medications: Current Medications Hydrocortisone Sodium Succinate (Solu-Cortef) 50 mg IVP Q6 FLIP Last Admin: 09/03/18 13:19 Dose: 50 mg Nitroglycerin/Dextrose (Nitroglycerin 50 Mg/250 Ml D5w) 50 mg in 250 mls @ 1.5 mls/hr IV .Q24H PRN; Protocol PRN Reason: Titrate per protocol Last Admin: 09/01/18 22:31 Dose: mls/hr Propofol (Diprivan) 1,000 mg in 100 mls @ 1.445 mls/hr IV .Q24H PRN; Protocol PRN Reason: TITRATE PER MD ORDER Last Titration: 09/02/18 20:00 Dose: 34.59 mcg/kg/min, 10 mls/hr Heparin Sodium/Sodium Chloride (Heparin 95899 Units/250ml 1/2 Normal Saline) 25,000 units in 250 mls @ 5.77 mls/hr IV .Q24H FLIP; Protocol Last Titration: 09/02/18 22:23 Dose: 18 units/kg/hr, 8.655 mls/hr NOREPINEPHRINE BIT/0.9 % NACL (Levophed 4 Mg/ 250 Ml Ns Premixed) 4 mg in 250 mls @ 15 mls/hr IV .[id number] PRN; Protocol PRN Reason: TITRATE PER MD ORDER Last Admin: 09/02/18 09:53 Dose: 4 mcg/min, 15 mls/hr Vasopressin 20 units/ Sodium (Chloride) 101 mls @ 9.09 mls/hr IV .Q11H7M [facility]; Protocol Last Admin: 09/03/18 13:54 Dose: 9.09 mls/hr Doxycycline Hyclate 100 mg/ (Sodium Chloride) 100 mls @ 100 mls/hr IVPB Q12 FL[facility]; Protocol Last Admin: 09/03/18 11:00 Dose: 100 mls/hr Dobutamine HCl/Dextrose (Dobutamine/Dextrose 5% 500mg/250ml) 500 mg in 250 mls @ 3.606 mls/hr IV .Q24H PRN; Protocol PRN Reason: TITRATE PER PROTOCOL Last Admin: 09/02/18 15:52 Dose: 2.5 mcg/kg/min, 3.606 mls/hr Levalbuterol HCl (Xopenex) 0.63 mg IH [id number] PRN PRN Reason: Shortness of Breath Morphine Sulfate (Morphine) 4 mg IVP Q4H PRN PRN Reason: Pain, moderate (4-7) Last Admin: 09/03/18 00:53 Dose: 4 mg Ondansetron HCl (Zofran Inj) 4 mg IVP Q6 PRN PRN Reason: Nausea/Vomiting Oseltamivir Phosphate (Tamiflu Cap) 30 mg PO BID [facility]; Protocol Last Admin: 09/03/18 13:24 Dose: 30 mg Pantoprazole Sodium (Protonix Inj) 40 mg IVP DAILY [facility] Last Admin: 09/02/18 09:29 Dose: 40 mg - Labs Labs: 09/03/18 05:00 09/03/18 05:00 PT 13.6 SECONDS (9.4-12.5) H 09/01/18 21:00 INR 1.19 09/01/18 21:00 APTT 40.8 Seconds (25.1-36.5) H 09/03/18 11:00 Attending/Attestation - Attestation I have personally seen and examined this patient.: Yes I have fully participated in the care of the patient.: Yes I have reviewed all pertinent clinical information, including history, physical exam and plan: Yes
--- NOTE | 2018-09-03 10:24 | PN ---
DATE: 09/03/2018 SUBJECTIVE: The patient is in bed, remains overall in poor condition. The patient is intubated on a ventilator. The patient is seen earlier this morning. PHYSICAL EXAMINATION: VITAL SIGNS: Temperature is 98 and the highest temperature she had during hospitalization is 99, blood pressure is 93/36, respiratory rate on the vent, heart rate of 113. HEENT: Unremarkable. ET tube is in place. NECK: Supple. LUNGS: Have decreased breath sounds. HEART: Normal S1, S2. ABDOMEN: Soft, nontender. LABORATORY DATA: White count is 16,400, hemoglobin of 8, platelets of 316. Chemistries are BUN of 55, creatinine of 1.4. Troponin is 114. Toxicology is noted. Blood cultures are negative. Random vanco level of 25.6. The patient's review of orders reveals the patient to be on doxycycline, meropenem. The patient was given a dose of vancomycin, also on Solu-Cortef and Tamiflu. Blood cultures are negative and this morning's chest x-ray is pending. Yesterday's chest x-ray is reviewed. Slight improvement in pulmonary edema and the patient's procalcitonin is 0.39. ASSESSMENT AND PLAN: A 73-year-old female with history of lung cancer, chemotherapy and radiation, chronic obstructive lung disease, hypertension, asthma, cardiac myxoma, admitted with shortness of breath and with systemic inflammatory response syndrome secondary to cardiogenic shock, non-ST elevation myocardial infarction and negative blood cultures with acute kidney injury. Currently on meropenem and Tamiflu and doxycycline, normal procalcitonin. We will follow the final culture results and make further recommendations. Sal Jones MD
--- NOTE | 2018-09-03 10:37 | CARD ---
APPROVED REPORT Date of service: 09/02/2018 EXAM: Two-dimensional and M-mode echocardiogram with Doppler and color Doppler. INDICATION Congestive Heart Failure 2D DIMENSIONS Left Atrium (2D)3.7 (1.6-4.0cm)IVSd1.2 (0.7-1.1cm) LVDd4.8 (3.9-5.9cm)PWd0.9 (0.7-1.1cm) LVDs4.1 (2.5-4.0cm)FS (%) 13.7 % LVEF (%)29.3 (>50%) M-Mode DIMENSIONS Aortic Root3.10 (2.2-3.7cm)Aortic Cusp Exc.1.60 (1.5-2.0cm) Aortic Valve AoV Peak Qayzywft00.3cm/Cori Peak GR.3mmHg Mitral Valve MV E Udausbhx48.2cm/sMV A Ibewdrfw71.0cm/sE/A ratio1.3 TDI Lateral E' Peak V7.12cm/sMedial E' Peak V5.17cm/sE/Lateral E'13.9 E/Medial E'19.2 Pulmonary Valve PV Peak Qurvjcxm92.8cm/sPV Peak Grad.1mmHg Tricuspid Valve TR Peak Evszchkn576fy/sRAP [id number] Peak Gr.39mmHg [id number] LEFT VENTRICLE The left ventricle is normal size. LV Septum is Hypertrophied. The systolic function is Moderate to severely impaired.EF-25-% There is moderate to severe hypokinesis in the apical anterior wall. Transmitral Doppler flow pattern is Grade II-pseudonormal filling dynamics. No left ventricle thrombus noted on this study. There is no ventricular septal defect visualized. There is no left ventricular aneurysm. There is no mass noted in the left ventricle. RIGHT VENTRICLE The right ventricle is normal size. There is normal right ventricular wall thickness. The right ventricular systolic function is normal. ATRIA The left atrium size is normal. The right atrium size is normal. The interatrial septum is intact with no evidence for an atrial septal defect. AORTIC VALVE Aortic Valve Leaflets Thickened. Valve Opening Normal. There is trace aortic regurgitation. There is no aortic valvular stenosis. There is no aortic valvular vegetation. MITRAL VALVE The mitral valve is thickened but opens well. Mitral annular calcification is moderate to severe. Mitral regurgitation is mild to moderate. There is no mitral valve stenosis. There is no evidence of mitral valve prolapse. Redundant elongated chordae are noted. TRICUSPID VALVE The tricuspid valve is normal in structure. There is mild to moderate tricuspid regurgitation.RVSP: 49mm Hg. There is mild to moderate pulmonary hypertension. There is no tricuspid valve stenosis. There is no tricuspid valve prolapse or vegetation. PULMONIC VALVE The pulmonary valve is normal in structure. There is mild pulmonic valvular regurgitation. There is no pulmonic valvular stenosis. GREAT VESSELS The aortic root is normal in size. The ascending aorta is normal in size. The pulmonary artery is normal. The IVC is dilated. PERICARDIAL EFFUSION There is no pleural effusion. There is a trace pericardial effusion. <Conclusion> The left ventricle is normal size. The systolic function is Moderate to severely impaired.EF-25-% There is trace aortic regurgitation. Mitral regurgitation is mild to moderate. There is mild to moderate tricuspid regurgitation.RVSP: 49mm Hg. There is mild to moderate pulmonary hypertension. There is mild pulmonic valvular regurgitation. There is a trace pericardial effusion.
[2018-09-03] MEDS: MEROPENEM 500 MG in NS 500 MG/50 ML BAG IVPB SCH (11:00)
--- NOTE | 2018-09-03 12:30 | RAD ---
Date of service: 09/03/2018 HISTORY: Intubated, evaluate pneumonia COMPARISON: 09/02/2018 FINDINGS: LUNGS: No change in perihilar infiltrate most consistent with pulmonary edema. Central lines and tubes are unchanged PLEURA: No significant pleural effusion identified, no pneumothorax apparent. CARDIOVASCULAR: Aortic calcification Normal cardiac size. OSSEOUS STRUCTURES: No significant abnormalities. VISUALIZED UPPER ABDOMEN: Normal. OTHER FINDINGS: None. IMPRESSION: No change in perihilar infiltrate most consistent with pulmonary edema. Central lines and tubes are unchanged
--- NOTE | 2018-09-03 16:03 | PN ---
DATE: 09/03/2018 SUBJECTIVE: The patient is seen lying in bed in the ICU. She is seen in the presence of her son. She remains intubated and sedated. Her peak troponin thus far is 114. She is requiring dobutamine, Levophed and vasopressin for hemodynamic support. MEDICATIONS: Her current medications include the above-mentioned infusions as well as doxycycline, IV heparin, Protonix, Solu-Cortef, Tamiflu, and Xopenex. OBJECTIVE: GENERAL: She is a chronically ill-appearing elderly woman. VITAL SIGNS: Blood pressure is 94/40 with a pulse of 110 and sinus respirations are 16. She is afebrile. HEENT: She is orally intubated. CHEST: Bilateral scattered rhonchi. HEART: PMI displaced laterally with a systolic murmur at the lower left sternal border and apex. ABDOMEN: Soft and bowel sounds are present. EXTREMITIES: No edema. DIAGNOSTIC DATA: An echocardiogram was reviewed. This revealed normal LV size with moderate to severely reduced LV systolic function, [id number] mitral regurgitation as well as gjwn-ar-cmubuvhj tricuspid regurgitation. Potassium 4.7, BUN and creatinine 55 and 1.4, glucose is 200. White count 16.4, hemoglobin and hematocrit 8.1 and 25.9 with platelet count 316,000. Arterial blood gas showed pH 7.31, pCO2 of 32 and pO2 of 146 on 70% FIO2. Morning electrocardiogram is pending. Chest x-ray reveals bilateral increased interstitial markings. IMPRESSION: 1. Acute myocardial infarction complicated by shock and hemodynamic compromise. 2. Respiratory failure. 3. Advanced lung cancer. 4. History of tobacco abuse. 5. Worsened anemia. 6. Renal insufficiency which appears improved. RECOMMENDATIONS: Continued supportive measures are advised. Anticoagulation will continue for now, however monitoring of her CBC and stool guaiac is advised. If she has evidence of GI blood loss, anticoagulant therapy will need to be discontinued. Her overall prognosis remains extremely poor and this was discussed with her son at the bedside. Clarification of her DNR/DNI status has been advised. We will continue to follow and make further recommendations as appropriate. Mark Etienne MD [facility] # [id number]
--- NOTE | 2018-09-03 16:34 | PN ---
DATE: 09/02/2018 SUBJECTIVE: The patient is ventilator dependent at this time with a FiO2 of 70%. She is on dobutamine and propofol. The patient at this time is hemodynamically stable. Note that the patient's family is at the beside. He understands that the patient has stage IV lung CA and is here with myocardial infarction, note that aggressive measures will not be taken. PHYSICAL EXAMINATION: VITAL SIGNS: Temperature is 98.4, pulse is 110, respirations are 18, BP is 93/36 and O2 saturation is 100%. HEENT: Head atraumatic, normocephalic. Eyes reactive to light. Ears, nose and throat seemed to be within normal limits. NECK: Supple. No JVD. No thyroid enlargement or lymph nodes. HEART: Has regular rate and rhythm. Normal S1, S2, but tachycardiac. LUNGS: Reveal mild rhonchi bilaterally. ABDOMEN: Soft. Decreased bowel sounds. GENITALIA: Deferred. RECTAL: Deferred. MUSCULOSKELETAL: No joint deformities. EXTREMITIES: Reveal trace lower extremity edema. NEUROLOGIC: The patient is sedated on the ventilator. LABORATORY DATA: Reveal white count of 16.4, hemoglobin is 8.1, hematocrit of 25.9 with platelets of 316,000. Her arterial blood gas reveals a pH of 7.31, pCO2 of 32, pO2 of 146. Sodium of 140, potassium 4.7, chloride 111, CO2 of 20 with a BUN of 55 and creatinine of 1.4 and a glucose of 200. Note that the patient's last troponin was 114, it has been trending that high since admission. Her chest x-ray reveals that there is pulmonary edema, but it is improving and some small bilateral pleural effusions. IMPRESSION: As far as my impression, this patient presents with myocardial infarction and respiratory failure requiring ventilator support. At present her FIO2 is 70%. The patient has sepsis as well as pulmonary edema and pleural effusions. She has anemia, renal insufficiency and is noted to have stage IV lung cancer. PLAN: As far as our plan, we will continue with propofol as well as the dobutamine and she is on doxycycline as well as meropenem. The patient is getting morphine as necessary. She is Levophed as well as Protonix and Solu- Cortef as well as Tamiflu. The patient is also getting a vasopressin and Xopenex. We will continue to treat aggressively along with the other consultants and the primary care doctor. Diony Gambino MD
[2018-09-03] MEDS: Propofol 10 mg/ml 1,000 MG/100 ML VIAL IV PRN ×2 (18:05→23:00)
[2018-09-03] MEDS: NOREPINEPHRINE BIT/0.9 % NACL 4 MG/250 ML BAG IV PRN (21:50)
[2018-09-04] MEDS: NOREPINEPHRINE BIT/0.9 % NACL 4 MG/250 ML BAG IV PRN (06:19)
[2018-09-04] MEDS: Morphine 4 mg/ml ISec IVP PRN ×4 (06:29→18:51)
[2018-09-04] MEDS: Heparin25000 units/250ml 1/2NS 25,000 UNITS/250 ML BAG IV SCH ×2 (06:34→08:00)
[2018-09-04 06:40] LABS: ALBUMIN 3.2 g/dL (3.0-4.8); CALCIUM 8.9 mg/dL (8.4-10.5); GRAN # 13.29 (1.4-6.5); GRAN % 88.9 % (50.0-68.0); HEMOGLOBIN 8.5 g/dL (12.0-16.0); LYMPH # 0.8 (1.2-3.4); LYMPH % 5.1 % (22.0-35.0); MEAN CELL VOLUME 92.6 fl (80.0-105.0); MEAN CORPUSCULAR HEMOGLOBIN 28.5 pg (25.0-35.0); MEAN CORPUSCULAR HGB CONC 30.8 g/dl (31.0-37.0); MEAN PLATELET VOLUME 10.2 fl (7.0-11.0); MONO # 0.9 (0.1-0.6); RBC 2.98 10^6/uL (3.5-6.1)
--- NOTE | 2018-09-04 07:03 | CP.PCM.PN ---
<McnealBrock L - Last Filed: 09/04/18 12:33> Subjective - Date & Time of Evaluation Date of Evaluation: 09/04/18 Time of Evaluation: 07:03 - Subjective Subjective: Resident Progress Note for Hospitalist Service Patient examined at bedside. No acute events overnight. Patient is still intubated but now off sedation drip and appears to be more alert. She is following commands and moving extremities spontaneously. Prognosis was discussed with family members who were at bedside. Objective - Vital Signs/Intake and Output Vital Signs (last 24 hours): Temp Pulse Resp BP Pulse Ox 98.3 F 99 H 19 131/70 100 09/03/18 20:00 09/04/18 06:00 09/03/18 20:00 09/03/18 22:04 09/03/18 20:00 Intake and Output: 09/04/18 09/04/18 06:59 18:59 Intake Total 350 Balance 350 - Medications Medications: Current Medications Hydrocortisone Sodium Succinate (Solu-Cortef) 50 mg IVP Q6 FLIP Last Admin: 09/04/18 05:00 Dose: 50 mg Nitroglycerin/Dextrose (Nitroglycerin 50 Mg/250 Ml D5w) 50 mg in 250 mls @ 1.5 mls/hr IV .Q24H PRN; Protocol PRN Reason: Titrate per protocol Last Admin: 09/01/18 22:31 Dose: mls/hr Propofol (Diprivan) 1,000 mg in 100 mls @ 1.445 mls/hr IV .Q24H PRN; Protocol PRN Reason: TITRATE PER MD ORDER Last Admin: 09/03/18 23:00 Dose: 34.59 mcg/kg/min, 9.998 mls/hr Heparin Sodium/Sodium Chloride (Heparin 75072 Units/250ml 1/2 Normal Saline) 25,000 units in 250 mls @ 5.77 mls/hr IV .Q24H FLIP; Protocol Last Admin: 09/04/18 06:34 Dose: 18 units/kg/hr, 8.655 mls/hr NOREPINEPHRINE BIT/0.9 % NACL (Levophed 4 Mg/ 250 Ml Ns Premixed) 4 mg in 250 mls @ 15 mls/hr IV .[id number] PRN; Protocol PRN Reason: TITRATE PER MD ORDER Last Admin: 09/04/18 06:19 Dose: 4 mcg/min, 15 mls/hr Vasopressin 20 units/ Sodium (Chloride) 101 mls @ 9.09 mls/hr IV .Q11H7M [facility]; Protocol Last Admin: 09/03/18 22:04 Dose: 9.09 mls/hr Doxycycline Hyclate 100 mg/ (Sodium Chloride) 100 mls @ 100 mls/hr IVPB Q12 [facility]; Protocol Last Admin: 09/03/18 21:49 Dose: 100 mls/hr Dobutamine HCl/Dextrose (Dobutamine/Dextrose 5% 500mg/250ml) 500 mg in 250 mls @ 3.606 mls/hr IV .Q24H PRN; Protocol PRN Reason: TITRATE PER PROTOCOL Last Admin: 09/02/18 15:52 Dose: 2.5 mcg/kg/min, 3.606 mls/hr Levalbuterol HCl (Xopenex) 0.63 mg IH [id number] PRN PRN Reason: Shortness of Breath Morphine Sulfate (Morphine) 4 mg IVP Q4H PRN PRN Reason: Pain, moderate (4-7) Last Admin: 09/04/18 06:29 Dose: 4 mg Ondansetron HCl (Zofran Inj) 4 mg IVP Q6 PRN PRN Reason: Nausea/Vomiting Oseltamivir Phosphate (Tamiflu Cap) 30 mg PO BID [facility]; Protocol Last Admin: 09/03/18 13:24 Dose: 30 mg Pantoprazole Sodium (Protonix Inj) 40 mg IVP DAILY [facility] Last Admin: 09/02/18 09:29 Dose: 40 mg - Labs Labs: 09/04/18 06:00 09/04/18 06:00 PT 13.6 SECONDS (9.4-12.5) H 09/01/18 21:00 INR 1.19 09/01/18 21:00 APTT 47.7 Seconds (25.1-36.5) H 09/04/18 06:00 - Additional Findings Additional findings: - Constitutional Appears: Non-toxic, No Acute Distress - Head Exam Head Exam: ATRAUMATIC, NORMOCEPHALIC - Eye Exam Eye Exam: Normal appearance, PERRL - ENT Exam ENT Exam: Mucous Membranes Moist Additional comments: ett in place - Respiratory Exam Respiratory Exam: Rales, NORMAL BREATHING PATTERN. absent: Accessory Muscle Use, Respiratory Distress - Cardiovascular Exam Cardiovascular Exam: Tachycardia, RRR, +S1, +S2 - GI/Abdominal Exam GI & Abdominal Exam: Soft, Normal Bowel Sounds. absent: Distended, Firm, Rigid - Extremities Exam Extremities Exam: Normal Capillary Refill, Pedal Edema Additional comments: +1 pitting edema - Skin Skin Exam: Dry, Intact, Normal Color Assessment and Plan - Assessment and Plan (Free Text) Assessment: 73 year old female with past medical history of unspecified lung cancer with unspecified chemotherapy that she has been receiving since being diagnosed in March 2018, hypertension, COPD, cardiac myxoma, and asthma presents with shortness of breath and chest pain. Plan: Respiratory failure - s/p intubation - PE vs. CHF exacerbation - CXR this AM shows no significant change in severe vascular congestion - BNP 9330 - Echo in 2014 showed EF of 51.4% with mild TR, followup repeat ECHO - Chest CT unable to be done as patient is unstable - Xopenex PRN - Heme/onc consulted. Recs appreciated. Septic shock - afebrile, leukocytosis likely due to steroids - on vasopressin, levophed, dobutamine drip - Solu-cortef 50 mg IV Q6 - lactate trending down - Doxycycline and Merrem after loading vancomycin dose - procal wnl, BCx neg x2, UA unremarkable - ID consulted. Appreciate recs. NSTEMI - EKG: sinus tachycardia with ST depressions in V5 and V6 with heart rate of 141 - ECHO shows EF 25%, trace AR, mild to moderate TR and pulmonary hypertension, trace pericardial effusion - troponins trending down - heparin drip - nitroglycerin drip, metoprolol, ACEI held due to septic shock - Cardiology consulted. Recommend conservative management. Anemia - Hgb stable - continue to monitor ARF - resolved - likely pre-renal due to septic shock GI prophylaxis: protonix 40 mg IV daily DVT prophylaxis: heparin drip Case discussed with Dr. Bud Mcneal PGY-1 <Zenia Farrell - Last Filed: 09/10/18 11:26> Objective - Vital Signs/Intake and Output Vital Signs (last 24 hours): Temp Pulse Resp BP Pulse Ox 98.4 F 120 H 12 123/68 88 L 09/08/18 08:00 09/09/18 21:23 09/09/18 22:05 09/08/18 08:00 09/09/18 20:00 Intake and Output: 09/10/18 09/10/18 06:59 18:59 Intake Total 20 Balance 20 - Labs Labs: 09/07/18 06:00 09/07/18 06:00 PT 13.6 SECONDS (9.4-12.5) H 09/01/18 21:00 INR 1.19 09/01/18 21:00 APTT 60.2 Seconds (25.1-36.5) H 09/05/18 06:00 Attending/Attestation - Attestation I have personally seen and examined this patient.: Yes I have fully participated in the care of the patient.: Yes I have reviewed all pertinent clinical information, including history, physical exam and plan: Yes Notes (Text): 09/10/18 11:26 Medical record note made by the resident after discussion with my direction and input after the patient was personally seen and examined by me. I have reviewed the chart and agree that the record accurately reflects by personal performance of the history, physical exam, data review, and medical decision-making, in the course for the patient. I have also personally directed the plan of care.
[2018-09-04] MEDS: Propofol 10 mg/ml 1,000 MG/100 ML VIAL IV PRN ×2 (07:41→16:20)
[2018-09-04 10:17] LABS: URINE BILIRUBIN NEGATIVE (NEGATIVE); URINE BLOOD NEGATIVE (NEGATIVE); URINE GLUCOSE (UA) NEGATIVE (NEGATIVE); URINE LEUKOCYTE ESTERASE NEGATIVE Leu/uL (NEGATIVE); URINE PROTEIN 30 mg/dL (<30 mg/dL); URINE UROBILINOGEN 0.2 E.U./dL (<1 E.U./dL)
[2018-09-04 10:30] LABS: URINE APPEARANCE CLEAR (CLEAR); URINE COLOR YELLOW (YELLOW)
--- NOTE | 2018-09-04 10:32 | RAD ---
Date of service: 09/04/2018 HISTORY: INTUBATED COMPARISON: 09/03/2018 FINDINGS: LUNGS: No significant change in pattern of perihilar edema. Central lines and tubes are unchanged PLEURA: No significant pleural effusion identified, no pneumothorax apparent. CARDIOVASCULAR: Minimal aortic calcification Normal cardiac size. No pulmonary vascular congestion. OSSEOUS STRUCTURES: No significant abnormalities. VISUALIZED UPPER ABDOMEN: Normal. OTHER FINDINGS: None. IMPRESSION: No significant change in pattern of perihilar edema. Central lines and tubes are unchanged
[2018-09-04 10:43] LABS: URINE RBC 0 - 2 /hpf (0-2)
[2018-09-04 10:44] LABS: URINE AMORPHOUS SEDIMENT FEW /hpf; URINE BACTERIA MOD /hpf; URINE COARSE GRANULAR CAST TRACE /hpf; URINE HYALINE CAST 0 - 2 /hpf
--- NOTE | 2018-09-04 11:27 | PN ---
DATE: 09/04/2018 SUBJECTIVE: The patient is seen lying in bed in the ICU. She remains intubated. She is sedated but arousable. She is seen in the presence of her daughter. She remains on IV dobutamine 2.5 mcg/kg per minute, Levophed 8 mcg a minute, and vasopressin 0.3 units per minute. Other medications include Diprivan, doxycycline, heparin, Protonix, Solu-Cortef, Tamiflu, and Xopenex. OBJECTIVE: GENERAL: She is a chronically ill-appearing elderly woman. VITAL SIGNS: Blood pressure is 130/70 with a pulse of 120 in sinus, respirations are 16. She is afebrile. HEENT: She is orally intubated. CHEST: Bilateral coarse rhonchi. HEART: PMI displaced laterally, soft tones are noted. Systolic murmur is noted at the lower left sternal border. ABDOMEN: Soft and bowel sounds are present. EXTREMITIES: No edema. DIAGNOSTIC DATA: Morning blood work is pending. IMPRESSION: 1. Acute myocardial infarction, complicated by respiratory failure and shock. 2. Advanced lung cancer. 3. History of tobacco abuse. 4. Renal insufficiency. 5. Worsening anemia. RECOMMENDATIONS: Continued supportive care as advised. Followup CBC is planned. Stool guaiacs are pending. Her overall prognosis remains extremely poor given the complexity of her problems and current condition. This was discussed at length with her daughter at the bedside. Continued comfort care and supportive measures are advised. Mark Etienne MD
--- NOTE | 2018-09-04 12:14 | PN ---
DATE: 09/04/2018 PARAKEET RAISER NOTE SUBJECTIVE: The patient is sedated, on the ventilator with FiO2 of 60% and family is at bedside. The patient is on dobutamine as well as Levophed, propofol, and vasopressin. Hemodynamically, she is stable this morning. PHYSICAL EXAMINATION: VITAL SIGNS: Temperature is 98.3, pulse is 99, BP is 131/70, and respirations are 19. HEENT: Head is atraumatic, normocephalic. Eyes reactive to light. Ear, nose, and throat seemed to be within normal limits. NECK: Supple. No JVD. No thyroid enlargement or lymph nodes. HEART: Has regular rate and rhythm. Normal S1, S2, but tachycardic. LUNGS: Reveal rare rhonchi bilaterally. ABDOMEN: Soft. Decreased bowel sounds during the day. RECTAL: Deferred. MUSCULOSKELETAL: No joint deformities. EXTREMITIES: Reveal positive lower extremity edema. NEUROLOGIC: She is sedated on the ventilator. LABORATORY DATA: As far as her laboratories, her white count is 15.0, hemoglobin is 8.5, hematocrit 27.6 with platelets of 354,000. The patient's sodium is 141, potassium 4.0, chloride 112, CO2 of 22 with a BUN of 57, creatinine of 1.2 and a glucose of 173. IMPRESSION: This patient presented with myocardial infarction and respiratory failure requiring ventilator support. The patient had sepsis as well as pulmonary edema, pleural effusion, anemia, renal insufficiency and stage IV lung carcinoma. PLAN: We will continue with the propofol as well as the dobutamine, Levophed, and vasopressin. The patient is on doxycycline and meropenem as well as morphine p.r.n. She is on Protonix, Solu-Cortef, Tamiflu and Xopenex. We will continue to treat aggressively along with the other consultants and the primary care doctor. Diony Gambino MD
--- NOTE | 2018-09-04 13:40 | PN ---
DATE: 09/04/2018 SUBJECTIVE: The patient is seen earlier today, in 128 bed 2. The patient remains intubated on a ventilator. PHYSICAL EXAMINATION: VITAL SIGNS: Temperature is 98, blood pressure is 116/60, respiratory rate of 22 on the vent, heart rate of 101. HEENT: Unremarkable. LABORATORY DATA: White count of 15,000, hemoglobin is 8, platelets of 354. Chemistries reveals a BUN of 57, creatinine of 1.2. Troponin is elevated at 11. Procalcitonin is 0.39. Urinalysis is noted. Microbiology reveals the blood cultures are negative. The MRSA screen is negative. Review of orders reveals the patient is on doxycycline, Tamiflu, Solu-Cortef. ASSESSMENT AND PLAN: This is a 73-year-old female who was seen earlier this morning in the unit with lung cancer, chemotherapy, radiation, chronic obstructive lung disease, hypertension, asthma, cardiac myxoma, admitted with shortness of breath with systemic inflammatory response syndrome secondary to cardiogenic shock with non-ST elevation myocardial infarction with acute kidney injury with negative cultures, on Tamiflu and doxycycline, normal procalcitonin. The patient was on meropenem. Review of history reveals the patient's meropenem was discontinued. We will follow with you. Overall, prognosis is quite poor Sal Jones MD
[2018-09-05] MEDS: Propofol 10 mg/ml 1,000 MG/100 ML VIAL IV PRN ×3 (00:36→20:32)
[2018-09-05] MEDS: Morphine 4 mg/ml ISec IVP PRN ×4 (02:19→21:37)
[2018-09-05] MEDS: Heparin25000 units/250ml 1/2NS 25,000 UNITS/250 ML BAG IV SCH (06:00)
[2018-09-05 06:37] LABS: GRAN # 6.24 (1.4-6.5); GRAN % 81.5 % (50.0-68.0); HEMOGLOBIN 7.6 g/dL (12.0-16.0); LYMPH # 0.9 (1.2-3.4); LYMPH % 11.5 % (22.0-35.0); MEAN CELL VOLUME 93.2 fl (80.0-105.0); MEAN CORPUSCULAR HEMOGLOBIN 28.7 pg (25.0-35.0); MEAN CORPUSCULAR HGB CONC 30.8 g/dl (31.0-37.0); MEAN PLATELET VOLUME 10.6 fl (7.0-11.0); MONO # 0.5 (0.1-0.6); RBC 2.65 10^6/uL (3.5-6.1); RED CELL DISTRIBUTION WIDTH 16.1 % (11.5-14.5); WHITE BLOOD COUNT 7.7 10^3/uL (4.5-11.0)
--- NOTE | 2018-09-05 07:04 | CP.PCM.PN ---
<ElizabetRenettakevin L - Last Filed: 09/05/18 15:49> Subjective - Date & Time of Evaluation Date of Evaluation: 09/05/18 Time of Evaluation: 07:03 - Subjective Subjective: Resident Progress Note for Hospitalist Service Patient examined at bedside. Propofol, vasopressin, levophed, heparin drips have been discontinued. Patient is alert and awake, however still intubated. Follows commands, able to communicate that she is not in pain. Objective - Vital Signs/Intake and Output Vital Signs (last 24 hours): Temp Pulse Resp BP Pulse Ox 98.3 F 112 H 18 110/56 L 100 09/04/18 20:00 09/05/18 02:00 09/04/18 20:00 09/05/18 00:44 09/04/18 20:00 Intake and Output: 09/05/18 09/05/18 06:59 18:59 Intake Total 350 Balance 350 - Medications Medications: Current Medications Hydrocortisone Sodium Succinate (Solu-Cortef) 50 mg IVP Q6 FLIP Last Admin: 09/05/18 06:24 Dose: 50 mg Nitroglycerin/Dextrose (Nitroglycerin 50 Mg/250 Ml D5w) 50 mg in 250 mls @ 1.5 mls/hr IV .Q24H PRN; Protocol PRN Reason: Titrate per protocol Last Admin: 09/01/18 22:31 Dose: mls/hr Propofol (Diprivan) 1,000 mg in 100 mls @ 1.445 mls/hr IV .Q24H PRN; Protocol PRN Reason: TITRATE PER MD ORDER Last Admin: 09/05/18 00:36 Dose: 34.59 mcg/kg/min, 9.998 mls/hr NOREPINEPHRINE BIT/0.9 % NACL (Levophed 4 Mg/ 250 Ml Ns Premixed) 4 mg in 250 mls @ 15 mls/hr IV .[id number] PRN; Protocol PRN Reason: TITRATE PER MD ORDER Last Titration: 09/04/18 09:55 Dose: 0 mcg/min, 0 mls/hr Vasopressin 20 units/ Sodium (Chloride) 101 mls @ 9.09 mls/hr IV .[id number] FLIP; Protocol Last Admin: 09/05/18 00:44 Dose: 9.09 mls/hr Doxycycline Hyclate 100 mg/ (Sodium Chloride) 100 mls @ 100 mls/hr IVPB Q12 [facility]; Protocol Last Admin: 09/04/18 22:05 Dose: 100 mls/hr Dobutamine HCl/Dextrose (Dobutamine/Dextrose 5% 500mg/250ml) 500 mg in 250 mls @ 3.606 mls/hr IV .Q24H PRN; Protocol PRN Reason: TITRATE PER PROTOCOL Last Admin: 09/02/18 15:52 Dose: 2.5 mcg/kg/min, 3.606 mls/hr Heparin Sodium/Sodium Chloride (Heparin 20648 Units/250ml 1/2 Normal Saline) 25,000 units in 250 mls @ 12.954 mls/hr IV .[id number] [facility]; Protocol Last Admin: 09/05/18 06:00 Dose: 24 units/kg/hr, 12.954 mls/hr Levalbuterol HCl (Xopenex) 0.63 mg IH [id number] PRN PRN Reason: Shortness of Breath Morphine Sulfate (Morphine) 4 mg IVP Q4H PRN PRN Reason: Pain, moderate (4-7) Last Admin: 09/05/18 02:19 Dose: 4 mg Ondansetron HCl (Zofran Inj) 4 mg IVP Q6 PRN PRN Reason: Nausea/Vomiting Oseltamivir Phosphate (Tamiflu Cap) 30 mg PO BID [facility]; Protocol Last Admin: 09/04/18 09:44 Dose: 30 mg Pantoprazole Sodium (Protonix Inj) 40 mg IVP DAILY [facility] Last Admin: 09/04/18 09:43 Dose: 40 mg - Labs Labs: 09/05/18 06:00 09/04/18 06:00 PT 13.6 SECONDS (9.4-12.5) H 09/01/18 21:00 INR 1.19 09/01/18 21:00 APTT 60.2 Seconds (25.1-36.5) H 09/05/18 06:00 - Additional Findings Additional findings: - Constitutional Appears: Non-toxic, No Acute Distress - Head Exam Head Exam: ATRAUMATIC, NORMOCEPHALIC - Eye Exam Eye Exam: Normal appearance, PERRL - ENT Exam ENT Exam: Mucous Membranes Moist Additional comments: ett in place - Respiratory Exam Respiratory Exam: Rales, NORMAL BREATHING PATTERN. absent: Accessory Muscle Use, Respiratory Distress - Cardiovascular Exam Cardiovascular Exam: Tachycardia, RRR, +S1, +S2 - GI/Abdominal Exam GI & Abdominal Exam: Soft, Normal Bowel Sounds. absent: Distended, Firm, Rigid - Extremities Exam Extremities Exam: Normal Capillary Refill, Pedal Edema Additional comments: +1 pitting edema - Skin Skin Exam: Dry, Intact, Normal Color Assessment and Plan - Assessment and Plan (Free Text) Assessment: 73 year old female with past medical history of unspecified lung cancer with unspecified chemotherapy that she has been receiving since being diagnosed in March 2018, hypertension, COPD, cardiac myxoma, and asthma presents with shortness of breath and chest pain. Plan: Respiratory failure - s/p intubation - PE vs. CHF exacerbation - CXR this AM shows improvement in severe vascular congestion - BNP 9330 - Echo in 2014 showed EF of 51.4% with mild TR - Chest CT unable to be done as patient is unstable - Xopenex PRN - Heme/onc consulted. Recs appreciated. Septic shock - afebrile, leukocytosis likely due to steroids - no longer on pressors - Solu-cortef 50 mg IV Q12 - lactate trending down - Doxycycline 100 mg IV Q12, merrem discontinued - procal wnl, BCx neg x2, UA unremarkable - ID consulted. Appreciate recs. NSTEMI - EKG: sinus tachycardia with ST depressions in V5 and V6 with heart rate of 141 - ECHO shows EF 25%, trace AR, mild to moderate TR and pulmonary hypertension, trace pericardial effusion - troponins trending down - heparin drip discontinued - nitroglycerin drip, metoprolol, ACEI held due to septic shock - Cardiology consulted. Recommend conservative management. Anemia - Hgb stable - continue to monitor ARF - resolved - likely pre-renal due to septic shock GI prophylaxis: protonix 40 mg IV daily DVT prophylaxis: heparin 500 units SC Q8H Case discussed with Dr. Bud Mcneal PGY-1 <Zenia Farrell - Last Filed: 09/10/18 11:25> Objective - Vital Signs/Intake and Output Vital Signs (last 24 hours): Temp Pulse Resp BP Pulse Ox 98.4 F 120 H 12 123/68 88 L 09/08/18 08:00 09/09/18 21:23 09/09/18 22:05 09/08/18 08:00 09/09/18 20:00 Intake and Output: 09/10/18 09/10/18 06:59 18:59 Intake Total 20 Balance 20 - Labs Labs: 09/07/18 06:00 09/07/18 06:00 PT 13.6 SECONDS (9.4-12.5) H 09/01/18 21:00 INR 1.19 09/01/18 21:00 APTT 60.2 Seconds (25.1-36.5) H 09/05/18 06:00 Attending/Attestation - Attestation I have personally seen and examined this patient.: Yes I have fully participated in the care of the patient.: Yes I have reviewed all pertinent clinical information, including history, physical exam and plan: Yes Notes (Text): 09/10/18 11:25 Medical record note made by the resident after discussion with my direction and input after the patient was personally seen and examined by me. I have reviewed the chart and agree that the record accurately reflects by personal performance of the history, physical exam, data review, and medical decision-making, in the course for the patient. I have also personally directed the plan of care.
[2018-09-05 07:45] LABS: ALB/GLOB RATIO 0.9 (1.1-1.8); ALBUMIN 2.9 g/dL (3.0-4.8); ALT/SGPT 43 U/L (7-56); AST/SGOT 47 U/L (14-36); BLOOD UREA NITROGEN 51 mg/dL (7-21); CALCIUM 8.9 mg/dL (8.4-10.5); GFR NON-AFRICAN AMERICAN 54
[2018-09-05 08:20] LABS: ARTERIAL BLOOD GAS HCO3 19.9 mmol/L (21-28); ARTERIAL BLOOD GAS HEMOGLOBIN 7.3 g/dL (11.7-17.4); ARTERIAL BLOOD GAS O2 CAPACITY 10.5 mL/dl (16-24); ARTERIAL BLOOD GAS O2 CONTENT 10.5 ML/dl (15-23); ARTERIAL BLOOD GAS O2 SAT 99.8 % (95-98); ARTERIAL BLOOD GAS PCO2 28 mm/Hg (35-45); ARTERIAL BLOOD GAS PH 7.46 (7.35-7.45); ARTERIAL BLOOD GAS TCO2 20.8 mmol.L (22-28)
--- NOTE | 2018-09-05 09:46 | US ---
HISTORY: Leg pain and swelling. Evaluate for DVT PHYSICIAN(S): Ayaz Navraro MD. TECHNIQUE: Duplex sonography and color-flow Doppler with graded compression were used to evaluate the deep venous systems of both lower extremities. FINDINGS: The visualized deep venous systems of both lower extremities are sonographically normal and compressible. Normal wave forms and augmentation are seen. There is no sonographic evidence for deep venous thrombosis in the visualized segments of both lower extremities. IMPRESSION: No sonographic evidence for deep venous thrombosis in the visualized segments of both lower extremities.
--- NOTE | 2018-09-05 10:10 | RAD ---
Date of service: 09/05/2018 HISTORY: intubation COMPARISON: 09/04/2018 FINDINGS: LUNGS: Improved pulmonary edema PLEURA: Minimal effusions CARDIOVASCULAR: Aortic calcification Normal cardiac size. Improved vascular congestion OSSEOUS STRUCTURES: No significant abnormalities. VISUALIZED UPPER ABDOMEN: Normal. OTHER FINDINGS: Central lines and tubes are unchanged IMPRESSION: Improved pulmonary edema
--- NOTE | 2018-09-05 11:08 | PN ---
DATE: 09/05/2018 SUBJECTIVE: The patient is seen lying in bed in the ICU. She remains intubated. She is more awake today and nodding appropriately to questioning. She denies any chest pain. CURRENT MEDICATIONS: Include Diprivan, dopamine at 2.5 mcg/kg/minute, doxycycline, IV heparin, Protonix, Solu-Cortef, Tamiflu, vasopressin 0.03 units per minute. PHYSICAL EXAMINATION GENERAL: She is an elderly woman who appears chronically ill. VITAL SIGNS: Her blood pressure is 110/56 with a pulse of 110 in sinus, respirations are 26. She is afebrile. HEENT: Orally intubated. CHEST: Bilateral scattered rhonchi. HEART: PMI displaced laterally, soft tones are noted. ABDOMEN: Soft with normoactive bowel sounds. EXTREMITIES: 1+ leg edema. DIAGNOSTIC DATA: Potassium is 3.3, BUN and creatinine are 51 and 1.1 Glucose 136, troponin 9.6, hemoglobin and hematocrit is 7.6 and 24.7 with a white count of 7.7, platelet count of 287,000. PTT is 60.2. Arterial blood gas showed pH 7.46, pCO2 of 28 and pO2 of 194 on 60% FiO2 and 10 of PEEP. Stool guaiacs are not reported. IMPRESSION: 1. Recent non-ST segment elevation myocardial infarction complicated by respiratory failure and hemodynamic compromise. 2. Advanced lung cancer. 3. History of tobacco abuse. 4. Worsening anemia. 5. Renal insufficiency. RECOMMENDATION: Consideration should be given to transfusion at this time. If so, IV Lasix should be administered with transfusion, stool guaiacs will be ordered again given her worsening anemia, I will discontinue her heparin given her tachycardia, dobutamine would be withheld as well. Gradual ventilatory weaning as tolerated as recommended. Her overall prognosis remains poor and supportive care is advised. Her current situation was discussed with her niece at the bedside. We will follow along as needed. Mark Etienne MD
--- NOTE | 2018-09-05 11:36 | CP.CCUPN ---
<BretWilver - Last Filed: 09/05/18 10:56> CCU Subjective - Physician Review Subjective (Free Text): Wil[facility] Resident- Progress Note on Behalf of Critical Care Team Subjective: Patient seen and examined at bedside. No acute events overnight. Patient is awake, alert, responds to verbal stimuli. Does not answer questions appropriately. Further subjective data cannot be ascertained at this time. 12 point ROS cannot be ascertained Physical Examination: - Constitutional Appears: no acute distress - Head Exam Head Exam: ATRAUMATIC, NORMAL INSPECTION, NORMOCEPHALIC - Eye Exam Eye Exam: PERRL - ENT Exam ENT Exam: Mucous Membranes Moist - Respiratory Exam Respiratory Exam: no rhonchi, no rales - Cardiovascular Exam Cardiovascular Exam: Tachycardia, REGULAR RHYTHM - GI/Abdominal Exam GI & Abdominal Exam: Normal Bowel Sounds, Soft. absent: Tenderness - Extremities Exam Extremities exam: Positive for: full ROM - Neurological Exam Neurological exam: awake, alert, responds to verbal stimuli - Skin Skin Exam: Dry, Intact Assessment and Plan: Patient is a 73 year old female with past medical history of lung cancer, hypertension, COPD, cardiac myxoma, and asthma who was admitted for evaluation and treatment of shortness of breath and chest pain. Developed hypoxemic respiratory failure. Intubated for airway protection. Patient was transferred to the ICU for further management. Neurology - off of propofol- will restart propofol if patient develops resp. distress during weaning trial - sedation vacation daily Pulm: Hypoxemic Respiratory Failure - 2/2 to Obstructive Pneumonia vs. COPD exacerbation vs. Pulmonary Embolism - 09/01/2018 Chest X ray vascular and interstitial congestion - 09/02/2018- Chest CT without contrast cancelled as patient is too unstable at this time - 09/05/2018- Chest Xray- Improved pulmonary edema - attempt weaning trial today, if failed continue vent setting PRVC TV: 350, RR: 15, FiO2: 40%, PEEP: 10 - hydrocortisone changed to 50mg q12 - xopenex PRN for shortness of breath - weaning and sedation trial daily - head of bed 30 degrees - continue low to intermediate tidal volumes, protective oral hygiene, conservative fluid management Cardiology NSTEMI, CHF Exacerbation - EKG on admission: sinus tachycardia HR [address] depressions in V5 and V6 - Echo in 2014 showed EF of 51.4% with mild TR - 09/12/18 Echocardiogram- LVEF 29.3% - heparin drip discontinued - start aspirin 81mg PO daily - start plavix 75mg PO daily - recommend starting beta william and ROMY inhibitor with holding parameters - Measure daily weight - Strict I and Os - cardiology consulted (Dr. Hammonds)- appreciate recommendations History of hypertension - Patient currently not hypertensive - recommend starting beta william and ROMY inhibitor with holding parameters - cardiology consulted (Dr. Hammonds)- appreciate recommendations Renal ISAEL - likely pre-renal secondary to sepsis - monitor closely via CMP Hypokalemia - 3.3 today - repleted with KCl 20meq IV x 2 - monitor closely via CMP GI GI prophylaxis - protonix 40 mg daily Infectious Disease Severe Sepsis vs. Septic Shock, Pneumonia - HCAP vs CAP - blood culture negative x 2 - continue doxycycline, recommend restarting meropenem - continue tamiflu - infectious disease consulted (Dr. Jones)- appreciate recommendations Heme/Onc Stage IV Lung Cancer - patient is s/p chemotherapy - heme/onc consulted (Dr. Matson)- appreciate recommendations Anemia - downtrending 7.6 from 8.5 - normocytic - monitor closely via AM CBC DVT prophylaxis - heparin drip Patient seen, case discussed with, and plan approved by attending physician Dr. Robles. CCU Objective - Vital Signs / Intake & Output Intake and Output (Last 8hrs): Intake & Output 09/04/18 09/05/18 09/05/18 22:59 06:59 14:59 Intake Total 702 822 Output Total 450 250 Balance 252 572 Intake: IV 622 822 Levophed 40 Right Forearm 100 Right Internal Jugular 372 Vasopressin 108 heparin 154 propofol 120 Oral 80 Output: Urine 450 250 Urethral (Reyes) 450 250 Other: # Bowel Movements 1 - Physical Exam Head: Positive for: Atraumatic, Normocephalic Pupils: Positive for: PERRL Extroacular Muscles: Positive for: EOMI Conjunctiva: Positive for: Normal Mouth: Positive for: Moist Mucous Membranes Neck: Positive for: Normal Range of Motion Respiratory/Chest: Positive for: Decreased Breath Sounds, Rhonchi (Rhonchi bilaterally), Tachypneic Cardiovascular: Positive for: Normal S1, S2, Tachycardic. Negative for: Murmurs Abdomen: Negative for: Tenderness, Distention, Peritoneal Signs Upper Extremity: Positive for: Normal Inspection. Negative for: Cyanosis, Edema Lower Extremity: Positive for: Normal Inspection. Negative for: Edema Neurological: Positive for: GCS=15, CN II-XII Intact Skin: Positive for: Warm, Dry, Normal Color. Negative for: Rashes Psychiatric: Positive for: Alert, Oriented x 3 - Medications Active Medications: Active Medications Generic Name Dose Route Start Last Admin Trade Name Freq PRN Reason Stop Dose Admin Heparin Sodium (Porcine) 5,000 units 09/05/18 14:00 Heparin SC Q8 FLIP Protocol Hydrocortisone Sodium Succinate 50 mg 09/05/18 22:00 Solu-Cortef IVP Q12 FLIP Propofol 1,000 mg in 100 mls @ 1.445 mls/hr 09/02/18 05:21 09/05/18 06:57 Diprivan IV 34.59 mcg/kg/min .Q24H PRN 9.998 mls/hr TITRATE PER MD ORDER Administration Protocol 5 MCG/KG/MIN NOREPINEPHRINE BIT/0.9 % NACL 4 mg in 250 mls @ 15 mls/hr 09/02/18 09:06 09/04/18 09:55 Levophed 4 Mg/ 250 Ml Ns Premixed IV 0 mcg/min .[id number] PRN 0 mls/hr TITRATE PER MD ORDER Titration Protocol 4 MCG/MIN Vasopressin 20 units/ Sodium 101 mls @ 9.09 mls/hr 09/02/18 09:45 09/05/18 00:44 Chloride IV 9.09 mls/hr .[id number] FLIP Administration Protocol 0.03 U/MIN Doxycycline Hyclate 100 mg/ 100 mls @ 100 mls/hr 09/02/18 10:15 09/05/18 09:22 Sodium Chloride IVPB 100 mls/hr Q12 FLIP Administration Protocol Potassium Chloride 20 meq in 100 mls @ 50 mls/hr 09/05/18 08:00 09/05/18 10:35 Potassium Chloride 20 Meq/100 Ml IVPB 09/05/18 11:59 50 mls/hr Q2H FLIP Administration Levalbuterol HCl 0.63 mg 09/01/18 23:33 Xopenex IH [id number] PRN Shortness of Breath Morphine Sulfate 4 mg 09/02/18 20:20 09/05/18 09:31 Morphine IVP 4 mg Q4H PRN Administration Pain, moderate (4-7) Ondansetron HCl 4 mg 09/02/18 01:17 Zofran Inj IVP Q6 PRN Nausea/Vomiting Pantoprazole Sodium 40 mg 09/02/18 10:00 09/05/18 09:23 Protonix Inj IVP 40 mg DAILY FLIP Administration - Patient Studies Lab Studies: Microbiology Studies 09/01/18 21:30 Blood Culture - Preliminary Blood NO GROWTH AFTER 3 DAYS 09/01/18 21:10 Blood Culture - Preliminary Blood NO GROWTH AFTER 3 DAYS Lab Studies 09/05/18 09/05/18 09/05/18 Range/Units 08:15 06:00 06:00 WBC (4.5-11.0) 10^3/uL RBC (3.5-6.1) 10^6/uL Hgb (12.0-16.0) g/dL Hct (36.0-48.0) % MCV (80.0-105.0) fl MCH (25.0-35.0) pg MCHC (31.0-37.0) g/dl RDW (11.5-14.5) % Plt Count (120.0-450.0) 10^3/uL MPV (7.0-11.0) fl Gran % (50.0-68.0) % Lymph % (Auto) (22.0-35.0) % [place] % (Auto) (1.0-6.0) % Eos % (Auto) (1.5-5.0) % Baso % (Auto) (0.0-3.0) % Gran # (1.4-6.5) Lymph # (Auto) (1.2-3.4) [place] # (Auto) (0.1-0.6) Eos # (Auto) (0.0-0.7) Baso # (Auto) (0.0-2.0) K/mm3 APTT 60.2 H (25.1-36.5) Seconds pCO2 28 L (35-45) mm/Hg pO2 194.0 H (80-100) mm/Hg HCO3 19.9 L (21-28) mmol/L ABG pH 7.46 H (7.35-7.45) ABG Total CO2 20.8 L (22-28) mmol.L ABG O2 Saturation 99.8 H (95-98) % ABG O2 Content 10.5 L (15-23) ML/dl ABG Base Excess -3.4 L (-2.0-3.0) mmol/L ABG Hemoglobin 7.3 L (11.7-17.4) g/dL ABG Carboxyhemoglobin 1.6 H (0.5-1.5) % POC ABG HHb (Measured) 0.2 (0-5) % ABG Methemoglobin 1.2 (0.0-3.0) % ABG O2 Capacity 10.5 L (16-24) mL/dl Hgb O2 Saturation 97.1 (95.0-98.0) % FiO2 60.0 % Sodium 144 (132-148) mmol/L Potassium 3.3 L (3.6-5.0) mmol/L Chloride 115 H (98-107) mmol/L Carbon Dioxide 24 (21-33) mmol/L Anion Gap 8 L (10-20) BUN 51 H (7-21) mg/dL Creatinine 1.0 (0.7-1.2) mg/dl Est GFR ( Amer) > 60 Est GFR (Non-Af Amer) 54 Random Glucose 136 H (70-110) mg/dL Calcium 8.9 (8.4-10.5) mg/dL Phosphorus 2.8 (2.5-4.5) mg/dL Magnesium 2.1 (1.7-2.2) mg/dL Total Bilirubin 0.5 (0.2-1.3) mg/dL AST 47 H D (14-36) U/L ALT 43 (7-56) U/L Alkaline Phosphatase 52 (38-126) U/L Troponin I 9.60 H* ng/mL Total Protein 6.2 (5.8-8.3) g/dL Albumin 2.9 L (3.0-4.8) g/dL Globulin 3.2 gm/dL Albumin/Globulin Ratio 0.9 L (1.1-1.8) 09/05/18 09/04/18 09/04/18 Range/Units 06:00 21:07 13:50 WBC 7.7 D (4.5-11.0) 10^3/uL RBC 2.65 L (3.5-6.1) 10^6/uL Hgb 7.6 L (12.0-16.0) g/dL Hct 24.7 L (36.0-48.0) % MCV 93.2 (80.0-105.0) fl MCH 28.7 (25.0-35.0) pg MCHC 30.8 L (31.0-37.0) g/dl RDW 16.1 H (11.5-14.5) % Plt Count 287 (120.0-450.0) 10^3/uL MPV 10.6 (7.0-11.0) fl Gran % 81.5 H (50.0-68.0) % Lymph % (Auto) 11.5 L (22.0-35.0) % [place] % (Auto) 7.0 H (1.0-6.0) % Eos % (Auto) 0.0 L (1.5-5.0) % Baso % (Auto) 0.0 (0.0-3.0) % Gran # 6.24 (1.4-6.5) Lymph # (Auto) 0.9 L (1.2-3.4) [place] # (Auto) 0.5 (0.1-0.6) Eos # (Auto) 0.0 (0.0-0.7) Baso # (Auto) 0.00 (0.0-2.0) K/mm3 APTT 64.8 H 74.4 H (25.1-36.5) Seconds pCO2 (35-45) mm/Hg pO2 (80-100) mm/Hg HCO3 (21-28) mmol/L ABG pH (7.35-7.45) ABG Total CO2 (22-28) mmol.L ABG O2 Saturation (95-98) % ABG O2 Content (15-23) ML/dl ABG Base Excess (-2.0-3.0) mmol/L ABG Hemoglobin (11.7-17.4) g/dL ABG Carboxyhemoglobin (0.5-1.5) % POC ABG HHb (Measured) (0-5) % ABG Methemoglobin (0.0-3.0) % ABG O2 Capacity (16-24) mL/dl Hgb O2 Saturation (95.0-98.0) % FiO2 % Sodium (132-148) mmol/L Potassium (3.6-5.0) mmol/L Chloride (98-107) mmol/L Carbon Dioxide (21-33) mmol/L Anion Gap (10-20) BUN (7-21) mg/dL Creatinine (0.7-1.2) mg/dl Est GFR ( Amer) Est GFR (Non-Af Amer) Random Glucose (70-110) mg/dL Calcium (8.4-10.5) mg/dL Phosphorus (2.5-4.5) mg/dL Magnesium (1.7-2.2) mg/dL Total Bilirubin (0.2-1.3) mg/dL AST (14-36) U/L ALT (7-56) U/L Alkaline Phosphatase (38-126) U/L Troponin I ng/mL Total Protein (5.8-8.3) g/dL Albumin (3.0-4.8) g/dL Globulin gm/dL Albumin/Globulin Ratio (1.1-1.8) Laboratory Results - last 24 hr 09/04/18 09/04/18 09/05/18 13:50 21:07 06:00 WBC 7.7 D RBC 2.65 L Hgb 7.6 L Hct 24.7 L MCV 93.2 MCH 28.7 MCHC 30.8 L RDW 16.1 H Plt Count 287 MPV 10.6 Gran % 81.5 H Lymph % (Auto) 11.5 L [place] % (Auto) 7.0 H Eos % (Auto) 0.0 L Baso % (Auto) 0.0 Gran # 6.24 Lymph # (Auto) 0.9 L [place] # (Auto) 0.5 Eos # (Auto) 0.0 Baso # (Auto) 0.00 APTT 74.4 H 64.8 H pCO2 pO2 HCO3 ABG pH ABG Total CO2 ABG O2 Saturation ABG O2 Content ABG Base Excess ABG Hemoglobin ABG Carboxyhemoglobin POC ABG HHb (Measured) ABG Methemoglobin ABG O2 Capacity Hgb O2 Saturation FiO2 Sodium Potassium Chloride Carbon Dioxide Anion Gap BUN Creatinine Est GFR ( Amer) Est GFR (Non-Af Amer) Random Glucose Calcium Phosphorus Magnesium Total Bilirubin AST ALT Alkaline Phosphatase Troponin I Total Protein Albumin Globulin Albumin/Globulin Ratio 01/07/19 01/07/19 01/07/19 06:00 06:00 08:15 WBC RBC Hgb Hct MCV MCH MCHC RDW Plt Count MPV Gran % Lymph % (Auto) [place] % (Auto) Eos % (Auto) Baso % (Auto) Gran # Lymph # (Auto) [place] # (Auto) Eos # (Auto) Baso # (Auto) APTT 60.2 H pCO2 28 L pO2 194.0 H HCO3 19.9 L ABG pH 7.46 H ABG Total CO2 20.8 L ABG O2 Saturation 99.8 H ABG O2 Content 10.5 L ABG Base Excess -3.4 L ABG Hemoglobin 7.3 L ABG Carboxyhemoglobin 1.6 H POC ABG HHb (Measured) 0.2 ABG Methemoglobin 1.2 ABG O2 Capacity 10.5 L Hgb O2 Saturation 97.1 FiO2 60.0 Sodium 144 Potassium 3.3 L Chloride 115 H Carbon Dioxide 24 Anion Gap 8 L BUN 51 H Creatinine 1.0 Est GFR ( Amer) > 60 Est GFR (Non-Af Amer) 54 Random Glucose 136 H Calcium 8.9 Phosphorus 2.8 Magnesium 2.1 Total Bilirubin 0.5 AST 47 H D ALT 43 Alkaline Phosphatase 52 Troponin I 9.60 H* Total Protein 6.2 Albumin 2.9 L Globulin 3.2 Albumin/Globulin Ratio 0.9 L Radiology Impressions: Radiology Impressions Extremity Ultrasound 09/04/18 08:35 IMPRESSION: No sonographic evidence for deep venous thrombosis in the visualized segments of both lower extremities. Chest X-Ray 09/05/18 07:47 IMPRESSION: Improved pulmonary edema Critical Care Progress Note - Nutrition Nutrition: Nutrition Category Date Time Status NPO Diet [DIET] Diets 09/02/18 Breakfast Ordered <Estuardo Robles - Last Filed: 09/05/18 15:01> CCU Objective - Vital Signs / Intake & Output Vital Signs (Last 4 hours): Vital Signs Temp Pulse Resp BP Pulse Ox 09/05/18 13:00 103/66 09/05/18 12:59 113 H 27 H 100 09/05/18 12:00 98.3 F 107 H 30 H 94/59 L 100 09/05/18 11:59 112 H 18 100 09/05/18 11:16 104/58 L 09/05/18 11:15 142 H 33 H 97 09/05/18 11:00 111/66 Intake and Output (Last 8hrs): Intake & Output 09/04/18 09/05/18 09/05/18 22:59 06:59 14:59 Intake Total 702 822 80 Output Total 450 250 Balance 252 572 80 Intake: IV 622 822 80 Levophed 40 Right Forearm 100 Right Internal Jugular 372 Vasopressin 108 heparin 154 propofol 120 Oral 80 Output: Urine 450 250 Urethral (Reyes) 450 250 Other: # Bowel Movements 1 - Medications Active Medications: Active Medications Generic Name Dose Route Start Last Admin Trade Name Freq PRN Reason Stop Dose Admin Aspirin 81 mg 09/05/18 11:15 09/05/18 12:15 Aspirin Chewable NG 81 mg DAILY FLIP Administration Clopidogrel Bisulfate 75 mg 09/05/18 11:15 09/05/18 12:15 Plavix NG 75 mg DAILY FLIP Administration Heparin Sodium (Porcine) 5,000 units 09/05/18 14:00 Heparin SC Q8 FLIP Protocol Hydrocortisone Sodium Succinate 50 mg 09/05/18 22:00 Solu-Cortef IVP Q12 FLIP Propofol 1,000 mg in 100 mls @ 1.445 mls/hr 09/02/18 05:21 09/05/18 11:30 Diprivan IV 20 mcg/kg/min .Q24H PRN 5.781 mls/hr TITRATE PER MD ORDER Titration Protocol 5 MCG/KG/MIN NOREPINEPHRINE BIT/0.9 % NACL 4 mg in 250 mls @ 15 mls/hr 09/02/18 09:06 09/04/18 09:55 Levophed 4 Mg/ 250 Ml Ns Premixed IV 0 mcg/min .[id number] PRN 0 mls/hr TITRATE PER MD ORDER Titration Protocol 4 MCG/MIN Vasopressin 20 units/ Sodium 101 mls @ 9.09 mls/hr 09/02/18 09:45 09/05/18 00:44 Chloride IV 9.09 mls/hr .[id number] FLIP Administration Protocol 0.03 U/MIN Doxycycline Hyclate 100 mg/ 100 mls @ 100 mls/hr 09/02/18 10:15 09/05/18 09:22 Sodium Chloride IVPB 100 mls/hr Q12 FLIP Administration Protocol Levalbuterol HCl 0.63 mg 09/01/18 23:33 Xopenex IH [id number] PRN Shortness of Breath Morphine Sulfate 4 mg 09/02/18 20:20 09/05/18 09:31 Morphine IVP 4 mg Q4H PRN Administration Pain, moderate (4-7) Ondansetron HCl 4 mg 09/02/18 01:17 Zofran Inj IVP Q6 PRN Nausea/Vomiting Pantoprazole Sodium 40 mg 09/02/18 10:00 09/05/18 09:23 Protonix Inj IVP 40 mg DAILY FLIP Administration - Patient Studies Lab Studies: Microbiology Studies 09/01/18 21:30 Blood Culture - Preliminary Blood NO GROWTH AFTER 3 DAYS 09/01/18 21:10 Blood Culture - Preliminary Blood NO GROWTH AFTER 3 DAYS Lab Studies 09/05/18 09/05/18 09/05/18 Range/Units 08:15 06:00 06:00 WBC (4.5-11.0) 10^3/uL RBC (3.5-6.1) 10^6/uL Hgb (12.0-16.0) g/dL Hct (36.0-48.0) % MCV (80.0-105.0) fl MCH (25.0-35.0) pg MCHC (31.0-37.0) g/dl RDW (11.5-14.5) % Plt Count (120.0-450.0) 10^3/uL MPV (7.0-11.0) fl Gran % (50.0-68.0) % Lymph % (Auto) (22.0-35.0) % [place] % (Auto) (1.0-6.0) % Eos % (Auto) (1.5-5.0) % Baso % (Auto) (0.0-3.0) % Gran # (1.4-6.5) Lymph # (Auto) (1.2-3.4) [place] # (Auto) (0.1-0.6) Eos # (Auto) (0.0-0.7) Baso # (Auto) (0.0-2.0) K/mm3 APTT 60.2 H (25.1-36.5) Seconds pCO2 28 L (35-45) mm/Hg pO2 194.0 H (80-100) mm/Hg HCO3 19.9 L (21-28) mmol/L ABG pH 7.46 H (7.35-7.45) ABG Total CO2 20.8 L (22-28) mmol.L ABG O2 Saturation 99.8 H (95-98) % ABG O2 Content 10.5 L (15-23) ML/dl ABG Base Excess -3.4 L (-2.0-3.0) mmol/L ABG Hemoglobin 7.3 L (11.7-17.4) g/dL ABG Carboxyhemoglobin 1.6 H (0.5-1.5) % POC ABG HHb (Measured) 0.2 (0-5) % ABG Methemoglobin 1.2 (0.0-3.0) % ABG O2 Capacity 10.5 L (16-24) mL/dl Hgb O2 Saturation 97.1 (95.0-98.0) % FiO2 60.0 % Sodium 144 (132-148) mmol/L Potassium 3.3 L (3.6-5.0) mmol/L Chloride 115 H (98-107) mmol/L Carbon Dioxide 24 (21-33) mmol/L Anion Gap 8 L (10-20) BUN 51 H (7-21) mg/dL Creatinine 1.0 (0.7-1.2) mg/dl Est GFR ( Amer) > 60 Est GFR (Non-Af Amer) 54 Random Glucose 136 H (70-110) mg/dL Calcium 8.9 (8.4-10.5) mg/dL Phosphorus 2.8 (2.5-4.5) mg/dL Magnesium 2.1 (1.7-2.2) mg/dL Total Bilirubin 0.5 (0.2-1.3) mg/dL AST 47 H D (14-36) U/L ALT 43 (7-56) U/L Alkaline Phosphatase 52 (38-126) U/L Troponin I 9.60 H* ng/mL Total Protein 6.2 (5.8-8.3) g/dL Albumin 2.9 L (3.0-4.8) g/dL Globulin 3.2 gm/dL Albumin/Globulin Ratio 0.9 L (1.1-1.8) 09/05/18 09/04/18 Range/Units 06:00 21:07 WBC 7.7 D (4.5-11.0) 10^3/uL RBC 2.65 L (3.5-6.1) 10^6/uL Hgb 7.6 L (12.0-16.0) g/dL Hct 24.7 L (36.0-48.0) % MCV 93.2 (80.0-105.0) fl MCH 28.7 (25.0-35.0) pg MCHC 30.8 L (31.0-37.0) g/dl RDW 16.1 H (11.5-14.5) % Plt Count 287 (120.0-450.0) 10^3/uL MPV 10.6 (7.0-11.0) fl Gran % 81.5 H (50.0-68.0) % Lymph % (Auto) 11.5 L (22.0-35.0) % [place] % (Auto) 7.0 H (1.0-6.0) % Eos % (Auto) 0.0 L (1.5-5.0) % Baso % (Auto) 0.0 (0.0-3.0) % Gran # 6.24 (1.4-6.5) Lymph # (Auto) 0.9 L (1.2-3.4) [place] # (Auto) 0.5 (0.1-0.6) Eos # (Auto) 0.0 (0.0-0.7) Baso # (Auto) 0.00 (0.0-2.0) K/mm3 APTT 64.8 H (25.1-36.5) Seconds pCO2 (35-45) mm/Hg pO2 (80-100) mm/Hg HCO3 (21-28) mmol/L ABG pH (7.35-7.45) ABG Total CO2 (22-28) mmol.L ABG O2 Saturation (95-98) % ABG O2 Content (15-23) ML/dl ABG Base Excess (-2.0-3.0) mmol/L ABG Hemoglobin (11.7-17.4) g/dL ABG Carboxyhemoglobin (0.5-1.5) % POC ABG HHb (Measured) (0-5) % ABG Methemoglobin (0.0-3.0) % ABG O2 Capacity (16-24) mL/dl Hgb O2 Saturation (95.0-98.0) % FiO2 % Sodium (132-148) mmol/L Potassium (3.6-5.0) mmol/L Chloride (98-107) mmol/L Carbon Dioxide (21-33) mmol/L Anion Gap (10-20) BUN (7-21) mg/dL Creatinine (0.7-1.2) mg/dl Est GFR ( Amer) Est GFR (Non-Af Amer) Random Glucose (70-110) mg/dL Calcium (8.4-10.5) mg/dL Phosphorus (2.5-4.5) mg/dL Magnesium (1.7-2.2) mg/dL Total Bilirubin (0.2-1.3) mg/dL AST (14-36) U/L ALT (7-56) U/L Alkaline Phosphatase (38-126) U/L Troponin I ng/mL Total Protein (5.8-8.3) g/dL Albumin (3.0-4.8) g/dL Globulin gm/dL Albumin/Globulin Ratio (1.1-1.8) Laboratory Results - last 24 hr 09/04/18 09/05/18 09/05/18 21:07 06:00 06:00 WBC 7.7 D RBC 2.65 L Hgb 7.6 L Hct 24.7 L MCV 93.2 MCH 28.7 MCHC 30.8 L RDW 16.1 H Plt Count 287 MPV 10.6 Gran % 81.5 H Lymph % (Auto) 11.5 L [place] % (Auto) 7.0 H Eos % (Auto) 0.0 L Baso % (Auto) 0.0 Gran # 6.24 Lymph # (Auto) 0.9 L [place] # (Auto) 0.5 Eos # (Auto) 0.0 Baso # (Auto) 0.00 APTT 64.8 H pCO2 pO2 HCO3 ABG pH ABG Total CO2 ABG O2 Saturation ABG O2 Content ABG Base Excess ABG Hemoglobin ABG Carboxyhemoglobin POC ABG HHb (Measured) ABG Methemoglobin ABG O2 Capacity Hgb O2 Saturation FiO2 Sodium 144 Potassium 3.3 L Chloride 115 H Carbon Dioxide 24 Anion Gap 8 L BUN 51 H Creatinine 1.0 Est GFR ( Amer) > 60 Est GFR (Non-Af Amer) 54 Random Glucose 136 H Calcium 8.9 Phosphorus 2.8 Magnesium 2.1 Total Bilirubin 0.5 AST 47 H D ALT 43 Alkaline Phosphatase 52 Troponin I 9.60 H* Total Protein 6.2 Albumin 2.9 L Globulin 3.2 Albumin/Globulin Ratio 0.9 L 09/05/18 09/05/18 06:00 08:15 WBC RBC Hgb Hct MCV MCH MCHC RDW Plt Count MPV Gran % Lymph % (Auto) [place] % (Auto) Eos % (Auto) Baso % (Auto) Gran # Lymph # (Auto) [place] # (Auto) Eos # (Auto) Baso # (Auto) APTT 60.2 H pCO2 28 L pO2 194.0 H HCO3 19.9 L ABG pH 7.46 H ABG Total CO2 20.8 L ABG O2 Saturation 99.8 H ABG O2 Content 10.5 L ABG Base Excess -3.4 L ABG Hemoglobin 7.3 L ABG Carboxyhemoglobin 1.6 H POC ABG HHb (Measured) 0.2 ABG Methemoglobin 1.2 ABG O2 Capacity 10.5 L Hgb O2 Saturation 97.1 FiO2 60.0 Sodium Potassium Chloride Carbon Dioxide Anion Gap BUN Creatinine Est GFR ( Amer) Est GFR (Non-Af Amer) Random Glucose Calcium Phosphorus Magnesium Total Bilirubin AST ALT Alkaline Phosphatase Troponin I Total Protein Albumin Globulin Albumin/Globulin Ratio Radiology Impressions: Radiology Impressions Extremity Ultrasound 09/04/18 08:35 IMPRESSION: No sonographic evidence for deep venous thrombosis in the visualized segments of both lower extremities. Chest X-Ray 09/05/18 07:47 IMPRESSION: Improved pulmonary edema Critical Care Progress Note - Nutrition Nutrition: Nutrition Category Date Time Status NPO Diet [DIET] Diets 09/02/18 Breakfast Ordered Assessment/Plan - Assessment and Plan (Free Text) Assessment: Patient seen and examined on rounds, agree with note with following additions/exceptions: Patient is 73yo female with PMHx of lung cancer with Stage IV, hypertension, 100pk year smoking hx, COPD, cardiac myxoma, admitted for hypoxic resp failure, PNA, ARDS, and NSTEMI Patient currently intubated off sedation, on PRVC PEEP 10, FiO2 40%, OFF Vasopressor support steroid tapered CXR with pulm opacities, ARDS vs Volume overload, improved ID consulted Cardiology consulted Pt was previously DNI, reversed by daughter prior to intubation This morning patient awake, alert following commands, placed on CPAP trial, failed (HR 140s, RR 30s) ARDS PNA Respiratory failure, hypoxic Lung Ca Stage IV COPD HTN Hx Smoking NSTEMI Renal Failure Recommend: - cont with vent support, low tidal vol ventilation, high PEEP, daily sedation vacation, daily CXRs - Abx as per ID, Vanco, Zosyn, Doxy, Tamiflu - rule out FLU - taper steroids - follow up cultures - cont with Dobutamine - repeat ECHO - DC Heparin drip, - cont with ASA, Statin - GI ppx - DVT ppx - Palliative care follow up - Monitor in MICU Extremely poor prognosis Critical care time 35 minutes
--- NOTE | 2018-09-05 17:38 | CP.PCM.PN ---
Subjective - Date & Time of Evaluation Date of Evaluation: 09/05/18 Time of Evaluation: 10:00 - Subjective Subjective: Alert, intubated, weaning trial in progress Objective - Vital Signs/Intake and Output Vital Signs (last 24 hours): Temp Pulse Resp BP Pulse Ox 98.3 F 88 27 H 103/66 100 09/05/18 12:00 09/05/18 17:12 09/05/18 12:59 09/05/18 13:00 09/05/18 12:59 Intake and Output: 09/05/18 09/05/18 06:59 18:59 Intake Total 822 60 Output Total 250 Balance 572 60 - Medications Medications: Current Medications Aspirin (Aspirin Chewable) 81 mg NG DAILY FLIP Last Admin: 09/05/18 12:15 Dose: 81 mg Clopidogrel Bisulfate (Plavix) 75 mg NG DAILY FLIP Last Admin: 09/05/18 12:15 Dose: 75 mg Heparin Sodium (Porcine) (Heparin) 5,000 units SC Q8 FLIP; Protocol Last Admin: 09/05/18 15:00 Dose: Not Given Hydrocortisone Sodium Succinate (Solu-Cortef) 50 mg IVP Q12 FLIP Propofol (Diprivan) 1,000 mg in 100 mls @ 1.445 mls/hr IV .Q24H PRN; Protocol PRN Reason: TITRATE PER MD ORDER Last Titration: 09/05/18 11:30 Dose: 20 mcg/kg/min, 5.781 mls/hr NOREPINEPHRINE BIT/0.9 % NACL (Levophed 4 Mg/ 250 Ml Ns Premixed) 4 mg in 250 mls @ 15 mls/hr IV .[id number] PRN; Protocol PRN Reason: TITRATE PER MD ORDER Last Titration: 09/04/18 09:55 Dose: 0 mcg/min, 0 mls/hr Vasopressin 20 units/ Sodium (Chloride) 101 mls @ 9.09 mls/hr IV .Q11H7M FLIP; Protocol Last Admin: 09/05/18 00:44 Dose: 9.09 mls/hr Doxycycline Hyclate 100 mg/ (Sodium Chloride) 100 mls @ 100 mls/hr IVPB Q12 SC H; Protocol Last Admin: 09/05/18 09:22 Dose: 100 mls/hr Levalbuterol HCl (Xopenex) 0.63 mg IH [id number] PRN PRN Reason: Shortness of Breath Morphine Sulfate (Morphine) 4 mg IVP Q4H PRN PRN Reason: Pain, moderate (4-7) Last Admin: 09/05/18 09:31 Dose: 4 mg Ondansetron HCl (Zofran Inj) 4 mg IVP Q6 PRN PRN Reason: Nausea/Vomiting Pantoprazole Sodium (Protonix Inj) 40 mg IVP DAILY FLIP Last Admin: 09/05/18 09:23 Dose: 40 mg - Labs Labs: 09/05/18 06:00 09/05/18 06:00 PT 13.6 SECONDS (9.4-12.5) H 09/01/18 21:00 INR 1.19 09/01/18 21:00 APTT 60.2 Seconds (25.1-36.5) H 09/05/18 06:00 - Constitutional Appears: Chronically Ill - Eye Exam Eye Exam: Normal appearance, PERRL - ENT Exam ENT Exam: Mucous Membranes Moist - Respiratory Exam Respiratory Exam: Decreased Breath Sounds - Cardiovascular Exam Cardiovascular Exam: Tachycardia, +S1, +S2 - GI/Abdominal Exam GI & Abdominal Exam: Soft, Normal Bowel Sounds - Extremities Exam Extremities Exam: Normal Inspection - Neurological Exam Neurological Exam: Alert - Skin Skin Exam: Dry, Warm Assessment and Plan - Assessment and Plan (Free Text) Assessment: 73 year old female with history of lung cancer, COPD, cardiac myxoma who is admitted with N STEMI,CHF, respiratory failure, hypoxemia. Patient's son at bedside. Son states that his mother seems to be doing better but verbalizes that she is "still not out of the [place]" Son remains hopeful He wants to continue aggressive medical treatment. Psychosocial support provided. Gao of care discussion, 10 minutes Plan: Goals of care Respiratory failure/hypoxemia: Weaning trial in progress. Continue Xopenex, Solu Cortef . Monitor ABG's N STEMI/CHF: DC heparin, start ASA, Plavix. Cardiology following Sepsis/ pneumonia: Continue Doxycycline ID recs reviewed.
--- NOTE | 2018-09-05 22:56 | CP.PCM.PN ---
Subjective - Date & Time of Evaluation Date of Evaluation: 09/05/18 Time of Evaluation: 08:45 - Subjective Subjective: Still intubated but more awake, no fevers. Objective - Vital Signs/Intake and Output Vital Signs (last 24 hours): Temp Pulse Resp BP Pulse Ox 98.3 F 88 27 H 103/66 100 09/05/18 12:00 09/05/18 17:12 09/05/18 12:59 09/05/18 13:00 09/05/18 12:59 Intake and Output: 09/05/18 09/06/18 18:59 06:59 Intake Total 600 20 Output Total 600 Balance 0 20 - Medications Medications: Current Medications Aspirin (Aspirin Chewable) 81 mg NG DAILY FLIP Last Admin: 09/05/18 12:15 Dose: 81 mg Clopidogrel Bisulfate (Plavix) 75 mg NG DAILY [facility] Last Admin: 09/05/18 12:15 Dose: 75 mg Heparin Sodium (Porcine) (Heparin) 5,000 units SC Q8 FLIP; Protocol Last Admin: 09/05/18 21:37 Dose: 5,000 units Hydrocortisone Sodium Succinate (Solu-Cortef) 50 mg IVP Q12 FLIP Last Admin: 09/05/18 21:38 Dose: 50 mg Propofol (Diprivan) 1,000 mg in 100 mls @ 1.445 mls/hr IV .Q24H PRN; Protocol PRN Reason: TITRATE PER MD ORDER Last Admin: 09/05/18 20:32 Dose: 30 mcg/kg/min, 8.671 mls/hr NOREPINEPHRINE BIT/0.9 % NACL (Levophed 4 Mg/ 250 Ml Ns Premixed) 4 mg in 250 mls @ 15 mls/hr IV .[id number] PRN; Protocol PRN Reason: TITRATE PER MD ORDER Last Titration: 09/04/18 09:55 Dose: 0 mcg/min, 0 mls/hr Vasopressin 20 units/ Sodium (Chloride) 101 mls @ 9.09 mls/hr IV .Q11H7M FLIP; Protocol Last Admin: 09/05/18 00:44 Dose: 9.09 mls/hr Doxycycline Hyclate 100 mg/ (Sodium Chloride) 100 mls @ 100 mls/hr IVPB Q12 FLIP; Protocol Last Admin: 09/05/18 21:37 Dose: 100 mls/hr Levalbuterol HCl (Xopenex) 0.63 mg IH [id number] PRN PRN Reason: Shortness of Breath Morphine Sulfate (Morphine) 4 mg IVP Q4H PRN PRN Reason: Pain, moderate (4-7) Last Admin: 09/05/18 21:37 Dose: 4 mg Ondansetron HCl (Zofran Inj) 4 mg IVP Q6 PRN PRN Reason: Nausea/Vomiting Pantoprazole Sodium (Protonix Inj) 40 mg IVP DAILY FLIP Last Admin: 09/05/18 09:23 Dose: 40 mg - Labs Labs: 09/05/18 06:00 09/05/18 06:00 PT 13.6 SECONDS (9.4-12.5) H 09/01/18 21:00 INR 1.19 09/01/18 21:00 APTT 60.2 Seconds (25.1-36.5) H 09/05/18 06:00 - Constitutional Appears: Chronically Ill, Other (intubated) - Head Exam Head Exam: NORMAL INSPECTION - Respiratory Exam Respiratory Exam: Decreased Breath Sounds - Cardiovascular Exam Cardiovascular Exam: +S1, +S2 - GI/Abdominal Exam GI & Abdominal Exam: Soft. absent: Tenderness Assessment and Plan - Assessment and Plan (Free Text) Plan: Assessment systemic inflammatory response syndrome probably with cardiogenic shock and VDRF due to acute NSTEMI R/O pneumonia acute renal failure lung cancer HTN COPD history of cardiac myxoma Plan cultures have been negative and PCT is normal - complete 4-7 days of Doxycycline (Day 4 today) follow up further plans of Cardiology will continue to monitor clinically
[2018-09-06] MEDS: Propofol 10 mg/ml 1,000 MG/100 ML VIAL IV PRN ×3 (06:14→21:40)
--- NOTE | 2018-09-06 06:56 | CP.PCM.PN ---
<Brock Mcneal L - Last Filed: 09/06/18 17:58> Subjective - Date & Time of Evaluation Date of Evaluation: 09/06/18 Time of Evaluation: 06:54 - Subjective Subjective: Resident Progress Note for Hospitalist Service Patient examined at bedside. No acute events overnight. Patient is alert, able to communicate that she has some back pain, however no pain anywhere else. Patient failed spontaneous breathing trial today. Family requests LTACH placement upon discharge. Objective - Vital Signs/Intake and Output Vital Signs (last 24 hours): Temp Pulse Resp BP Pulse Ox 98.3 F 84 27 H 103/66 100 09/05/18 12:00 09/06/18 05:32 09/05/18 12:59 09/05/18 13:00 09/05/18 12:59 Intake and Output: 09/05/18 09/06/18 18:59 06:59 Intake Total 600 120 Output Total 600 Balance 0 120 - Medications Medications: Current Medications Aspirin (Aspirin Chewable) 81 mg NG DAILY [facility] Last Admin: 09/05/18 12:15 Dose: 81 mg Clopidogrel Bisulfate (Plavix) 75 mg NG DAILY [facility] Last Admin: 09/05/18 12:15 Dose: 75 mg Heparin Sodium (Porcine) (Heparin) 5,000 units SC Q8 [facility]; Protocol Last Admin: 09/06/18 06:23 Dose: Not Given Hydrocortisone Sodium Succinate (Solu-Cortef) 50 mg IVP Q12 [facility] Last Admin: 09/05/18 21:38 Dose: 50 mg Propofol (Diprivan) 1,000 mg in 100 mls @ 1.445 mls/hr IV .Q24H PRN; Protocol PRN Reason: TITRATE PER MD ORDER Last Admin: 09/06/18 06:14 Dose: 30 mcg/kg/min, 8.671 mls/hr NOREPINEPHRINE BIT/0.9 % NACL (Levophed 4 Mg/ 250 Ml Ns Premixed) 4 mg in 250 mls @ 15 mls/hr IV .[id number] PRN; Protocol PRN Reason: TITRATE PER MD ORDER Last Titration: 09/04/18 09:55 Dose: 0 mcg/min, 0 mls/hr Vasopressin 20 units/ Sodium (Chloride) 101 mls @ 9.09 mls/hr IV .Q11H7M FLIP; Protocol Last Admin: 09/05/18 00:44 Dose: 9.09 mls/hr Doxycycline Hyclate 100 mg/ (Sodium Chloride) 100 mls @ 100 mls/hr IVPB Q12 FLIP; Protocol Last Admin: 09/05/18 21:37 Dose: 100 mls/hr Levalbuterol HCl (Xopenex) 0.63 mg IH [id number] PRN PRN Reason: Shortness of Breath Morphine Sulfate (Morphine) 4 mg IVP Q4H PRN PRN Reason: Pain, moderate (4-7) Last Admin: 09/05/18 21:37 Dose: 4 mg Ondansetron HCl (Zofran Inj) 4 mg IVP Q6 PRN PRN Reason: Nausea/Vomiting Pantoprazole Sodium (Protonix Inj) 40 mg IVP DAILY FLIP Last Admin: 09/05/18 09:23 Dose: 40 mg - Labs Labs: 09/05/18 06:00 09/05/18 06:00 PT 13.6 SECONDS (9.4-12.5) H 09/01/18 21:00 INR 1.19 09/01/18 21:00 APTT 60.2 Seconds (25.1-36.5) H 09/05/18 06:00 - Additional Findings Additional findings: - Constitutional Appears: Non-toxic, No Acute Distress - Head Exam Head Exam: ATRAUMATIC, NORMOCEPHALIC - Eye Exam Eye Exam: Normal appearance, PERRL - ENT Exam ENT Exam: Mucous Membranes Moist Additional comments: ett in place - Respiratory Exam Respiratory Exam: Rales, NORMAL BREATHING PATTERN. absent: Accessory Muscle Use, Respiratory Distress - Cardiovascular Exam Cardiovascular Exam: Tachycardia, RRR, +S1, +S2 - GI/Abdominal Exam GI & Abdominal Exam: Soft, Normal Bowel Sounds. absent: Distended, Firm, Rigid - Extremities Exam Extremities Exam: Normal Capillary Refill, Pedal Edema Additional comments: +1 pitting edema - Skin Skin Exam: Dry, Intact, Normal Color Assessment and Plan - Assessment and Plan (Free Text) Assessment: 73 year old female with past medical history of unspecified lung cancer with unspecified chemotherapy that she has been receiving since being diagnosed in March 2018, hypertension, COPD, cardiac myxoma, and asthma presents with shortness of breath and chest pain. Plan: Respiratory failure - s/p intubation - PE vs. CHF exacerbation - CXR this AM shows improvement in severe vascular congestion - BNP 9330 - Echo in 2014 showed EF of 51.4% with mild TR - Chest CT unable to be done as patient is unstable - Xopenex PRN - Lasix 40 mg IVP daily - Heme/onc consulted. Recs appreciated. Septic shock - afebrile, no leukocytosis - no longer on pressors - Solu-cortef 50 mg IV Q12 - lactate trending down - Doxycycline, merrem discontinued - procal wnl, BCx neg x2, UA unremarkable - ID consulted. Appreciate recs. NSTEMI - EKG: sinus tachycardia with ST depressions in V5 and V6 with heart rate of 141 - ECHO shows EF 25%, trace AR, mild to moderate TR and pulmonary hypertension, trace pericardial effusion - troponins trending down - heparin drip discontinued - Carvedilol 3.125 mg PO BID - Cardiology consulted. Recommend conservative management. Anemia - Hgb 7.7 today - no sign of active bleeding - monitor and transfuse PRN ARF - resolved - likely pre-renal due to septic shock GI prophylaxis: protonix 40 mg IV daily DVT prophylaxis: heparin 500 units SC Q8H Case discussed with Dr. Bud Mcneal PGY-1 <Zenia Farrell - Last Filed: 09/10/18 11:25> Objective - Vital Signs/Intake and Output Vital Signs (last 24 hours): Temp Pulse Resp BP Pulse Ox 98.4 F 120 H 12 123/68 88 L 09/08/18 08:00 09/09/18 21:23 09/09/18 22:05 09/08/18 08:00 09/09/18 20:00 Intake and Output: 09/10/18 09/10/18 06:59 18:59 Intake Total 20 Balance 20 - Labs Labs: 09/07/18 06:00 09/07/18 06:00 PT 13.6 SECONDS (9.4-12.5) H 09/01/18 21:00 INR 1.19 09/01/18 21:00 APTT 60.2 Seconds (25.1-36.5) H 09/05/18 06:00 Attending/Attestation - Attestation I have personally seen and examined this patient.: Yes I have fully participated in the care of the patient.: Yes I have reviewed all pertinent clinical information, including history, physical exam and plan: Yes Notes (Text): 09/10/18 11:25 Medical record note made by the resident after discussion with my direction and input after the patient was personally seen and examined by me. I have reviewed the chart and agree that the record accurately reflects by personal performance of the history, physical exam, data review, and medical decision-making, in the course for the patient. I have also personally directed the plan of care.
[2018-09-06 06:57] LABS: GRAN # 4.74 (1.4-6.5); GRAN % 73.6 % (50.0-68.0); HEMOGLOBIN 7.7 g/dL (12.0-16.0); MEAN CELL VOLUME 93.7 fl (80.0-105.0); MEAN CORPUSCULAR HEMOGLOBIN 28.4 pg (25.0-35.0); MEAN CORPUSCULAR HGB CONC 30.3 g/dl (31.0-37.0); MONO # 0.7 (0.1-0.6); MONO % 10.4 % (1.0-6.0); RBC 2.71 10^6/uL (3.5-6.1); RED CELL DISTRIBUTION WIDTH 16.1 % (11.5-14.5); WHITE BLOOD COUNT 6.4 10^3/uL (4.5-11.0)
[2018-09-06 07:22] LABS: ALT/SGPT 42 U/L (7-56); AST/SGOT 36 U/L (14-36); BLOOD UREA NITROGEN 43 mg/dL (7-21); CALCIUM 9.2 mg/dL (8.4-10.5); GFR NON-AFRICAN AMERICAN > 60
[2018-09-06] MEDS: Morphine 4 mg/ml ISec IVP PRN ×4 (08:06→21:37)
[2018-09-06] MEDS: Levalbuterol 0.63 MG/3 ML Inhal Soln UD IH PRN ×3 (08:13→19:40)
--- NOTE | 2018-09-06 08:34 | PN ---
DATE: 09/06/2018 SUBJECTIVE: The patient is seen lying in bed in the ICU. She remains intubated and sedated. She is off all inotropes and pressors at this point in time. MEDICATIONS: Include aspirin, Diprivan, doxycycline, subcutaneous heparin, Plavix, Protonix, Solu-Cortef, and Xopenex. OBJECTIVE: GENERAL: She is an elderly woman who appears chronically ill. VITAL SIGNS: Her blood pressure is 96/60 with a pulse of 86, respirations are 16. She is in sinus rhythm. She is afebrile. HEENT: She remains orally intubated. CHEST: Bilateral scattered rhonchi heard. HEART: PMI displaced laterally with soft tones noted. ABDOMEN: Soft with normoactive bowel sounds. EXTREMITIES: No edema. DIAGNOSTIC DATA: Morning blood work pending. Chest x-ray from yesterday revealed improving pulmonary vascular congestion. IMPRESSION: 1. Recent iue-IQ-[id number] elevation myocardial infarction, complicated by respiratory failure and shock, clinically improved. 2. Persistent ventilatory dependency. 3. Advanced lung cancer. 4. History of tobacco abuse. 5. Renal insufficiency. 6. Severe anemia. RECOMMENDATIONS: Plavix will be withheld giving her fall in hemoglobin. Subcutaneous heparin and aspirin can continue for now, and may need to be discontinued should her hemoglobin drop further. Stool guaiacs are pending. Continue supportive care as advised. Ventilatory weaning should will proceed as tolerated. PRBC transfusion may be helpful in improving her oxygen requirements and help with successful extubation. In general, conservative management is most appropriate given her lung cancer. We will follow along as needed. Mark Etienne MD MTDD
--- NOTE | 2018-09-06 09:10 | RAD ---
Date of service: 09/06/2018 HISTORY: intubated COMPARISON: 09/05/2018. FINDINGS: Endotracheal tube terminates 3 cm proximal to the carmine. The right IJV line terminates in the SVC. The right MediPort terminates in the SVC. The nasogastric tube terminates in the stomach LUNGS: The lungs are well inflated. There is worsening severe pulmonary venous congestion and interstitial pulmonary edema. PLEURA: Worsening pleural effusions. No pneumothorax. CARDIOVASCULAR: The heart is normal in size. There are aortic atherosclerotic calcification present. OSSEOUS STRUCTURES: Within normal limits for the patient's age. VISUALIZED UPPER ABDOMEN: Normal. OTHER FINDINGS: None. IMPRESSION: Worsening pulmonary venous congestion, effusions and interstitial edema. Stable position of support line and tubes.
[2018-09-06 10:09] LABS: ARTERIAL BLOOD GAS HCO3 21.2 mmol/L (21-28); ARTERIAL BLOOD GAS HEMOGLOBIN 7.7 g/dL (11.7-17.4); ARTERIAL BLOOD GAS O2 CAPACITY 10.5 mL/dl (16-24); ARTERIAL BLOOD GAS O2 CONTENT 10.3 ML/dl (15-23); ARTERIAL BLOOD GAS O2 SAT 97.8 % (95-98); ARTERIAL BLOOD GAS PCO2 32 mm/Hg (35-45); ARTERIAL BLOOD GAS PH 7.43 (7.35-7.45); ARTERIAL BLOOD GAS TCO2 22.2 mmol.L (22-28)
--- NOTE | 2018-09-06 12:57 | CP.CCUPN ---
<Queen,Wilver - Last Filed: 09/06/18 13:48> CCU Subjective - Physician Review Subjective (Free Text): Wilver Queen Internal Medicine Resident- Progress Note on Behalf of Critical Care Team Subjective: Patient seen and examined at bedside. No acute events overnight. Patient is awake, alert, responds to verbal stimuli. Does not answer questions appropriately. Further subjective data cannot be ascertained at this time. 12 point ROS cannot be ascertained Physical Examination: - Constitutional Appears: no acute distress - Head Exam Head Exam: ATRAUMATIC, NORMAL INSPECTION, NORMOCEPHALIC - Eye Exam Eye Exam: PERRL - ENT Exam ENT Exam: Mucous Membranes Moist - Respiratory Exam Respiratory Exam: rales bilaterally - Cardiovascular Exam Cardiovascular Exam: Tachycardia, REGULAR RHYTHM - GI/Abdominal Exam GI & Abdominal Exam: Normal Bowel Sounds, Soft. absent: Tenderness - Extremities Exam Extremities exam: Positive for: full ROM - Neurological Exam Neurological exam: awake, alert, responds to verbal stimuli - Skin Skin Exam: Dry, Intact Assessment and Plan: Patient is a 73 year old female with past medical history of lung cancer, hypertension, COPD, cardiac myxoma, and asthma who was admitted for evaluation and treatment of shortness of breath and chest pain. Developed hypoxemic respiratory failure. Intubated for airway protection. Patient was transferred to the ICU for further management. Neurology - off of propofol- will restart propofol if patient develops resp. distress during weaning trial - sedation vacation daily Pulm: Hypoxemic Respiratory Failure - 2/2 to cardiogenic shock - 09/06/2018- Chest xay- Worsening pulmonary venous congestion, effusions and interstitial edema- lasix 40mg IV stat followed by lasix 40mg IV daily - attempt weaning trial today, if failed continue vent setting PRVC TV: 350, RR: 15, FiO2: 40%, PEEP: 10 - hydrocortisone 50mg q12 - xopenex PRN for shortness of breath - weaning and sedation trial daily - head of bed 30 degrees - continue low to intermediate tidal volumes, protective oral hygiene, conservative fluid management Cardiology NSTEMI, CHF Exacerbation - EKG on admission: sinus tachycardia HR [address] depressions in V5 and V6 - Echo in 2014 showed EF of 51.4% with mild TR - 09/12/18 Echocardiogram- LVEF 29.3% - heparin drip discontinued - continue aspirin 81mg PO daily - discontinue plavix 75mg PO daily due to low hemoglobin - started on coreg 3.125mg PO bid with holding parameters - Measure daily weight - Strict I and Os - cardiology consulted (Dr. Hammonds)- appreciate recommendations History of hypertension - started on coreg 3.125mg PO bid with holding parameters - cardiology consulted (Dr. Hammonds)- appreciate recommendations Renal ISAEL - likely pre-renal secondary to sepsis - monitor closely via CMP GI GI prophylaxis - protonix 40mg IV daily Infectious Disease SIRs Secondary to Shock - blood culture no growth after 4 days x 2 - discontinue doxycycline after dose on 09/06/2018- completed course - infectious disease consulted (Dr. Jones)- appreciate recommendations Heme/Onc Stage IV Lung Cancer - patient is s/p chemotherapy - heme/onc consulted (Dr. Matson)- appreciate recommendations Anemia - stable 7.7 from 7.6 - normocytic - monitor closely via AM CBC DVT prophylaxis - subq heparin 5000units subq8h Patient seen, case discussed with, and plan approved by attending physician Dr. Childress. CCU Objective - Vital Signs / Intake & Output Vital Signs (Last 4 hours): Vital Signs Temp Pulse Resp BP Pulse Ox 09/06/18 11:22 98.0 F 09/06/18 11:00 96 H 25 H 109/57 L 96 09/06/18 10:00 84 23 95/53 L 99 09/06/18 09:12 92 H 09/06/18 09:00 84 23 94/51 L 97 Intake and Output (Last 8hrs): Intake & Output 09/05/18 09/06/18 09/06/18 22:59 06:59 14:59 Intake Total 560 100 60 Output Total 600 Balance -40 100 60 Intake: IV 560 100 60 Right Forearm 120 Right Internal Jugular 400 Output: Urine 600 Urethral (Reyes) 600 Other: # Bowel Movements 1 - Physical Exam Head: Positive for: Atraumatic, Normocephalic Pupils: Positive for: PERRL Extroacular Muscles: Positive for: EOMI Conjunctiva: Positive for: Normal Mouth: Positive for: Moist Mucous Membranes Neck: Positive for: Normal Range of Motion Respiratory/Chest: Positive for: Decreased Breath Sounds, Rhonchi (Rhonchi bilaterally), Tachypneic Cardiovascular: Positive for: Normal S1, S2, Tachycardic. Negative for: Murmurs Abdomen: Negative for: Tenderness, Distention, Peritoneal Signs Upper Extremity: Positive for: Normal Inspection. Negative for: Cyanosis, Edema Lower Extremity: Positive for: Normal Inspection. Negative for: Edema Neurological: Positive for: GCS=15, CN II-XII Intact Skin: Positive for: Warm, Dry, Normal Color. Negative for: Rashes Psychiatric: Positive for: Alert, Oriented x 3 - Medications Active Medications: Active Medications Generic Name Dose Route Start Last Admin Trade Name Freq PRN Reason Stop Dose Admin Aspirin 81 mg 09/05/18 11:15 09/06/18 09:24 Aspirin Chewable NG 81 mg DAILY FLIP Administration Carvedilol 3.125 mg 09/06/18 18:00 Coreg PO BID FLIP Clopidogrel Bisulfate 75 mg 09/05/18 11:15 09/05/18 12:15 Plavix NG 75 mg DAILY FLIP Administration Heparin Sodium (Porcine) 5,000 units 09/05/18 14:00 09/06/18 06:23 Heparin SC Not Given Q8 [facility] Protocol Hydrocortisone Sodium Succinate 50 mg 09/05/18 22:00 09/06/18 09:24 Solu-Cortef IVP 50 mg Q12 FLIP Administration Propofol 1,000 mg in 100 mls @ 1.445 mls/hr 09/02/18 05:21 09/06/18 12:27 Diprivan IV 35 mcg/kg/min .Q24H PRN 10.116 mls/hr TITRATE PER MD ORDER Titration Protocol 5 MCG/KG/MIN Levalbuterol HCl 0.63 mg 09/01/18 23:33 09/06/18 08:13 Xopenex IH 0.63 mg [id number] PRN Administration Shortness of Breath Morphine Sulfate 4 mg 09/02/18 20:20 09/06/18 11:39 Morphine IVP 4 mg Q4H PRN Administration Pain, moderate (4-7) Ondansetron HCl 4 mg 09/02/18 01:17 Zofran Inj IVP Q6 PRN Nausea/Vomiting Pantoprazole Sodium 40 mg 09/02/18 10:00 09/06/18 09:24 Protonix Inj IVP 40 mg DAILY FLIP Administration - Patient Studies Lab Studies: Microbiology Studies 09/01/18 21:30 Blood Culture - Preliminary Blood NO GROWTH AFTER 4 DAYS 09/01/18 21:10 Blood Culture - Preliminary Blood NO GROWTH AFTER 4 DAYS Lab Studies 09/06/18 09/06/18 09/06/18 Range/Units 10:00 06:30 06:30 WBC 6.4 (4.5-11.0) 10^3/uL RBC 2.71 L (3.5-6.1) 10^6/uL Hgb 7.7 L (12.0-16.0) g/dL Hct 25.4 L (36.0-48.0) % MCV 93.7 (80.0-105.0) fl MCH 28.4 (25.0-35.0) pg MCHC 30.3 L (31.0-37.0) g/dl RDW 16.1 H (11.5-14.5) % Plt Count 271 (120.0-450.0) 10^3/uL MPV 10.0 (7.0-11.0) fl Gran % 73.6 H (50.0-68.0) % Lymph % (Auto) 16.0 L (22.0-35.0) % [place] % (Auto) 10.4 H (1.0-6.0) % Eos % (Auto) 0.0 L (1.5-5.0) % Baso % (Auto) 0.0 (0.0-3.0) % Gran # 4.74 (1.4-6.5) Lymph # (Auto) 1.0 L (1.2-3.4) [place] # (Auto) 0.7 H (0.1-0.6) Eos # (Auto) 0.0 (0.0-0.7) Baso # (Auto) 0.00 (0.0-2.0) K/mm3 pCO2 32 L (35-45) mm/Hg pO2 68.0 L (80-100) mm/Hg HCO3 21.2 (21-28) mmol/L ABG pH 7.43 (7.35-7.45) ABG Total CO2 22.2 (22-28) mmol.L ABG O2 Saturation 97.8 (95-98) % ABG O2 Content 10.3 L (15-23) ML/dl ABG Base Excess -2.7 L (-2.0-3.0) mmol/L ABG Hemoglobin 7.7 L (11.7-17.4) g/dL ABG Carboxyhemoglobin 1.9 H (0.5-1.5) % POC ABG HHb (Measured) 2.1 (0-5) % ABG Methemoglobin 1.3 (0.0-3.0) % ABG O2 Capacity 10.5 L (16-24) mL/dl Hgb O2 Saturation 94.6 L (95.0-98.0) % FiO2 50.0 % Sodium 146 (132-148) mmol/L Potassium 3.6 (3.6-5.0) mmol/L Chloride 118 H (98-107) mmol/L Carbon Dioxide 24 (21-33) mmol/L Anion Gap 8 L (10-20) BUN 43 H (7-21) mg/dL Creatinine 0.9 (0.7-1.2) mg/dl Est GFR ( Amer) > 60 Est GFR (Non-Af Amer) > 60 Random Glucose 102 (70-110) mg/dL Calcium 9.2 (8.4-10.5) mg/dL Phosphorus 2.7 (2.5-4.5) mg/dL Magnesium 2.2 (1.7-2.2) mg/dL Total Bilirubin 0.6 (0.2-1.3) mg/dL AST 36 D (14-36) U/L ALT 42 (7-56) U/L Alkaline Phosphatase 50 (38-126) U/L Total Protein 6.1 (5.8-8.3) g/dL Albumin 3.0 (3.0-4.8) g/dL Globulin 3.1 gm/dL Albumin/Globulin Ratio 1.0 L (1.1-1.8) Laboratory Results - last 24 hr 09/06/18 09/06/18 09/06/18 06:30 06:30 10:00 WBC 6.4 RBC 2.71 L Hgb 7.7 L Hct 25.4 L MCV 93.7 MCH 28.4 MCHC 30.3 L RDW 16.1 H Plt Count 271 MPV 10.0 Gran % 73.6 H Lymph % (Auto) 16.0 L [place] % (Auto) 10.4 H Eos % (Auto) 0.0 L Baso % (Auto) 0.0 Gran # 4.74 Lymph # (Auto) 1.0 L [place] # (Auto) 0.7 H Eos # (Auto) 0.0 Baso # (Auto) 0.00 pCO2 32 L pO2 68.0 L HCO3 21.2 ABG pH 7.43 ABG Total CO2 22.2 ABG O2 Saturation 97.8 ABG O2 Content 10.3 L ABG Base Excess -2.7 L ABG Hemoglobin 7.7 L ABG Carboxyhemoglobin 1.9 H POC ABG HHb (Measured) 2.1 ABG Methemoglobin 1.3 ABG O2 Capacity 10.5 L Hgb O2 Saturation 94.6 L FiO2 50.0 Sodium 146 Potassium 3.6 Chloride 118 H Carbon Dioxide 24 Anion Gap 8 L BUN 43 H Creatinine 0.9 Est GFR ( Amer) > 60 Est GFR (Non-Af Amer) > 60 Random Glucose 102 Calcium 9.2 Phosphorus 2.7 Magnesium 2.2 Total Bilirubin 0.6 AST 36 D ALT 42 Alkaline Phosphatase 50 Total Protein 6.1 Albumin 3.0 Globulin 3.1 Albumin/Globulin Ratio 1.0 L Radiology Impressions: Radiology Impressions Chest X-Ray 09/06/18 08:19 IMPRESSION: Worsening pulmonary venous congestion, effusions and interstitial edema. Stable position of support line and tubes. Critical Care Progress Note - Nutrition Nutrition: Nutrition Category Date Time Status NPO Diet [DIET] Diets 09/02/18 Breakfast Ordered <Mayank Childress - Last Filed: 09/06/18 14:52> CCU Objective - Vital Signs / Intake & Output Vital Signs (Last 4 hours): Vital Signs Temp Pulse Resp BP Pulse Ox 09/06/18 14:00 120 H 09/06/18 13:28 116/74 09/06/18 11:22 98.0 F 09/06/18 11:00 96 H 25 H 109/57 L 96 Intake and Output (Last 8hrs): Intake & Output 09/05/18 09/06/18 09/06/18 22:59 06:59 14:59 Intake Total 560 100 62 Output Total 600 1200 Balance -40 100 -1138 Intake: IV 560 100 62 Right Forearm 120 Right Internal Jugular 400 Output: Urine 600 1200 Urethral (Reyes) 600 1200 Other: # Bowel Movements 1 1 - Medications Active Medications: Active Medications Generic Name Dose Route Start Last Admin Trade Name Freq PRN Reason Stop Dose Admin Aspirin 81 mg 09/05/18 11:15 09/06/18 09:24 Aspirin Chewable NG 81 mg DAILY [facility] Administration Carvedilol 3.125 mg 09/06/18 18:00 Coreg PO BID [facility] Clopidogrel Bisulfate 75 mg 09/05/18 11:15 09/05/18 12:15 Plavix NG 75 mg DAILY [facility] Administration Furosemide 40 mg 09/07/18 10:00 Lasix IVP DAILY [facility] Heparin Sodium (Porcine) 5,000 units 09/05/18 14:00 09/06/18 06:23 Heparin SC Not Given Q8 [facility] Protocol Hydrocortisone Sodium Succinate 50 mg 09/05/18 22:00 09/06/18 09:24 Solu-Cortef IVP 50 mg Q12 [facility] Administration Propofol 1,000 mg in 100 mls @ 1.445 mls/hr 09/02/18 05:21 09/06/18 13:11 Diprivan IV 40 mcg/kg/min .Q24H PRN 11.561 mls/hr TITRATE PER MD ORDER Titration Protocol 5 MCG/KG/MIN Levalbuterol HCl 0.63 mg 09/01/18 23:33 09/06/18 13:34 Xopenex IH 0.63 mg [id number] PRN Administration Shortness of Breath Morphine Sulfate 4 mg 09/02/18 20:20 09/06/18 11:39 Morphine IVP 4 mg Q4H PRN Administration Pain, moderate (4-7) Ondansetron HCl 4 mg 09/02/18 01:17 Zofran Inj IVP Q6 PRN Nausea/Vomiting Pantoprazole Sodium 40 mg 09/02/18 10:00 09/06/18 09:24 Protonix Inj IVP 40 mg DAILY [facility] Administration - Patient Studies Lab Studies: Microbiology Studies 09/01/18 21:30 Blood Culture - Preliminary Blood NO GROWTH AFTER 4 DAYS 09/01/18 21:10 Blood Culture - Preliminary Blood NO GROWTH AFTER 4 DAYS Lab Studies 09/06/18 09/06/18 09/06/18 Range/Units 10:00 06:30 06:30 WBC 6.4 (4.5-11.0) 10^3/uL RBC 2.71 L (3.5-6.1) 10^6/uL Hgb 7.7 L (12.0-16.0) g/dL Hct 25.4 L (36.0-48.0) % MCV 93.7 (80.0-105.0) fl MCH 28.4 (25.0-35.0) pg MCHC 30.3 L (31.0-37.0) g/dl RDW 16.1 H (11.5-14.5) % Plt Count 271 (120.0-450.0) 10^3/uL MPV 10.0 (7.0-11.0) fl Gran % 73.6 H (50.0-68.0) % Lymph % (Auto) 16.0 L (22.0-35.0) % [place] % (Auto) 10.4 H (1.0-6.0) % Eos % (Auto) 0.0 L (1.5-5.0) % Baso % (Auto) 0.0 (0.0-3.0) % Gran # 4.74 (1.4-6.5) Lymph # (Auto) 1.0 L (1.2-3.4) [place] # (Auto) 0.7 H (0.1-0.6) Eos # (Auto) 0.0 (0.0-0.7) Baso # (Auto) 0.00 (0.0-2.0) K/mm3 pCO2 32 L (35-45) mm/Hg pO2 68.0 L (80-100) mm/Hg HCO3 21.2 (21-28) mmol/L ABG pH 7.43 (7.35-7.45) ABG Total CO2 22.2 (22-28) mmol.L ABG O2 Saturation 97.8 (95-98) % ABG O2 Content 10.3 L (15-23) ML/dl ABG Base Excess -2.7 L (-2.0-3.0) mmol/L ABG Hemoglobin 7.7 L (11.7-17.4) g/dL ABG Carboxyhemoglobin 1.9 H (0.5-1.5) % POC ABG HHb (Measured) 2.1 (0-5) % ABG Methemoglobin 1.3 (0.0-3.0) % ABG O2 Capacity 10.5 L (16-24) mL/dl Hgb O2 Saturation 94.6 L (95.0-98.0) % FiO2 50.0 % Sodium 146 (132-148) mmol/L Potassium 3.6 (3.6-5.0) mmol/L Chloride 118 H (98-107) mmol/L Carbon Dioxide 24 (21-33) mmol/L Anion Gap 8 L (10-20) BUN 43 H (7-21) mg/dL Creatinine 0.9 (0.7-1.2) mg/dl Est GFR ( Amer) > 60 Est GFR (Non-Af Amer) > 60 Random Glucose 102 (70-110) mg/dL Calcium 9.2 (8.4-10.5) mg/dL Phosphorus 2.7 (2.5-4.5) mg/dL Magnesium 2.2 (1.7-2.2) mg/dL Total Bilirubin 0.6 (0.2-1.3) mg/dL AST 36 D (14-36) U/L ALT 42 (7-56) U/L Alkaline Phosphatase 50 (38-126) U/L Total Protein 6.1 (5.8-8.3) g/dL Albumin 3.0 (3.0-4.8) g/dL Globulin 3.1 gm/dL Albumin/Globulin Ratio 1.0 L (1.1-1.8) Laboratory Results - last 24 hr 09/06/18 09/06/18 09/06/18 06:30 06:30 10:00 WBC 6.4 RBC 2.71 L Hgb 7.7 L Hct 25.4 L MCV 93.7 MCH 28.4 MCHC 30.3 L RDW 16.1 H Plt Count 271 MPV 10.0 Gran % 73.6 H Lymph % (Auto) 16.0 L [place] % (Auto) 10.4 H Eos % (Auto) 0.0 L Baso % (Auto) 0.0 Gran # 4.74 Lymph # (Auto) 1.0 L [place] # (Auto) 0.7 H Eos # (Auto) 0.0 Baso # (Auto) 0.00 pCO2 32 L pO2 68.0 L HCO3 21.2 ABG pH 7.43 ABG Total CO2 22.2 ABG O2 Saturation 97.8 ABG O2 Content 10.3 L ABG Base Excess -2.7 L ABG Hemoglobin 7.7 L ABG Carboxyhemoglobin 1.9 H POC ABG HHb (Measured) 2.1 ABG Methemoglobin 1.3 ABG O2 Capacity 10.5 L Hgb O2 Saturation 94.6 L FiO2 50.0 Sodium 146 Potassium 3.6 Chloride 118 H Carbon Dioxide 24 Anion Gap 8 L BUN 43 H Creatinine 0.9 Est GFR ( Amer) > 60 Est GFR (Non-Af Amer) > 60 Random Glucose 102 Calcium 9.2 Phosphorus 2.7 Magnesium 2.2 Total Bilirubin 0.6 AST 36 D ALT 42 Alkaline Phosphatase 50 Total Protein 6.1 Albumin 3.0 Globulin 3.1 Albumin/Globulin Ratio 1.0 L Radiology Impressions: Radiology Impressions Chest X-Ray 09/06/18 08:19 IMPRESSION: Worsening pulmonary venous congestion, effusions and interstitial edema. Stable position of support line and tubes. Critical Care Progress Note - Nutrition Nutrition: Nutrition Category Date Time Status NPO Diet [DIET] Diets 09/02/18 Breakfast Ordered Addendum Addendum: 09/06/18 14:52 ICU Attending Addendum Patient seen and examined. Case reviewed on round with housestaff. Agree with resident note above with the following additions/exceptions: 73 year old female with past medical history of lung cancer, hypertension, COPD, cardiac myxoma, and asthma admitted for CHF exasc requiring itnubated SBT today, if she appears volume overlaoded during trial will add lasix EF 29%, tachcardic should be on BB will start coreg low dose cont asa plavix being held to due hb drop f/u cardio recs if cannot extubate, will discuss LTACH with family Rest of care as above Mayank Childress MD Pulmonary Critical Care and Sleep Medicine CC Time: 31 mins
--- NOTE | 2018-09-06 20:11 | PN ---
DATE: 09/06/2018 SUBJECTIVE: The patient is seen earlier today in 128, bed 2. The patient remains intubated on a ventilator in overall poor condition. No fevers. PHYSICAL EXAMINATION: VITAL SIGNS: Temperature is 98, pulse of 120, blood pressure is 116/78. The patient remains on the vent. HEENT: ET tube is in place. NECK: Supple. LUNGS: Decreased breath sounds. HEART: Normal S1 and S2. ABDOMEN: Soft. LABORATORY EXAMINATION: Reveals a white count of 6.4, hemoglobin of 7, platelets of 271. Chemistries reveal a BUN of 43, creatinine of 0.9. Troponin is elevated. Last procalcitonin is 0.39. Urinalysis is noted. Microbiology reveals the blood culture is negative and nasal screen is negative. ASSESSMENT AND PLAN: This is a 73-year-old female who was seen earlier in 128, bed 2 with systemic inflammatory response syndrome, cardiogenic shock and ventilator dependent respiratory failure, acute non-ST elevation myocardial infarction with a negative procalcitonin and negative cultures. The patient is with lung cancer, acute renal failure, history of cardiac myxoma. Today is day #5 of doxycycline. Currently, the patient is on Solu-Cortef and currently off of antibiotics. However, the patient is at risk for developing nosocomial infections. We will follow with you. Sal Jones MD
[2018-09-07] MEDS: Morphine 4 mg/ml ISec IVP PRN ×3 (02:52→22:33)
[2018-09-07 07:09] LABS: GRAN # 6.29 (1.4-6.5); GRAN % 82.1 % (50.0-68.0); LYMPH # 0.7 (1.2-3.4); LYMPH % 9.5 % (22.0-35.0); MEAN CORPUSCULAR HEMOGLOBIN 28.4 pg (25.0-35.0); MEAN CORPUSCULAR HGB CONC 30.2 g/dl (31.0-37.0); MEAN PLATELET VOLUME 9.9 fl (7.0-11.0); MONO # 0.6 (0.1-0.6); MONO % 8.4 % (1.0-6.0); RBC 2.82 10^6/uL (3.5-6.1); RED CELL DISTRIBUTION WIDTH 16.1 % (11.5-14.5); WHITE BLOOD COUNT 7.7 10^3/uL (4.5-11.0)
[2018-09-07] MEDS: Propofol 10 mg/ml 1,000 MG/100 ML VIAL IV PRN ×2 (07:30→16:15)
[2018-09-07 07:31] LABS: ALB/GLOB RATIO 0.9 (1.1-1.8); ALT/SGPT 48 U/L (7-56); AST/SGOT 32 U/L (14-36); BLOOD UREA NITROGEN 40 mg/dL (7-21); CALCIUM 9.1 mg/dL (8.4-10.5); GFR NON-AFRICAN AMERICAN > 60
[2018-09-07 08:51] LABS: ARTERIAL BLOOD GAS HCO3 24.6 mmol/L (21-28); ARTERIAL BLOOD GAS HEMOGLOBIN 7.7 g/dL (11.7-17.4); ARTERIAL BLOOD GAS O2 CAPACITY 10.6 mL/dl (16-24); ARTERIAL BLOOD GAS O2 CONTENT 10.5 ML/dl (15-23); ARTERIAL BLOOD GAS O2 SAT 98.7 % (95-98); ARTERIAL BLOOD GAS PCO2 37 mm/Hg (35-45); ARTERIAL BLOOD GAS PH 7.43 (7.35-7.45); ARTERIAL BLOOD GAS TCO2 25.7 mmol.L (22-28)
--- NOTE | 2018-09-07 09:13 | PN ---
DATE: 09/07/2018 SUBJECTIVE: The patient was seen lying in bed in the ICU. She remains intubated and on propofol. She is no longer on any pressors or inotropes. Her current medications include aspirin, carvedilol 3.125 mg b.i.d., subcutaneous heparin, Lasix 40 mg daily, Protonix 40 mg daily, Solu-Cortef 50 mg every 12 hours, and Xopenex. PHYSICAL EXAMINATION: GENERAL: She is a chronically ill-appearing elderly woman. VITAL SIGNS: Blood pressure is 106/60 with a pulse of 80 and sinus, respirations are 16. She is afebrile. HEENT: She is orally intubated. CHEST: Bilateral scattered rhonchi present. HEART: PMI displaced laterally with soft tones noted. Systolic murmur left sternal border. ABDOMEN: Soft with mild diffuse tenderness. EXTREMITIES: No edema. DIAGNOSTIC DATA: White count 7.7, hemoglobin and hematocrit are 8 and 26.5, platelet count is 261,000. Last recorded arterial blood gas showed a pH of 7.43, pCO2 of 32 and pO2 of 68 on 50% FIO2. She is currently on 100% FIO2 and 5 of PEEP. Morning chest x-ray is pending. IMPRESSION: 1. Status post non-ST segment elevation myocardial infarction complicated by respiratory failure and hemodynamic compromise somewhat improved. 2. Respiratory insufficiency, persistent, likely multifactorial given advanced lung cancer. 3. Severe anemia. 4. Renal insufficiency. 5. History of tobacco abuse. RECOMMENDATIONS: Transfusion to a hemoglobin closer to 10 may be helpful in terms of assisting with ventilatory weaning. Stool guaiacs should be checked. Serial CBCs monitored as well. Beta-william therapy should continue as tolerated. Her overall prognosis is poor and conservative management is planned. We will be happy to follow only as needed. Mark Etienne MD
[2018-09-07] MEDS ORDERED: Potassium Chloride 40 mEq/30 ml LIQ UD NG ONE (09:37)
--- NOTE | 2018-09-07 09:54 | PN ---
DATE: 09/07/2018 SUBJECTIVE: The patient is in bed in no acute distress, nontoxic. PHYSICAL EXAMINATION: VITAL SIGNS: Temperature 98, blood pressure 107/60, respiratory rate 28, heart rate 79. HEENT: Examination of HEENT is unremarkable. NECK: Supple. LUNGS: Decreased breath sounds. HEART: Normal S1, S2. ABDOMEN: Soft. LABORATORY DATA: White count 7.7, hemoglobin 8, platelets 261. BUN of 43, creatinine of 0.9. Troponins are elevated. Microbiology reveals the cultures are negative. Review of orders reveals the patient to be on Solu-Cortef. ASSESSMENT AND PLAN: This is a 73-year-old female who was seen earlier with SIRS, systemic inflammatory response syndrome; cardiogenic shock; respiratory failure, on a ventilator with acute [id number] myocardial infarction and negative procalcitonin, negative cultures in a patient with lung cancer, renal failure, cardiac myxoma; now off of antibiotics and afebrile. The patient is at very high risk of developing nosocomial infections. Sal Jones MD
--- NOTE | 2018-09-07 11:58 | CP.CCUPN ---
<QueenWilver ruby - Last Filed: 09/07/18 11:41> CCU Subjective - Physician Review Subjective (Free Text): Wilver Queen Internal Medicine Resident- Progress Note on Behalf of Critical Care Team Subjective: Patient seen and examined at bedside. No acute events overnight. Patient is sedated. Further subjective data cannot be ascertained at this time. 12 point ROS cannot be ascertained Physical Examination: - Constitutional Appears: no acute distress - Head Exam Head Exam: ATRAUMATIC, NORMAL INSPECTION, NORMOCEPHALIC - Eye Exam Eye Exam: PERRL - ENT Exam ENT Exam: Mucous Membranes Moist - Respiratory Exam Respiratory Exam: rales bilaterally - Cardiovascular Exam Cardiovascular Exam: RRR, REGULAR RHYTHM - GI/Abdominal Exam GI & Abdominal Exam: Normal Bowel Sounds, Soft. absent: Tenderness - Extremities Exam Extremities exam: Positive for: full ROM - Neurological Exam Neurological exam: sedated - Skin Skin Exam: Dry, Intact Assessment and Plan: Patient is a 73 year old female with past medical history of lung cancer, hypertension, COPD, cardiac myxoma, and asthma who was admitted for evaluation and treatment of shortness of breath and chest pain. Developed hypoxemic respiratory failure. Intubated for airway protection. Patient was transferred to the ICU for further management. Neurology - continue propofol - sedation vacation daily Pulm: Hypoxemic Respiratory Failure - / to cardiogenic shock - 09/07/2018- Chest xray- Worsening pulmonary venous congestion, cephalization bilaterally- increase lasix 40mg IV BID - no weaning trial today continue vent setting PRVC TV: 350, RR: 15, FiO2: 40%, PEEP: 10 - continue hydrocortisone 50mg q12 - discontinue xopenex PRN for shortness of breath - start duonebs q4 scheduled - head of bed 30 degrees - continue low to intermediate tidal volumes, protective oral hygiene, conservative fluid management Cardiology NSTEMI, CHF Exacerbation - EKG on admission: sinus tachycardia HR [address] depressions in V5 and V6 - Echo in 2014 showed EF of 51.4% with mild TR - 09/12/18 Echocardiogram- LVEF 29.3% - continue aspirin 81mg PO daily - restart plavix 75mg PO daily, hemoglobin stable - started on coreg 3.125mg PO bid with holding parameters - Measure daily weight - Strict I and Os - cardiology consulted (Dr. Hammonds)- appreciate recommendations History of hypertension - continue on coreg 3.125mg PO bid with holding parameters - cardiology consulted (Dr. Hammonds)- appreciate recommendations Renal ISAEL - likely pre-renal secondary to sepsis - monitor closely via CMP Hypokalemia - 3.7, acs patient, goal 4-5 - replete with 40meq via ngt - monitor closely via cmp GI Nutrition - plant wrapper consulted- appreciate recommendations - started on jevity feeds 1.2 @30, goal @50, free water flushes 200 q12 GI prophylaxis - protonix 40mg IV daily Infectious Disease SIRs Secondary to Shock - blood culture no growth after 5 days x 2 - discontinue doxycycline after dose on 09/06/2018- completed course - infectious disease consulted (Dr. Jones)- appreciate recommendations Heme/Onc Stage IV Lung Cancer - patient is s/p chemotherapy - heme/onc consulted (Dr. Matson)- appreciate recommendations Anemia - stable 8.0 from 7.7 - normocytic - monitor closely via AM CBC DVT prophylaxis - subq heparin 5000units subq8h Patient seen, case discussed with, and plan approved by attending physician Dr. Childress. CCU Objective - Vital Signs / Intake & Output Vital Signs (Last 4 hours): Vital Signs Pulse BP Pulse Ox 09/07/18 11:01 95 H 152/55 H 100 09/07/18 11:00 100 H 100 09/07/18 10:00 103 H 116/56 L 100 09/07/18 09:39 81 92/49 L 09/07/18 09:38 92/49 L 09/07/18 09:00 76 92/49 L 100 09/07/18 08:00 86 106/54 L 95 Intake and Output (Last 8hrs): Intake & Output 09/06/18 09/07/18 09/07/18 22:59 06:59 14:59 Intake Total 423 100 Output Total 3600 600 Balance -3177 -600 100 Intake: IV 323 100 Left Forearm 123 Right Subclavian 100 Tube Feeding 100 Output: Urine 3600 600 Urethral (Reyes) 3600 600 Other: # Bowel Movements 1 - Physical Exam Head: Positive for: Atraumatic, Normocephalic Pupils: Positive for: PERRL Extroacular Muscles: Positive for: EOMI Conjunctiva: Positive for: Normal Mouth: Positive for: Moist Mucous Membranes Neck: Positive for: Normal Range of Motion Respiratory/Chest: Positive for: Decreased Breath Sounds, Rhonchi (Rhonchi bilaterally), Tachypneic Cardiovascular: Positive for: Normal S1, S2, Tachycardic. Negative for: Murmurs Abdomen: Negative for: Tenderness, Distention, Peritoneal Signs Upper Extremity: Positive for: Normal Inspection. Negative for: Cyanosis, Edema Lower Extremity: Positive for: Normal Inspection. Negative for: Edema Neurological: Positive for: GCS=15, CN II-XII Intact Skin: Positive for: Warm, Dry, Normal Color. Negative for: Rashes Psychiatric: Positive for: Alert, Oriented x 3 - Medications Active Medications: Active Medications Generic Name Dose Route Start Last Admin Trade Name Freq PRN Reason Stop Dose Admin Aspirin 81 mg 09/05/18 11:15 09/07/18 09:39 Aspirin Chewable NG 81 mg DAILY FLIP Administration Carvedilol 3.125 mg 09/06/18 18:00 09/07/18 09:39 Coreg PO Not Given BID FLIP Clopidogrel Bisulfate 75 mg 09/05/18 11:15 09/05/18 12:15 Plavix NG 75 mg DAILY FLIP Administration Furosemide 40 mg 09/07/18 18:00 Lasix IVP BID FLIP Heparin Sodium (Porcine) 5,000 units 09/05/18 14:00 09/07/18 06:42 Heparin SC 5,000 units Q8 FLIP Administration Protocol Hydrocortisone Sodium Succinate 50 mg 09/05/18 22:00 09/07/18 09:39 Solu-Cortef IVP 50 mg Q12 FLIP Administration Propofol 1,000 mg in 100 mls @ 1.445 mls/hr 09/02/18 05:21 09/07/18 07:30 Diprivan IV 35 mcg/kg/min .Q24H PRN 10.116 mls/hr TITRATE PER MD ORDER Administration Protocol 5 MCG/KG/MIN Levalbuterol HCl 0.63 mg 09/01/18 23:33 09/06/18 19:40 Xopenex IH 0.63 mg [id number] PRN Administration Shortness of Breath Morphine Sulfate 4 mg 09/02/18 20:20 09/07/18 02:52 Morphine IVP 4 mg Q4H PRN Administration Pain, moderate (4-7) Ondansetron HCl 4 mg 09/02/18 01:17 Zofran Inj IVP Q6 PRN Nausea/Vomiting Pantoprazole Sodium 40 mg 09/02/18 10:00 09/07/18 09:38 Protonix Inj IVP 40 mg DAILY FLIP Administration - Patient Studies Lab Studies: Microbiology Studies 09/01/18 21:30 Blood Culture - Final Blood NO GROWTH AFTER 5 DAYS Gram Stain - Final TEST NOT PERFORMED 09/01/18 21:10 Blood Culture - Final Blood NO GROWTH AFTER 5 DAYS Gram Stain - Final TEST NOT PERFORMED Lab Studies 09/07/18 09/07/18 09/07/18 Range/Units 08:40 06:00 06:00 WBC 7.7 D (4.5-11.0) 10^3/uL RBC 2.82 L (3.5-6.1) 10^6/uL Hgb 8.0 L (12.0-16.0) g/dL Hct 26.5 L (36.0-48.0) % MCV 94.0 (80.0-105.0) fl MCH 28.4 (25.0-35.0) pg MCHC 30.2 L (31.0-37.0) g/dl RDW 16.1 H (11.5-14.5) % Plt Count 261 (120.0-450.0) 10^3/uL MPV 9.9 (7.0-11.0) fl Gran % 82.1 H (50.0-68.0) % Lymph % (Auto) 9.5 L (22.0-35.0) % [place] % (Auto) 8.4 H (1.0-6.0) % Eos % (Auto) 0.0 L (1.5-5.0) % Baso % (Auto) 0.0 (0.0-3.0) % Gran # 6.29 (1.4-6.5) Lymph # (Auto) 0.7 L (1.2-3.4) [place] # (Auto) 0.6 (0.1-0.6) Eos # (Auto) 0.0 (0.0-0.7) Baso # (Auto) 0.00 (0.0-2.0) K/mm3 pCO2 37 (35-45) mm/Hg pO2 76.0 L (80-100) mm/Hg HCO3 24.6 (21-28) mmol/L ABG pH 7.43 (7.35-7.45) ABG Total CO2 25.7 (22-28) mmol.L ABG O2 Saturation 98.7 H (95-98) % ABG O2 Content 10.5 L (15-23) ML/dl ABG Base Excess 0.3 (-2.0-3.0) mmol/L ABG Hemoglobin 7.7 L (11.7-17.4) g/dL ABG Carboxyhemoglobin 2.1 H (0.5-1.5) % POC ABG HHb (Measured) 1.3 (0-5) % ABG Methemoglobin 0.8 (0.0-3.0) % ABG O2 Capacity 10.6 L (16-24) mL/dl Hgb O2 Saturation 95.8 (95.0-98.0) % FiO2 100.0 % Sodium 148 (132-148) mmol/L Potassium 3.7 (3.6-5.0) mmol/L Chloride 117 H (98-107) mmol/L Carbon Dioxide 26 (21-33) mmol/L Anion Gap 9 L (10-20) BUN 40 H (7-21) mg/dL Creatinine 0.8 (0.7-1.2) mg/dl Est GFR ( Amer) > 60 Est GFR (Non-Af Amer) > 60 Random Glucose 109 (70-110) mg/dL Calcium 9.1 (8.4-10.5) mg/dL Phosphorus 3.7 (2.5-4.5) mg/dL Magnesium 1.9 (1.7-2.2) mg/dL Total Bilirubin 0.7 (0.2-1.3) mg/dL AST 32 (14-36) U/L ALT 48 (7-56) U/L Alkaline Phosphatase 54 (38-126) U/L Total Protein 6.2 (5.8-8.3) g/dL Albumin 3.0 (3.0-4.8) g/dL Globulin 3.2 gm/dL Albumin/Globulin Ratio 0.9 L (1.1-1.8) Blood Type Blood Type Confirm Antibody Screen Crossmatch BBK History Checked 09/06/18 09/06/18 Range/Units 17:46 17:16 WBC (4.5-11.0) 10^3/uL RBC (3.5-6.1) 10^6/uL Hgb (12.0-16.0) g/dL Hct (36.0-48.0) % MCV (80.0-105.0) fl MCH (25.0-35.0) pg MCHC (31.0-37.0) g/dl RDW (11.5-14.5) % Plt Count (120.0-450.0) 10^3/uL MPV (7.0-11.0) fl Gran % (50.0-68.0) % Lymph % (Auto) (22.0-35.0) % [place] % (Auto) (1.0-6.0) % Eos % (Auto) (1.5-5.0) % Baso % (Auto) (0.0-3.0) % Gran # (1.4-6.5) Lymph # (Auto) (1.2-3.4) [place] # (Auto) (0.1-0.6) Eos # (Auto) (0.0-0.7) Baso # (Auto) (0.0-2.0) K/mm3 pCO2 (35-45) mm/Hg pO2 (80-100) mm/Hg HCO3 (21-28) mmol/L ABG pH (7.35-7.45) ABG Total CO2 (22-28) mmol.L ABG O2 Saturation (95-98) % ABG O2 Content (15-23) ML/dl ABG Base Excess (-2.0-3.0) mmol/L ABG Hemoglobin (11.7-17.4) g/dL ABG Carboxyhemoglobin (0.5-1.5) % POC ABG HHb (Measured) (0-5) % ABG Methemoglobin (0.0-3.0) % ABG O2 Capacity (16-24) mL/dl Hgb O2 Saturation (95.0-98.0) % FiO2 % Sodium (132-148) mmol/L Potassium (3.6-5.0) mmol/L Chloride (98-107) mmol/L Carbon Dioxide (21-33) mmol/L Anion Gap (10-20) BUN (7-21) mg/dL Creatinine (0.7-1.2) mg/dl Est GFR ( Amer) Est GFR (Non-Af Amer) Random Glucose (70-110) mg/dL Calcium (8.4-10.5) mg/dL Phosphorus (2.5-4.5) mg/dL Magnesium (1.7-2.2) mg/dL Total Bilirubin (0.2-1.3) mg/dL AST (14-36) U/L ALT (7-56) U/L Alkaline Phosphatase (38-126) U/L Total Protein (5.8-8.3) g/dL Albumin (3.0-4.8) g/dL Globulin gm/dL Albumin/Globulin Ratio (1.1-1.8) Blood Type A POSITIVE Blood Type Confirm A POSITIVE Antibody Screen Negative Crossmatch See Detail BBK History Checked No verified bt Laboratory Results - last 24 hr 09/06/18 09/06/18 09/07/18 17:16 17:46 06:00 WBC 7.7 D RBC 2.82 L Hgb 8.0 L Hct 26.5 L MCV 94.0 MCH 28.4 MCHC 30.2 L RDW 16.1 H Plt Count 261 MPV 9.9 Gran % 82.1 H Lymph % (Auto) 9.5 L [place] % (Auto) 8.4 H Eos % (Auto) 0.0 L Baso % (Auto) 0.0 Gran # 6.29 Lymph # (Auto) 0.7 L [place] # (Auto) 0.6 Eos # (Auto) 0.0 Baso # (Auto) 0.00 pCO2 pO2 HCO3 ABG pH ABG Total CO2 ABG O2 Saturation ABG O2 Content ABG Base Excess ABG Hemoglobin ABG Carboxyhemoglobin POC ABG HHb (Measured) ABG Methemoglobin ABG O2 Capacity Hgb O2 Saturation FiO2 Sodium Potassium Chloride Carbon Dioxide Anion Gap BUN Creatinine Est GFR ( Amer) Est GFR (Non-Af Amer) Random Glucose Calcium Phosphorus Magnesium Total Bilirubin AST ALT Alkaline Phosphatase Total Protein Albumin Globulin Albumin/Globulin Ratio Blood Type A POSITIVE Blood Type Confirm A POSITIVE Antibody Screen Negative Crossmatch See Detail BBK History Checked No verified bt 09/07/18 09/07/18 06:00 08:40 WBC RBC Hgb Hct MCV MCH MCHC RDW Plt Count MPV Gran % Lymph % (Auto) [place] % (Auto) Eos % (Auto) Baso % (Auto) Gran # Lymph # (Auto) [place] # (Auto) Eos # (Auto) Baso # (Auto) pCO2 37 pO2 76.0 L HCO3 24.6 ABG pH 7.43 ABG Total CO2 25.7 ABG O2 Saturation 98.7 H ABG O2 Content 10.5 L ABG Base Excess 0.3 ABG Hemoglobin 7.7 L ABG Carboxyhemoglobin 2.1 H POC ABG HHb (Measured) 1.3 ABG Methemoglobin 0.8 ABG O2 Capacity 10.6 L Hgb O2 Saturation 95.8 FiO2 100.0 Sodium 148 Potassium 3.7 Chloride 117 H Carbon Dioxide 26 Anion Gap 9 L BUN 40 H Creatinine 0.8 Est GFR ( Amer) > 60 Est GFR (Non-Af Amer) > 60 Random Glucose 109 Calcium 9.1 Phosphorus 3.7 Magnesium 1.9 Total Bilirubin 0.7 AST 32 ALT 48 Alkaline Phosphatase 54 Total Protein 6.2 Albumin 3.0 Globulin 3.2 Albumin/Globulin Ratio 0.9 L Blood Type Blood Type Confirm Antibody Screen Crossmatch BBK History Checked Critical Care Progress Note - Nutrition Nutrition: Nutrition Category Date Time Status NPO Diet [DIET] Diets 09/02/18 Breakfast Ordered <Mayank Childress - Last Filed: 09/07/18 17:54> CCU Objective - Vital Signs / Intake & Output Vital Signs (Last 4 hours): Vital Signs Temp Pulse BP 09/07/18 17:10 89 103/54 L 09/07/18 16:00 98.7 F 09/07/18 14:00 102 H Intake and Output (Last 8hrs): Intake & Output 09/07/18 09/07/18 09/07/18 06:59 14:59 22:59 Intake Total 100 100 Output Total 600 Balance -600 100 100 Intake: IV 100 100 Output: Urine 600 Urethral (Reyes) 600 - Medications Active Medications: Active Medications Generic Name Dose Route Start Last Admin Trade Name Freq PRN Reason Stop Dose Admin Albuterol/Ipratropium 3 ml 09/07/18 12:00 Duoneb 3 Mg/0.5 Mg (3 Ml) Ud IH [id number] FLIP Aspirin 81 mg 09/05/18 11:15 09/07/18 09:39 Aspirin Chewable NG 81 mg DAILY [facility]1983 Administration Carvedilol 3.125 mg 09/06/18 18:00 09/07/18 17:10 Coreg PO Not Given BID [facility], [facility]1983 Clopidogrel Bisulfate 75 mg 09/05/18 11:15 09/05/18 12:15 Plavix NG 75 mg DAILY FLIP Administration Furosemide 40 mg 09/07/18 18:00 09/07/18 17:10 Lasix IVP 40 mg BID FLIP Administration Heparin Sodium (Porcine) 5,000 units 09/05/18 14:00 09/07/18 16:14 Heparin SC 5,000 units Q8 [facility]1983 Administration Protocol Hydrocortisone Sodium Succinate 50 mg 09/05/18 22:00 09/07/18 09:39 Solu-Cortef IVP 50 mg Q12 [facility]1983 Administration Propofol 1,000 mg in 100 mls @ 1.445 mls/hr 09/02/18 05:21 09/07/18 16:15 Diprivan IV 35 mcg/kg/min .Q24H PRN 10.116 mls/hr TITRATE PER MD ORDER Administration Protocol 5 MCG/KG/MIN Morphine Sulfate 4 mg 09/02/18 20:20 09/07/18 12:01 Morphine IVP 4 mg Q4H PRN Administration Pain, moderate (4-7) Ondansetron HCl 4 mg 09/02/18 01:17 Zofran Inj IVP Q6 PRN Nausea/Vomiting Pantoprazole Sodium 40 mg 09/02/18 10:00 09/07/18 09:38 Protonix Inj IVP 40 mg DAILY FLIP Administration - Patient Studies Lab Studies: Microbiology Studies 09/01/18 21:30 Blood Culture - Final Blood NO GROWTH AFTER 5 DAYS Gram Stain - Final TEST NOT PERFORMED 09/01/18 21:10 Blood Culture - Final Blood NO GROWTH AFTER 5 DAYS Gram Stain - Final TEST NOT PERFORMED Lab Studies 09/07/18 09/07/18 09/07/18 Range/Units 11:55 08:40 06:00 WBC (4.5-11.0) 10^3/uL RBC (3.5-6.1) 10^6/uL Hgb (12.0-16.0) g/dL Hct (36.0-48.0) % MCV (80.0-105.0) fl MCH (25.0-35.0) pg MCHC (31.0-37.0) g/dl RDW (11.5-14.5) % Plt Count (120.0-450.0) 10^3/uL MPV (7.0-11.0) fl Gran % (50.0-68.0) % Lymph % (Auto) (22.0-35.0) % [place] % (Auto) (1.0-6.0) % Eos % (Auto) (1.5-5.0) % Baso % (Auto) (0.0-3.0) % Gran # (1.4-6.5) Lymph # (Auto) (1.2-3.4) [place] # (Auto) (0.1-0.6) Eos # (Auto) (0.0-0.7) Baso # (Auto) (0.0-2.0) K/mm3 pCO2 37 (35-45) mm/Hg pO2 76.0 L (80-100) mm/Hg HCO3 24.6 (21-28) mmol/L ABG pH 7.43 (7.35-7.45) ABG Total CO2 25.7 (22-28) mmol.L ABG O2 Saturation 98.7 H (95-98) % ABG O2 Content 10.5 L (15-23) ML/dl ABG Base Excess 0.3 (-2.0-3.0) mmol/L ABG Hemoglobin 7.7 L (11.7-17.4) g/dL ABG Carboxyhemoglobin 2.1 H (0.5-1.5) % POC ABG HHb (Measured) 1.3 (0-5) % ABG Methemoglobin 0.8 (0.0-3.0) % ABG O2 Capacity 10.6 L (16-24) mL/dl Hgb O2 Saturation 95.8 (95.0-98.0) % FiO2 100.0 % Sodium 148 (132-148) mmol/L Potassium 3.7 (3.6-5.0) mmol/L Chloride 117 H (98-107) mmol/L Carbon Dioxide 26 (21-33) mmol/L Anion Gap 9 L (10-20) BUN 40 H (7-21) mg/dL Creatinine 0.8 (0.7-1.2) mg/dl Est GFR ( Amer) > 60 Est GFR (Non-Af Amer) > 60 POC Glucose (mg/dL) 126 H (65-110) mg/dL Random Glucose 109 (70-110) mg/dL Calcium 9.1 (8.4-10.5) mg/dL Phosphorus 3.7 (2.5-4.5) mg/dL Magnesium 1.9 (1.7-2.2) mg/dL Total Bilirubin 0.7 (0.2-1.3) mg/dL AST 32 (14-36) U/L ALT 48 (7-56) U/L Alkaline Phosphatase 54 (38-126) U/L Total Protein 6.2 (5.8-8.3) g/dL Albumin 3.0 (3.0-4.8) g/dL Globulin 3.2 gm/dL Albumin/Globulin Ratio 0.9 L (1.1-1.8) Blood Type Blood Type Confirm Antibody Screen Crossmatch BBK History Checked 09/07/18 09/06/18 09/06/18 Range/Units 06:00 17:46 17:16 WBC 7.7 D (4.5-11.0) 10^3/uL RBC 2.82 L (3.5-6.1) 10^6/uL Hgb 8.0 L (12.0-16.0) g/dL Hct 26.5 L (36.0-48.0) % MCV 94.0 (80.0-105.0) fl MCH 28.4 (25.0-35.0) pg MCHC 30.2 L (31.0-37.0) g/dl RDW 16.1 H (11.5-14.5) % Plt Count 261 (120.0-450.0) 10^3/uL MPV 9.9 (7.0-11.0) fl Gran % 82.1 H (50.0-68.0) % Lymph % (Auto) 9.5 L (22.0-35.0) % [place] % (Auto) 8.4 H (1.0-6.0) % Eos % (Auto) 0.0 L (1.5-5.0) % Baso % (Auto) 0.0 (0.0-3.0) % Gran # 6.29 (1.4-6.5) Lymph # (Auto) 0.7 L (1.2-3.4) [place] # (Auto) 0.6 (0.1-0.6) Eos # (Auto) 0.0 (0.0-0.7) Baso # (Auto) 0.00 (0.0-2.0) K/mm3 pCO2 (35-45) mm/Hg pO2 (80-100) mm/Hg HCO3 (21-28) mmol/L ABG pH (7.35-7.45) ABG Total CO2 (22-28) mmol.L ABG O2 Saturation (95-98) % ABG O2 Content (15-23) ML/dl ABG Base Excess (-2.0-3.0) mmol/L ABG Hemoglobin (11.7-17.4) g/dL ABG Carboxyhemoglobin (0.5-1.5) % POC ABG HHb (Measured) (0-5) % ABG Methemoglobin (0.0-3.0) % ABG O2 Capacity (16-24) mL/dl Hgb O2 Saturation (95.0-98.0) % FiO2 % Sodium (132-148) mmol/L Potassium (3.6-5.0) mmol/L Chloride (98-107) mmol/L Carbon Dioxide (21-33) mmol/L Anion Gap (10-20) BUN (7-21) mg/dL Creatinine (0.7-1.2) mg/dl Est GFR ( Amer) Est GFR (Non-Af Amer) POC Glucose (mg/dL) (65-110) mg/dL Random Glucose (70-110) mg/dL Calcium (8.4-10.5) mg/dL Phosphorus (2.5-4.5) mg/dL Magnesium (1.7-2.2) mg/dL Total Bilirubin (0.2-1.3) mg/dL AST (14-36) U/L ALT (7-56) U/L Alkaline Phosphatase (38-126) U/L Total Protein (5.8-8.3) g/dL Albumin (3.0-4.8) g/dL Globulin gm/dL Albumin/Globulin Ratio (1.1-1.8) Blood Type A POSITIVE Blood Type Confirm A POSITIVE Antibody Screen Negative Crossmatch See Detail BBK History Checked No verified bt Laboratory Results - last 24 hr 09/06/18 09/06/18 09/07/18 17:16 17:46 06:00 WBC 7.7 D RBC 2.82 L Hgb 8.0 L Hct 26.5 L MCV 94.0 MCH 28.4 MCHC 30.2 L RDW 16.1 H Plt Count 261 MPV 9.9 Gran % 82.1 H Lymph % (Auto) 9.5 L [place] % (Auto) 8.4 H Eos % (Auto) 0.0 L Baso % (Auto) 0.0 Gran # 6.29 Lymph # (Auto) 0.7 L [place] # (Auto) 0.6 Eos # (Auto) 0.0 Baso # (Auto) 0.00 pCO2 pO2 HCO3 ABG pH ABG Total CO2 ABG O2 Saturation ABG O2 Content ABG Base Excess ABG Hemoglobin ABG Carboxyhemoglobin POC ABG HHb (Measured) ABG Methemoglobin ABG O2 Capacity Hgb O2 Saturation FiO2 Sodium Potassium Chloride Carbon Dioxide Anion Gap BUN Creatinine Est GFR ( Amer) Est GFR (Non-Af Amer) POC Glucose (mg/dL) Random Glucose Calcium Phosphorus Magnesium Total Bilirubin AST ALT Alkaline Phosphatase Total Protein Albumin Globulin Albumin/Globulin Ratio Blood Type A POSITIVE Blood Type Confirm A POSITIVE Antibody Screen Negative Crossmatch See Detail BBK History Checked No verified bt 09/07/18 09/07/18 09/07/18 06:00 08:40 11:55 WBC RBC Hgb Hct MCV MCH MCHC RDW Plt Count MPV Gran % Lymph % (Auto) [place] % (Auto) Eos % (Auto) Baso % (Auto) Gran # Lymph # (Auto) [place] # (Auto) Eos # (Auto) Baso # (Auto) pCO2 37 pO2 76.0 L HCO3 24.6 ABG pH 7.43 ABG Total CO2 25.7 ABG O2 Saturation 98.7 H ABG O2 Content 10.5 L ABG Base Excess 0.3 ABG Hemoglobin 7.7 L ABG Carboxyhemoglobin 2.1 H POC ABG HHb (Measured) 1.3 ABG Methemoglobin 0.8 ABG O2 Capacity 10.6 L Hgb O2 Saturation 95.8 FiO2 100.0 Sodium 148 Potassium 3.7 Chloride 117 H Carbon Dioxide 26 Anion Gap 9 L BUN 40 H Creatinine 0.8 Est GFR ( Amer) > 60 Est GFR (Non-Af Amer) > 60 POC Glucose (mg/dL) 126 H Random Glucose 109 Calcium 9.1 Phosphorus 3.7 Magnesium 1.9 Total Bilirubin 0.7 AST 32 ALT 48 Alkaline Phosphatase 54 Total Protein 6.2 Albumin 3.0 Globulin 3.2 Albumin/Globulin Ratio 0.9 L Blood Type Blood Type Confirm Antibody Screen Crossmatch BBK History Checked Radiology Impressions: Radiology Impressions Chest X-Ray 09/07/18 07:07 IMPRESSION: Worsening pulmonary edema. Critical Care Progress Note - Nutrition Nutrition: Nutrition Category Date Time Status NPO Diet [DIET] Diets 09/02/18 Breakfast Ordered Addendum Addendum: 09/07/18 17:52 ICU Attending Addendum Patient seen and examined. Case reviewed on round with housestaff. Agree with resident note above with the following additions/exceptions: 73 year old female with past medical history of lung cancer, hypertension, COPD, cardiac myxoma, and asthma admitted for CHF exasc requiring intubated pt requiring more oxygen now up to 100% fio2 despite diuresis -4.5L EF 29%, tachcardic should be on BB will start coreg low dose cont asa plavix being held to due hb drop f/u cardio recs d/w family today they wish to terminally extubate tomorrow 09/08/18 given her poor over all quality of life and prolonged need for "life support" they feel it would be against he wishes to cont to keep her on the vent she would not want trach or LTACH type care Rest of care as above Mayank Childress MD Pulmonary Critical Care and Sleep Medicine CC Time: 33 mins
--- NOTE | 2018-09-07 12:19 | RAD ---
Date of service: 09/07/2018 HISTORY: intubated COMPARISON: Multiple serial examinations preceding the most recent study: September 06, 2018. FINDINGS: LUNGS: Progressive pulmonary edema. PLEURA: No significant pleural effusion identified, no pneumothorax apparent. CARDIOVASCULAR: Atherosclerotic calcifications identified primarily aortic arch. Venous access catheter in stable, satisfactory position. No significant interval change compared to the prior examination(s). OSSEOUS STRUCTURES: No significant abnormalities. VISUALIZED UPPER ABDOMEN: Normal. OTHER FINDINGS: Stable, satisfactory position ventilatory, vascular and nasogastric apparatus. IMPRESSION: Worsening pulmonary edema.
--- NOTE | 2018-09-07 14:02 | CP.PCM.PN ---
<Hilda Paz - Last Filed: 09/07/18 16:25> Subjective - Date & Time of Evaluation Date of Evaluation: 09/07/18 Time of Evaluation: 07:00 - Subjective Subjective: PGY-3 progress note for Hospitalist service Patient seen and examined at bedside in ICU. No acute events overnight. Patient is sleepy but easily arousable on propofol drip. Patient failed spontaneous breathing trial yesterday as well as day before. Currently requiring 100% fio2. Son at bedside, discussed with him the possibility of needing LTACH placement upon discharge. Objective - Vital Signs/Intake and Output Vital Signs (last 24 hours): Temp Pulse Resp BP Pulse Ox 97.3 F L 95 H 26 H 152/55 H 100 09/07/18 12:00 09/07/18 11:01 09/06/18 17:42 09/07/18 11:01 09/07/18 11:01 Intake and Output: 09/07/18 09/07/18 06:59 18:59 Intake Total 64 100 Output Total 600 Balance -536 100 - Medications Medications: Current Medications Albuterol/Ipratropium (Duoneb 3 Mg/0.5 Mg (3 Ml) Ud) 3 ml IH [id number] [facility] Aspirin (Aspirin Chewable) 81 mg NG DAILY [facility] Last Admin: 09/07/18 09:39 Dose: 81 mg Carvedilol (Coreg) 3.125 mg PO BID [facility] Last Admin: 09/07/18 09:39 Dose: Not Given Clopidogrel Bisulfate (Plavix) 75 mg NG DAILY [facility] Last Admin: 09/05/18 12:15 Dose: 75 mg Furosemide (Lasix) 40 mg IVP BID [facility] Heparin Sodium (Porcine) (Heparin) 5,000 units SC Q8 [facility]; Protocol Last Admin: 09/07/18 06:42 Dose: 5,000 units Hydrocortisone Sodium Succinate (Solu-Cortef) 50 mg IVP Q12 [facility] Last Admin: 09/07/18 09:39 Dose: 50 mg Propofol (Diprivan) 1,000 mg in 100 mls @ 1.445 mls/hr IV .Q24H PRN; Protocol PRN Reason: TITRATE PER MD ORDER Last Admin: 09/07/18 07:30 Dose: 35 mcg/kg/min, 10.116 mls/hr Morphine Sulfate (Morphine) 4 mg IVP Q4H PRN PRN Reason: Pain, moderate (4-7) Last Admin: 09/07/18 12:01 Dose: 4 mg Ondansetron HCl (Zofran Inj) 4 mg IVP Q6 PRN PRN Reason: Nausea/Vomiting Pantoprazole Sodium (Protonix Inj) 40 mg IVP DAILY [facility] Last Admin: 09/07/18 09:38 Dose: 40 mg - Labs Labs: 09/07/18 06:00 09/07/18 06:00 PT 13.6 SECONDS (9.4-12.5) H 09/01/18 21:00 INR 1.19 09/01/18 21:00 APTT 60.2 Seconds (25.1-36.5) H 09/05/18 06:00 - Additional Findings Additional findings: - Constitutional Appears: Non-toxic, No Acute Distress - Head Exam Head Exam: ATRAUMATIC, NORMOCEPHALIC - Eye Exam Eye Exam: Normal appearance, PERRL - ENT Exam ENT Exam: Mucous Membranes Moist Additional comments: ETT in place, patient on 100% fio2, peep of 5, respiratory rate of 18, wilson volume 350 - Respiratory Exam Respiratory Exam: Rales, NORMAL BREATHING PATTERN. absent: Accessory Muscle Use, Respiratory Distress - Cardiovascular Exam Cardiovascular Exam: Tachycardia, RRR, +S1, +S2 - GI/Abdominal Exam GI & Abdominal Exam: Soft, Normal Bowel Sounds. absent: Distended, Firm, Rigid - Extremities Exam Extremities Exam: Normal Capillary Refill, Pedal Edema Additional comments: +1 pitting edema - Skin Skin Exam: Dry, Intact, Normal Color Assessment and Plan - Assessment and Plan (Free Text) Assessment: 73 year old female with past medical history of unspecified lung cancer with unspecified chemotherapy that she has been receiving since being diagnosed in March 2018, hypertension, COPD, cardiac myxoma, and asthma presents with shortness of breath and chest pain found to have NSTEMI with cardiogenic shock and hypoxic respiratory failure requiring intubation. Patient failed previous weaning trials. Plan: Hyponxic Respiratory failure - Most likely due to cardiogenic shock - s/p intubation requiring 100% fio2 this morning - per ICU team no weaning trail today - CXR this AM shows worsening vascular congestion - BNP on 09/01 [id number] - Echo on 09/03/18 showed EF of 25%, mild to moderate pulm HTN, midl to moderate TR - continue hydrocortisone - Lasix 40 mg IVP daily - continue duonebs - started tube feedings - Heme/onc consulted. NSTEMI - EKG: sinus tachycardia with ST depressions in V5 and V6 with heart rate of 141 - ECHO on 09/03/18 showed EF 25%, trace AR, mild to moderate TR and pulmonary hypertension, trace pericardial effusion - no longer on pressors - troponins trending down - heparin drip discontinued - Carvedilol 3.125 mg PO BID - continue asa - restart plavix, Hgb stable - Cardiology consulted. Recommend conservative management. SIRS - most likely secondary to cardiogenic shock - afebrile, no leukocytosis - lactate trending down - Doxycycline, merrem discontinued - procal wnl, Blood Cultures neg x2, UA unremarkable - ID consulted Anemia - Hgb improved today to 8 - down trend possibly due to plavix - no sign of active bleeding, will follow up stool occult - monitor and transfuse if Hgb below 7.5 ARF - resolved - likely pre-renal due to cardiogenic shock h/o HTN - home BP meds held due to hypotension - started coreg 3.125 bid with holding parameters GI prophylaxis: protonix 40 mg IV daily DVT prophylaxis: heparin 500 units SC Q8H Case discussed with Dr. Farrell <Zenia Farrell - Last Filed: 09/10/18 11:24> Objective - Vital Signs/Intake and Output Vital Signs (last 24 hours): Temp Pulse Resp BP Pulse Ox 98.4 F 120 H 12 123/68 88 L 09/08/18 08:00 09/09/18 21:23 09/09/18 22:05 09/08/18 08:00 09/09/18 20:00 Intake and Output: 09/10/18 09/10/18 06:59 18:59 Intake Total 20 Balance 20 - Labs Labs: 09/07/18 06:00 09/07/18 06:00 PT 13.6 SECONDS (9.4-12.5) H 09/01/18 21:00 INR 1.19 09/01/18 21:00 APTT 60.2 Seconds (25.1-36.5) H 09/05/18 06:00 Attending/Attestation - Attestation I have personally seen and examined this patient.: Yes I have fully participated in the care of the patient.: Yes I have reviewed all pertinent clinical information, including history, physical exam and plan: Yes Notes (Text): 09/10/18 11:22 Medical record note made by the resident after discussion with my direction and input after the patient was personally seen and examined by me. I have reviewed the chart and agree that the record accurately reflects by personal performance of the history, physical exam, data review, and medical decision-making, in the course for the patient. I have also personally directed the plan of care. 73 year old female with PMH of cancer with hypertension, COPD, cardiac myxoma, and asthma presents with shortness of breath and chest pain found to have NSTEMI with cardiogenic shock and hypoxic respiratory failure requiring intubation. Patient was on multiple pressor and dobutamine infusion. Patient is off pressors but she is still hypoxic on high FIO2.Mental status is also poor. Management plan was discussed in detail with patient family who is at bed side. Education was provided. Prognosis is guarded.
[2018-09-07] MEDS: Insulin Reg-LOW-Coverage SC SCH (18:57)
[2018-09-07] MEDS: Albuterol-Ipratrop 3 mg / 0.5 (3 ml) UD IH SCH ×2 (19:45→23:35)
[2018-09-08] MEDS: Insulin Reg-LOW-Coverage SC SCH
[2018-09-08] MEDS: Propofol 10 mg/ml 1,000 MG/100 ML VIAL IV PRN ×4 (00:30→23:39)
[2018-09-08] MEDS: Morphine 4 mg/ml ISec IVP PRN (02:59)
[2018-09-08] MEDS: Albuterol-Ipratrop 3 mg / 0.5 (3 ml) UD IH SCH ×2 (03:56→07:08)
[2018-09-08 06:01] LABS: ARTERIAL BLOOD GAS HCO3 24.3 mmol/L (21-28); ARTERIAL BLOOD GAS HEMOGLOBIN 8.8 g/dL (11.7-17.4); ARTERIAL BLOOD GAS O2 CAPACITY 12.2 mL/dl (16-24); ARTERIAL BLOOD GAS O2 CONTENT 12.1 ML/dl (15-23); ARTERIAL BLOOD GAS O2 SAT 99.4 % (95-98); ARTERIAL BLOOD GAS PCO2 35 mm/Hg (35-45); ARTERIAL BLOOD GAS PH 7.45 (7.35-7.45); ARTERIAL BLOOD GAS TCO2 25.4 mmol.L (22-28)
--- NOTE | 2018-09-08 07:09 | CP.PCM.PN ---
<Brock Mcneal L - Last Filed: 09/08/18 13:03> Subjective - Date & Time of Evaluation Date of Evaluation: 09/08/18 Time of Evaluation: 07:07 - Subjective Subjective: Resident Progress Note for Hospitalist Service Patient examined at bedside. She is resting comfortably in bed in no acute distress. Patient is now DNR/DNI and terminally extubated. Comfort measures provided including morphine. Family members are present at bedside. All questions and concerns were addressed. Objective - Vital Signs/Intake and Output Vital Signs (last 24 hours): Temp Pulse Resp BP Pulse Ox 97.9 F 102 H 20 122/67 98 09/08/18 00:00 09/08/18 02:00 09/08/18 00:00 09/08/18 00:00 09/08/18 00:00 Intake and Output: 09/08/18 09/08/18 06:59 18:59 Intake Total 115 Balance 115 - Medications Medications: Current Medications Albuterol/Ipratropium (Duoneb 3 Mg/0.5 Mg (3 Ml) Ud) 3 ml IH [id number] [facility] Last Admin: 09/08/18 03:56 Dose: 3 ml Aspirin (Aspirin Chewable) 81 mg NG DAILY [facility] Last Admin: 09/07/18 09:39 Dose: 81 mg Carvedilol (Coreg) 3.125 mg PO BID [facility] Last Admin: 09/07/18 17:10 Dose: Not Given Clopidogrel Bisulfate (Plavix) 75 mg NG DAILY [facility] Last Admin: 09/05/18 12:15 Dose: 75 mg Furosemide (Lasix) 40 mg IVP BID [facility] Last Admin: 09/07/18 17:10 Dose: 40 mg Heparin Sodium (Porcine) (Heparin) 5,000 units SC Q8 [facility]; Protocol Last Admin: 09/08/18 05:50 Dose: 5,000 units Hydrocortisone Sodium Succinate (Solu-Cortef) 50 mg IVP Q12 [facility] Last Admin: 09/07/18 22:37 Dose: 50 mg Propofol (Diprivan) 1,000 mg in 100 mls @ 1.445 mls/hr IV .Q24H PRN; Protocol PRN Reason: TITRATE PER MD ORDER Last Titration: 09/08/18 02:05 Dose: 40 mcg/kg/min, 11.561 mls/hr Insulin Human Regular (Humulin R Low) 0 units SC Q6H [facility]; Protocol Last Admin: 09/08/18 00:00 Dose: Not Given Morphine Sulfate (Morphine) 4 mg IVP Q4H PRN PRN Reason: Pain, moderate (4-7) Last Admin: 09/08/18 02:59 Dose: 4 mg Ondansetron HCl (Zofran Inj) 4 mg IVP Q6 PRN PRN Reason: Nausea/Vomiting Pantoprazole Sodium (Protonix Inj) 40 mg IVP DAILY [facility] Last Admin: 09/07/18 09:38 Dose: 40 mg - Labs Labs: 09/07/18 06:00 09/07/18 06:00 PT 13.6 SECONDS (9.4-12.5) H 09/01/18 21:00 INR 1.19 09/01/18 21:00 APTT 60.2 Seconds (25.1-36.5) H 09/05/18 06:00 - Additional Findings Additional findings: - Constitutional Appears: Non-toxic, No Acute Distress - Head Exam Head Exam: ATRAUMATIC, NORMOCEPHALIC - Eye Exam Eye Exam: Normal appearance, PERRL - ENT Exam ENT Exam: Mucous Membranes Moist - Respiratory Exam Respiratory Exam: Rales, NORMAL BREATHING PATTERN. absent: Accessory Muscle Use, Respiratory Distress - Cardiovascular Exam Cardiovascular Exam: Tachycardia, RRR, +S1, +S2 - GI/Abdominal Exam GI & Abdominal Exam: Soft, Normal Bowel Sounds. absent: Distended, Firm, Rigid - Extremities Exam Extremities Exam: Normal Capillary Refill, Pedal Edema Additional comments: +1 pitting edema - Skin Skin Exam: Dry, Intact, Normal Color Assessment and Plan - Assessment and Plan (Free Text) Assessment: 73 year old female with past medical history of unspecified lung cancer with unspecified chemotherapy that she has been receiving since being diagnosed in March 2018, hypertension, COPD, cardiac myxoma, and asthma presents with shortness of breath and chest pain found to have NSTEMI with cardiogenic shock and hypoxic respiratory failure requiring intubation. Patient failed previous weaning trials, now terminally extubated. Plan: Hypoxic respiratory failure - Likely due to cardiogenic shock - patient failed multiple weaning trials - CXR shows worsening vascular congestion - BNP on 09/01 was 9330 - Echo on 09/03/18 showed EF of 25%, mild to moderate pulm HTN, midl to moderate TR - hydrocortisone, lasix, duonebs, tube feeds discontinued - Heme/onc consulted. NSTEMI - EKG: sinus tachycardia with ST depressions in V5 and V6 with heart rate of 141 - ECHO on 09/03/18 showed EF 25%, trace AR, mild to moderate TR and pulmonary hypertension, trace pericardial effusion - no longer on pressors - troponins trending down - heparin drip, carvedilol, ASA, plavix discontinued - Cardiology consulted. Recommend conservative management. SIRS - most likely secondary to cardiogenic shock - afebrile, no leukocytosis - lactate trending down - Doxycycline, merrem discontinued - procal wnl, Blood Cultures neg x2, UA unremarkable - ID consulted. Anemia - downtrend possibly due to plavix - no sign of active bleeding ARF - resolved - likely pre-renal due to cardiogenic shock h/o HTN - meds discontinued Case discussed with Dr. Bud Mcneal PGY-1 <Zenia Farrell - Last Filed: 09/10/18 11:22> Objective - Vital Signs/Intake and Output Vital Signs (last 24 hours): Temp Pulse Resp BP Pulse Ox 98.4 F 120 H 12 123/68 88 L 09/08/18 08:00 09/09/18 21:23 09/09/18 22:05 09/08/18 08:00 09/09/18 20:00 Intake and Output: 09/10/18 09/10/18 06:59 18:59 Intake Total 20 Balance 20 - Labs Labs: 09/07/18 06:00 09/07/18 06:00 PT 13.6 SECONDS (9.4-12.5) H 09/01/18 21:00 INR 1.19 09/01/18 21:00 APTT 60.2 Seconds (25.1-36.5) H 09/05/18 06:00 Attending/Attestation - Attestation I have personally seen and examined this patient.: Yes I have fully participated in the care of the patient.: Yes I have reviewed all pertinent clinical information, including history, physical exam and plan: Yes Notes (Text): 09/10/18 11:22 Medical record note made by the resident after discussion with my direction and input after the patient was personally seen and examined by me. I have reviewed the chart and agree that the record accurately reflects by personal performance of the history, physical exam, data review, and medical decision-making, in the course for the patient. I have also personally directed the plan of care. 73 year old female with PMH of cancer with hypertension, COPD, cardiac myxoma, and asthma presents with shortness of breath and chest pain found to have NSTEMI with cardiogenic shock and hypoxic respiratory failure requiring intubation. Patient was on multiple pressor and dobutamine infusion. Patient failed previous weaning trials, now terminally extubated as per family wishes. Patient is on comfort measures. We will continue supportive care. Prognosis is guarded.
[2018-09-08] MEDS ORDERED: Morphine 2 mg/ml ISec IVP ONE (07:30)
[2018-09-08] MEDS: Morphine PCA 1 mg/ml (30ml) 30 ML IV PRN ×2 (07:53→22:21)
--- NOTE | 2018-09-08 07:55 | RAD ---
Date of service: 09/08/2018 HISTORY: intubated COMPARISON: Portable chest 09/07/2017. FINDINGS: LUNGS: Endotracheal tube is unchanged in position with right MediPort and right center venous line unchanged in position as well. Nasogastric tube however has been retracted and terminates at the upper mid mediastinum, likely in upper esophagus. Advancement antegrade into the stomach is advised follow-up by confirmation radiography. Diffuse reticular infiltrates persist suggestive of either prominent atypical pneumonitis or advanced CHF. Pulmonary vascular congestion remains suggested favoring CHF. Trace of pleural effusion present. None is seen at the right. No pneumothorax bilaterally. PLEURA: As above. CARDIOVASCULAR: Calcific atherosclerotic changes are seen related to the thoracic aorta. Normal cardiac size. See lung section above as well. OSSEOUS STRUCTURES: No significant abnormalities. VISUALIZED UPPER ABDOMEN: Normal. OTHER FINDINGS: None. IMPRESSION: Interval worsening of likely CHF pattern though atypical pneumonitis is not completely excluded bilaterally. Support tubes and catheters appear stable with exception of the nasogastric tube which terminates at the upper esophagus. Advancement into the stomach followed by confirmation radiography is recommended.
[2018-09-08] MEDS ORDERED: Albuterol-Ipratrop 3 mg / 0.5 (3 ml) UD IH PRN (08:04)
[2018-09-08 10:10] VITALS: TEMP 98.4
[2018-09-08 11:04] VITALS: BP 123/68
--- NOTE | 2018-09-08 13:08 | PN ---
DATE: 09/08/2018 SUBJECTIVE: The patient is seen earlier this morning, the patient is in poor condition. She is for possible terminal extubation today. PHYSICAL EXAMINATION: VITAL SIGNS: Temperature is 98, blood pressure is 102/50, respiratory rate on the vent, heart rate of 108. HEENT: Unremarkable. NECK: Supple. LUNGS: Have decreased breath sounds. HEART: Normal S1, S2. ABDOMEN: Soft. LABORATORY EXAMINATIONS: Reviewed. ASSESSMENT AND PLAN: This is a 73-year-old female who was with systemic inflammatory response syndrome, cardiogenic shock, respiratory failure, [id number] myocardial infarction, negative procalcitonin, off of antibiotics, cardiac myxoma. The patient is for terminal extubation today and we will supportive care. We will follow. Sal Jones MD
--- NOTE | 2018-09-08 13:48 | CP.CCUPN ---
<Wilver Queen - Last Filed: 09/08/18 13:40> CCU Subjective - Physician Review Subjective (Free Text): Wilver Queen Internal Medicine Resident- Progress Note on Behalf of Critical Care Team Subjective: Patient seen and examined at bedside. No acute events overnight. Patient is sedated. Further subjective data cannot be ascertained at this time. 12 point ROS cannot be ascertained Physical Examination: - Constitutional Appears: no acute distress - Head Exam Head Exam: ATRAUMATIC, NORMAL INSPECTION, NORMOCEPHALIC - Eye Exam Eye Exam: PERRL - ENT Exam ENT Exam: Mucous Membranes Moist - Respiratory Exam Respiratory Exam: rales bilaterally - Cardiovascular Exam Cardiovascular Exam: RRR, REGULAR RHYTHM - GI/Abdominal Exam GI & Abdominal Exam: Normal Bowel Sounds, Soft. absent: Tenderness - Extremities Exam Extremities exam: no clubbing, no cyanosis - Neurological Exam Neurological exam: sedated - Skin Skin Exam: Dry, Intact Assessment and Plan: Patient is a 73 year old female with past medical history of lung cancer, hypertension, COPD, cardiac myxoma, and asthma who was admitted for evaluation and treatment of shortness of breath and chest pain. Developed hypoxemic respiratory failure. Intubated for airway protection. Patient was transferred to the ICU for further management. Patient failed weaning trial multiple times. Palliative care consulted. Extensive conversation with family conducted. Family requests terminal extubation. Patient is now terminally extubated. Comfort measures provided including morphine drip and propofol. Patient seen, case discussed with, and plan approved by attending physician Dr. Childress. CCU Objective - Vital Signs / Intake & Output Vital Signs (Last 4 hours): Vital Signs Pulse Resp Pulse Ox 09/08/18 12:00 102 H 26 H 71 L 09/08/18 10:00 106 H 30 H 72 L Intake and Output (Last 8hrs): Intake & Output 09/07/18 09/08/18 09/08/18 22:59 06:59 14:59 Intake Total 691 727 85 Output Total 2400 1600 Balance -1709 -873 85 Weight 105 lb 8 oz Intake: IV 221 727 85 Right Internal Jugular 490 propofol 121 122 Tube Feeding 270 Other 200 Output: Urine 2400 1600 Urethral (Reyes) 2400 1600 Emesis 0 Other: # Bowel Movements 0 - Physical Exam Head: Positive for: Atraumatic, Normocephalic Pupils: Positive for: PERRL Extroacular Muscles: Positive for: EOMI Conjunctiva: Positive for: Normal Mouth: Positive for: Moist Mucous Membranes Neck: Positive for: Normal Range of Motion Respiratory/Chest: Positive for: Decreased Breath Sounds, Rhonchi (Rhonchi bilaterally), Tachypneic Cardiovascular: Positive for: Normal S1, S2, Tachycardic. Negative for: Murmurs Abdomen: Negative for: Tenderness, Distention, Peritoneal Signs Upper Extremity: Positive for: Normal Inspection. Negative for: Cyanosis, Edema Lower Extremity: Positive for: Normal Inspection. Negative for: Edema Neurological: Positive for: GCS=15, CN II-XII Intact Skin: Positive for: Warm, Dry, Normal Color. Negative for: Rashes Psychiatric: Positive for: Alert, Oriented x 3 - Medications Active Medications: Active Medications Generic Name Dose Route Start Last Admin Trade Name Freq PRN Reason Stop Dose Admin Albuterol/Ipratropium 3 ml 09/08/18 08:04 Duoneb 3 Mg/0.5 Mg (3 Ml) Ud IH [id number] PRN Shortness of Breath Morphine Sulfate 30 mls @ 2 mls/hr 09/08/18 07:21 09/08/18 07:53 Morphine Brine Well Operator 1 Mg/Ml IV 2 mg/hr PRN PRN 2 mls/hr MANAGER SERVICES PER MD ORDER Administration Protocol 2 MG/HR Propofol 1,000 mg in 100 mls @ 1.436 mls/hr 09/08/18 08:59 Diprivan IV .Q24H PRN TITRATE PER MD ORDER Protocol 5 MCG/KG/MIN Morphine Sulfate 4 mg 09/02/18 20:20 09/08/18 02:59 Morphine IVP 4 mg Q4H PRN Administration Pain, moderate (4-7) - Patient Studies Lab Studies: Lab Studies 09/08/18 09/08/18 09/08/18 Range/Units 06:14 06:00 05:30 pCO2 35 (35-45) mm/Hg pO2 96.0 (80-100) mm/Hg HCO3 24.3 (21-28) mmol/L ABG pH 7.45 (7.35-7.45) ABG Total CO2 25.4 (22-28) mmol.L ABG O2 Saturation 99.4 H (95-98) % ABG O2 Content 12.1 L (15-23) ML/dl ABG Base Excess 0.5 (-2.0-3.0) mmol/L ABG Hemoglobin 8.8 L (11.7-17.4) g/dL ABG Carboxyhemoglobin 2.5 H (0.5-1.5) % POC ABG HHb (Measured) 0.6 (0-5) % ABG Methemoglobin 0.5 (0.0-3.0) % ABG O2 Capacity 12.2 L (16-24) mL/dl Hgb O2 Saturation 96.4 (95.0-98.0) % FiO2 100.0 % POC Glucose (mg/dL) 235 H (65-110) mg/dL Phosphorus 3.9 (2.5-4.5) mg/dL Magnesium 1.8 (1.7-2.2) mg/dL 09/07/18 09/07/18 09/07/18 Range/Units 23:45 18:03 11:55 pCO2 (35-45) mm/Hg pO2 (80-100) mm/Hg HCO3 (21-28) mmol/L ABG pH (7.35-7.45) ABG Total CO2 (22-28) mmol.L ABG O2 Saturation (95-98) % ABG O2 Content (15-23) ML/dl ABG Base Excess (-2.0-3.0) mmol/L ABG Hemoglobin (11.7-17.4) g/dL ABG Carboxyhemoglobin (0.5-1.5) % POC ABG HHb (Measured) (0-5) % ABG Methemoglobin (0.0-3.0) % ABG O2 Capacity (16-24) mL/dl Hgb O2 Saturation (95.0-98.0) % FiO2 % POC Glucose (mg/dL) 183 H 198 H 126 H (65-110) mg/dL Phosphorus (2.5-4.5) mg/dL Magnesium (1.7-2.2) mg/dL Laboratory Results - last 24 hr 09/07/18 09/07/18 09/07/18 11:55 18:03 23:45 pCO2 pO2 HCO3 ABG pH ABG Total CO2 ABG O2 Saturation ABG O2 Content ABG Base Excess ABG Hemoglobin ABG Carboxyhemoglobin POC ABG HHb (Measured) ABG Methemoglobin ABG O2 Capacity Hgb O2 Saturation FiO2 POC Glucose (mg/dL) 126 H 198 H 183 H Phosphorus Magnesium 09/08/18 09/08/18 09/08/18 05:30 06:00 06:14 pCO2 35 pO2 96.0 HCO3 24.3 ABG pH 7.45 ABG Total CO2 25.4 ABG O2 Saturation 99.4 H ABG O2 Content 12.1 L ABG Base Excess 0.5 ABG Hemoglobin 8.8 L ABG Carboxyhemoglobin 2.5 H POC ABG HHb (Measured) 0.6 ABG Methemoglobin 0.5 ABG O2 Capacity 12.2 L Hgb O2 Saturation 96.4 FiO2 100.0 POC Glucose (mg/dL) 235 H Phosphorus 3.9 Magnesium 1.8 Radiology Impressions: Radiology Impressions Chest X-Ray 09/08/18 06:00 IMPRESSION: Interval worsening of likely CHF pattern though atypical pneumonitis is not completely excluded bilaterally. Support tubes and catheters appear stable with exception of the nasogastric tube which terminates at the upper esophagus. Advancement into the stomach followed by confirmation radiography is recommended. Fingerstick Blood Sugar Results: 183 Critical Care Progress Note - Nutrition Nutrition: Nutrition Category Date Time Status NPO Diet [DIET] Diets 09/02/18 Breakfast Ordered <Mayank Childress - Last Filed: 09/08/18 17:26> CCU Objective - Vital Signs / Intake & Output Vital Signs (Last 4 hours): Vital Signs Pulse Resp Pulse Ox 09/08/18 16:00 82 23 81 L 09/08/18 14:00 91 H 23 82 L Intake and Output (Last 8hrs): Intake & Output 09/08/18 09/08/18 09/08/18 06:59 14:59 22:59 Intake Total 727 85 Output Total 1600 Balance -873 85 Weight 47.854 kg Intake: IV 727 85 Right Internal Jugular 490 propofol 122 Output: Urine 1600 Urethral (Reyes) 1600 - Medications Active Medications: Active Medications Generic Name Dose Route Start Last Admin Trade Name Freq PRN Reason Stop Dose Admin Albuterol/Ipratropium 3 ml 09/08/18 08:04 Duoneb 3 Mg/0.5 Mg (3 Ml) Ud IH [id number] PRN Shortness of Breath Morphine Sulfate 30 mls @ 2 mls/hr 09/08/18 07:21 09/08/18 07:53 Morphine Brine Well Operator 1 Mg/Ml IV 2 mg/hr PRN PRN 2 mls/hr MANAGER SERVICES PER MD ORDER Administration Protocol 2 MG/HR Propofol 1,000 mg in 100 mls @ 1.436 mls/hr 09/08/18 08:59 09/08/18 16:43 Diprivan IV 40 mcg/kg/min .Q24H PRN 11.485 mls/hr TITRATE PER MD ORDER Administration Protocol 5 MCG/KG/MIN Morphine Sulfate 4 mg 09/02/18 20:20 09/08/18 02:59 Morphine IVP 4 mg Q4H PRN Administration Pain, moderate (4-7) - Patient Studies Lab Studies: Lab Studies 09/08/18 09/08/18 09/08/18 Range/Units 06:14 06:00 05:30 pCO2 35 (35-45) mm/Hg pO2 96.0 (80-100) mm/Hg HCO3 24.3 (21-28) mmol/L ABG pH 7.45 (7.35-7.45) ABG Total CO2 25.4 (22-28) mmol.L ABG O2 Saturation 99.4 H (95-98) % ABG O2 Content 12.1 L (15-23) ML/dl ABG Base Excess 0.5 (-2.0-3.0) mmol/L ABG Hemoglobin 8.8 L (11.7-17.4) g/dL ABG Carboxyhemoglobin 2.5 H (0.5-1.5) % POC ABG HHb (Measured) 0.6 (0-5) % ABG Methemoglobin 0.5 (0.0-3.0) % ABG O2 Capacity 12.2 L (16-24) mL/dl Hgb O2 Saturation 96.4 (95.0-98.0) % FiO2 100.0 % POC Glucose (mg/dL) 235 H (65-110) mg/dL Phosphorus 3.9 (2.5-4.5) mg/dL Magnesium 1.8 (1.7-2.2) mg/dL 09/07/18 09/07/18 Range/Units 23:45 18:03 pCO2 (35-45) mm/Hg pO2 (80-100) mm/Hg HCO3 (21-28) mmol/L ABG pH (7.35-7.45) ABG Total CO2 (22-28) mmol.L ABG O2 Saturation (95-98) % ABG O2 Content (15-23) ML/dl ABG Base Excess (-2.0-3.0) mmol/L ABG Hemoglobin (11.7-17.4) g/dL ABG Carboxyhemoglobin (0.5-1.5) % POC ABG HHb (Measured) (0-5) % ABG Methemoglobin (0.0-3.0) % ABG O2 Capacity (16-24) mL/dl Hgb O2 Saturation (95.0-98.0) % FiO2 % POC Glucose (mg/dL) 183 H 198 H (65-110) mg/dL Phosphorus (2.5-4.5) mg/dL Magnesium (1.7-2.2) mg/dL Laboratory Results - last 24 hr 09/07/18 09/07/18 09/08/18 18:03 23:45 05:30 pCO2 35 pO2 96.0 HCO3 24.3 ABG pH 7.45 ABG Total CO2 25.4 ABG O2 Saturation 99.4 H ABG O2 Content 12.1 L ABG Base Excess 0.5 ABG Hemoglobin 8.8 L ABG Carboxyhemoglobin 2.5 H POC ABG HHb (Measured) 0.6 ABG Methemoglobin 0.5 ABG O2 Capacity 12.2 L Hgb O2 Saturation 96.4 FiO2 100.0 POC Glucose (mg/dL) 198 H 183 H Phosphorus Magnesium 09/08/18 09/08/18 06:00 06:14 pCO2 pO2 HCO3 ABG pH ABG Total CO2 ABG O2 Saturation ABG O2 Content ABG Base Excess ABG Hemoglobin ABG Carboxyhemoglobin POC ABG HHb (Measured) ABG Methemoglobin ABG O2 Capacity Hgb O2 Saturation FiO2 POC Glucose (mg/dL) 235 H Phosphorus 3.9 Magnesium 1.8 Radiology Impressions: Radiology Impressions Chest X-Ray 09/08/18 06:00 IMPRESSION: Interval worsening of likely CHF pattern though atypical pneumonitis is not completely excluded bilaterally. Support tubes and catheters appear stable with exception of the nasogastric tube which terminates at the upper esophagus. Advancement into the stomach followed by confirmation radiography is recommended. Critical Care Progress Note - Nutrition Nutrition: Nutrition Category Date Time Status NPO Diet [DIET] Diets 09/02/18 Breakfast Ordered Addendum Addendum: 09/08/18 17:24 ICU Attending Addendum Patient seen and examined. Case reviewed on round with housestaff. Agree with resident note above with the following additions/exceptions: 73 year old female with past medical history of lung cancer, hypertension, COPD, cardiac myxoma, and asthma admitted for CHF exasc requiring intubated pt requiring more oxygen now up to 100% fio2 despite diuresis -4.5L; EF 29 extubated to comfort this AM morphine for comfort comfort measures only DNR DNI Rest of care as above Mayank Childress MD Pulmonary Critical Care and Sleep Medicine
[2018-09-08] MEDS ORDERED: Albuterol-Ipratrop 3 mg / 0.5 (3 ml) UD IH SCH (14:00)
--- NOTE | 2018-09-09 06:51 | CP.PCM.PN ---
<Brock Mcneal L - Last Filed: 09/09/18 13:47> Subjective - Date & Time of Evaluation Date of Evaluation: 09/09/18 Time of Evaluation: 06:51 - Subjective Subjective: Resident Progress Note for Hospitalist Service Patient examined at bedside. Patient is s/p extubation, DNR/DNI now on comfort measures of morphine drip and scopalamine patch. Family present at bedside, expressed no concerns. Plan for transfer out of ICU. Objective - Vital Signs/Intake and Output Vital Signs (last 24 hours): Temp Pulse Resp BP Pulse Ox 98.4 F 106 H 27 H 123/68 86 L 09/08/18 08:00 09/09/18 06:00 09/09/18 04:00 09/08/18 08:00 09/09/18 04:00 Intake and Output: 09/08/18 09/09/18 18:59 06:59 Intake Total 239 282 Output Total 450 Balance -211 282 - Medications Medications: Current Medications Albuterol/Ipratropium (Duoneb 3 Mg/0.5 Mg (3 Ml) Ud) 3 ml IH [id number] PRN PRN Reason: Shortness of Breath Morphine Sulfate (Morphine Road Inspector 1 Mg/Ml) 30 mls @ 2 mls/hr IV PRN PRN; Protocol PRN Reason: FINISH REMOVER PER MD ORDER Last Admin: 09/08/18 22:21 Dose: 2 mg/hr, 2 mls/hr Propofol (Diprivan) 1,000 mg in 100 mls @ 1.436 mls/hr IV .Q24H PRN; Protocol PRN Reason: TITRATE PER MD ORDER Last Admin: 09/08/18 23:39 Dose: 40 mcg/kg/min, 11.485 mls/hr Morphine Sulfate (Morphine) 4 mg IVP Q4H PRN PRN Reason: Pain, moderate (4-7) Last Admin: 09/08/18 02:59 Dose: 4 mg - Labs Labs: 09/07/18 06:00 09/07/18 06:00 PT 13.6 SECONDS (9.4-12.5) H 09/01/18 21:00 INR 1.19 09/01/18 21:00 APTT 60.2 Seconds (25.1-36.5) H 09/05/18 06:00 - Additional Findings Additional findings: - Constitutional Appears: Non-toxic, No Acute Distress - Head Exam Head Exam: ATRAUMATIC, NORMOCEPHALIC - Eye Exam Eye Exam: Normal appearance - ENT Exam ENT Exam: Mucous Membranes Moist - Respiratory Exam Respiratory Exam: NORMAL BREATHING PATTERN. absent: Accessory Muscle Use, Respiratory Distress - Cardiovascular Exam Cardiovascular Exam: RRR, +S1, +S2 - GI/Abdominal Exam GI & Abdominal Exam: Soft. absent: Distended, Firm, Rigid - Skin Skin Exam: Dry, Intact, Normal Color Assessment and Plan - Assessment and Plan (Free Text) Assessment: 73 year old female with past medical history of unspecified lung cancer with unspecified chemotherapy that she has been receiving since being diagnosed in March 2018, hypertension, COPD, cardiac myxoma, and asthma presents with shortness of breath and chest pain found to have NSTEMI with cardiogenic shock and hypoxic respiratory failure requiring intubation. Patient failed previous weaning trials, now terminally extubated. Plan: Hypoxic respiratory failure - Likely due to cardiogenic shock - patient failed multiple weaning trials - CXR shows worsening vascular congestion - BNP on 09/01 was 9330 - Echo on 09/03/18 showed EF of 25%, mild to moderate pulm HTN, midl to moderate TR - hydrocortisone, lasix, duonebs, tube feeds discontinued - Heme/onc consulted. NSTEMI - EKG: sinus tachycardia with ST depressions in V5 and V6 with heart rate of 141 - ECHO on 09/03/18 showed EF 25%, trace AR, mild to moderate TR and pulmonary hypertension, trace pericardial effusion - no longer on pressors - troponins trending down - heparin drip, carvedilol, ASA, plavix discontinued - Cardiology consulted. Recommend conservative management. SIRS - most likely secondary to cardiogenic shock - afebrile, no leukocytosis - lactate trending down - Doxycycline, merrem discontinued - procal wnl, Blood Cultures neg x2, UA unremarkable - ID consulted. Anemia - downtrend possibly due to plavix - no sign of active bleeding ARF - resolved - likely pre-renal due to cardiogenic shock h/o HTN - meds discontinued Case discussed with Dr. Bud Mcneal PGY-1 <Zenia Farrell - Last Filed: 09/10/18 11:21> Objective - Vital Signs/Intake and Output Vital Signs (last 24 hours): Temp Pulse Resp BP Pulse Ox 98.4 F 120 H 12 123/68 88 L 09/08/18 08:00 09/09/18 21:23 09/09/18 22:05 09/08/18 08:00 09/09/18 20:00 Intake and Output: 09/10/18 09/10/18 06:59 18:59 Intake Total 20 Balance 20 - Labs Labs: 09/07/18 06:00 09/07/18 06:00 PT 13.6 SECONDS (9.4-12.5) H 09/01/18 21:00 INR 1.19 09/01/18 21:00 APTT 60.2 Seconds (25.1-36.5) H 09/05/18 06:00 Attending/Attestation - Attestation I have personally seen and examined this patient.: Yes I have fully participated in the care of the patient.: Yes I have reviewed all pertinent clinical information, including history, physical exam and plan: Yes Notes (Text): 09/10/18 11:16 Medical record note made by the resident after discussion with my direction and input after the patient was personally seen and examined by me. I have reviewed the chart and agree that the record accurately reflects by personal performance of the history, physical exam, data review, and medical decision-making, in the course for the patient. I have also personally directed the plan of care. 73 year old female with PMH of cancer with hypertension, COPD, cardiac myxoma, and asthma presents with shortness of breath and chest pain found to have NSTEMI with cardiogenic shock and hypoxic respiratory failure requiring intubation. Patient was on multiple pressor and dobutamine infusion. Patient failed previous weaning trials, now terminally extubated as per family wishes. Patient is on comfort measures. We will continue supportive care. Prognosis is guarded.
[2018-09-09] MEDS: Propofol 10 mg/ml 1,000 MG/100 ML VIAL IV PRN (08:27)
[2018-09-09] MEDS: Morphine PCA 1 mg/ml (30ml) 30 ML IV PRN ×3 (11:12→20:22)
--- NOTE | 2018-09-09 14:39 | CP.PCM.PN ---
Subjective - Date & Time of Evaluation Date of Evaluation: 09/09/18 Time of Evaluation: 14:30 - Subjective Subjective: Patient has been terminally extubated, no fevers, lethargic. Objective - Vital Signs/Intake and Output Vital Signs (last 24 hours): Temp Pulse Resp BP Pulse Ox 98.4 F 123 H 26 H 123/68 87 L 09/08/18 08:00 09/09/18 14:00 09/09/18 14:00 09/08/18 08:00 09/09/18 14:00 Intake and Output: 09/09/18 09/09/18 06:59 18:59 Intake Total 282 130 Balance 282 130 - Medications Medications: Current Medications Albuterol/Ipratropium (Duoneb 3 Mg/0.5 Mg (3 Ml) Ud) 3 ml IH [id number] PRN PRN Reason: Shortness of Breath Morphine Sulfate (Morphine Slitter Processed Film 1 Mg/Ml) 30 mls @ 4 mls/hr IV PRN PRN; Protocol PRN Reason: [employer] SALES REPRESENTATIVE PER MD ORDER Last Admin: 09/09/18 12:32 Dose: 4 mg/hr, 4 mls/hr Lorazepam (Ativan) 1 mg IVP Q12 PRN; Protocol PRN Reason: Agitation Scopolamine (Transderm-Scop) 1 patch TD Q3D FLIP Last Admin: 09/09/18 11:25 Dose: 1 patch - Labs Labs: 09/07/18 06:00 09/07/18 06:00 PT 13.6 SECONDS (9.4-12.5) H 09/01/18 21:00 INR 1.19 09/01/18 21:00 APTT 60.2 Seconds (25.1-36.5) H 09/05/18 06:00 - Constitutional Appears: Chronically Ill - Head Exam Head Exam: NORMAL INSPECTION - Respiratory Exam Respiratory Exam: Decreased Breath Sounds - Cardiovascular Exam Cardiovascular Exam: +S1, +S2 - GI/Abdominal Exam GI & Abdominal Exam: Soft. absent: Tenderness Assessment and Plan - Assessment and Plan (Free Text) Plan: Assessment S/P systemic inflammatory response syndrome probably with cardiogenic shock and VDRF due to acute NSTEMI - now terminally extubated acute renal failure lung cancer HTN COPD history of cardiac myxoma Plan patient is now off antibiotics, DNR/DNI and for comfort care only
[2018-09-09 21:37] VITALS: PULSE 120
--- NOTE | 2018-09-09 21:57 | CP.PCM.PRO ---
Pronouncement of Note - Clinical Findings Physical Exam: No Response Verbal/Painful Stimuli, Absent Peripheral Puls es{Carotid & Femoral}, Absent Heart & Breath Sounds, Absence of Vital Signs - Pronouncement Time Time of Pronouncement of : 21:45 - Notifications Pronouncement Notifications: Family Notified, Atending Notified - N.Mc Certificate [place]ED[place] Number: [id number]
[2018-09-09 23:28] VITALS: RESP 12; O2SAT 88
--- NOTE | 2018-09-10 11:26 | CP.PCM.DIS ---
<Rhea Nixon - Last Filed: 09/10/18 14:56> Provider - Provider Date of Admission: 09/01/18 22:23 Attending physician: Zenia Farrell MD Primary care physician: Sofía Gomes DO Consults: 09/01/18 23:34 Physician Consult Routine Comment: Consulting Provider: Jason Sánchez Consulting Physician: Jason Sánchez Reason for Consult: lung cancer stage IV 09/01/18 23:35 Physician Consult Stat Comment: Consulting Provider: Gregg Hammonds Consulting Physician: Gregg Hammonds Reason for Consult: NSTEMI 09/02/18 06:47 Palliative Care Consult Routine Comment: Consulting Provider: Pam Vogel Physician Instructions: Reason For Exam: lung CA 09/02/18 07:26 Physician Consult Routine Comment: Consulting Provider: Omar Jefferson Consulting Physician: Omar Jefferson Reason for Consult: sepsis Time Spent in preparation of Discharge (in minutes): 35 Hospital Course - Lab Results Lab Results: Micro Results 09/01/18 21:30 Blood Blood Culture - Final NO GROWTH AFTER 5 DAYS 09/01/18 21:30 Blood Gram Stain - Final TEST NOT PERFORMED 09/01/18 21:10 Blood Blood Culture - Final NO GROWTH AFTER 5 DAYS 09/01/18 21:10 Blood Gram Stain - Final TEST NOT PERFORMED 09/02/18 02:00 Nose MRSA Culture (Admit) - Final MRSA NOT DETECTED Most Recent Lab Values WBC 7.7 10^3/uL (4.5-11.0) D 09/07/18 06:00 RBC 2.82 10^6/uL (3.5-6.1) L 09/07/18 06:00 Hgb 8.0 g/dL (12.0-16.0) L 09/07/18 06:00 Hct 26.5 % (36.0-48.0) L 09/07/18 06:00 MCV 94.0 fl (80.0-105.0) 09/07/18 06:00 MCH 28.4 pg (25.0-35.0) 09/07/18 06:00 MCHC 30.2 g/dl (31.0-37.0) L 09/07/18 06:00 RDW 16.1 % (11.5-14.5) H 09/07/18 06:00 Plt Count 261 10^3/uL (120.0-450.0) 09/07/18 06:00 MPV 9.9 fl (7.0-11.0) 09/07/18 06:00 Gran % 82.1 % (50.0-68.0) H 09/07/18 06:00 Lymph % (Auto) 9.5 % (22.0-35.0) L 09/07/18 06:00 [place] % (Auto) 8.4 % (1.0-6.0) H 09/07/18 06:00 Eos % (Auto) 0.0 % (1.5-5.0) L 09/07/18 06:00 Baso % (Auto) 0.0 % (0.0-3.0) 09/07/18 06:00 Gran # 6.29 (1.4-6.5) 09/07/18 06:00 Lymph # (Auto) 0.7 (1.2-3.4) L 09/07/18 06:00 [place] # (Auto) 0.6 (0.1-0.6) 09/07/18 06:00 Eos # (Auto) 0.0 (0.0-0.7) 09/07/18 06:00 Baso # (Auto) 0.00 K/mm3 (0.0-2.0) 09/07/18 06:00 Neutrophils % (Manual) 90 % (50.0-70.0) H 09/03/18 05:00 Band Neutrophils % 1 % (0-2) 09/03/18 05:00 Lymphocytes % (Manual) 3 % (22.0-35.0) L 09/03/18 05:00 Monocytes % (Manual) 3 % (1.0-6.0) 09/03/18 05:00 Metamyelocytes % 2 % 09/03/18 05:00 Myelocytes % 1 % 09/03/18 05:00 Platelet Evaluation Normal (NORMAL) 09/03/18 05:00 PT 13.6 SECONDS (9.4-12.5) H 09/01/18 21:00 INR 1.19 09/01/18 21:00 APTT 60.2 Seconds (25.1-36.5) H 09/05/18 06:00 pCO2 35 mm/Hg (35-45) 09/08/18 05:30 pO2 96.0 mm/Hg (80-100) 09/08/18 05:30 HCO3 24.3 mmol/L (21-28) 09/08/18 05:30 ABG pH 7.45 (7.35-7.45) 09/08/18 05:30 ABG Total CO2 25.4 mmol.L (22-28) 09/08/18 05:30 ABG O2 Saturation 99.4 % (95-98) H 09/08/18 05:30 ABG O2 Content 12.1 ML/dl (15-23) L 09/08/18 05:30 ABG Base Excess 0.5 mmol/L (-2.0-3.0) 09/08/18 05:30 ABG Hemoglobin 8.8 g/dL (11.7-17.4) L 09/08/18 05:30 ABG Carboxyhemoglobin 2.5 % (0.5-1.5) H 09/08/18 05:30 POC ABG HHb (Measured) 0.6 % (0-5) 09/08/18 05:30 ABG Methemoglobin 0.5 % (0.0-3.0) 09/08/18 05:30 ABG O2 Capacity 12.2 mL/dl (16-24) L 09/08/18 05:30 ABG Potassium 4.8 mmol/L (3.6-5.2) 09/02/18 01:08 VBG pH 7.15 (7.32-7.43) L* 09/01/18 22:15 VBG pCO2 46.0 (40-60) 09/01/18 22:15 VBG HCO3 16.0 mmol/l (21-28) L 09/01/18 22:15 VBG Total CO2 17.4 mmol.L (22-28) L 09/01/18 22:15 VBG O2 Sat (Calc) 92.2 % (40-65) H 09/01/18 22:15 VBG Base Excess -12.6 mmol/L (0.0-2.0) L 09/01/18 22:15 VBG Potassium 5.0 mmol/L (3.6-5.2) 09/01/18 22:15 Hgb O2 Saturation 96.4 % (95.0-98.0) 09/08/18 05:30 Sodium 136.0 mmol/L (132-148) 09/02/18 01:08 Chloride 107.0 mmol/L (98-107) 09/02/18 01:08 Glucose 194 mg/dl (65-105) H 09/02/18 01:08 Lactate 2.8 mmol/L (0.7-2.1) H 09/02/18 01:08 FiO2 100.0 % 09/08/18 05:30 Inspiratory BiPAP 12 09/02/18 01:08 Sodium 148 mmol/L (132-148) 09/07/18 06:00 Potassium 3.7 mmol/L (3.6-5.0) 09/07/18 06:00 Chloride 117 mmol/L (98-107) H 09/07/18 06:00 Carbon Dioxide 26 mmol/L (21-33) 09/07/18 06:00 Anion Gap 9 (10-20) L 09/07/18 06:00 BUN 40 mg/dL (7-21) H 09/07/18 06:00 Creatinine 0.8 mg/dl (0.7-1.2) 09/07/18 06:00 Est GFR ( Amer) > 60 09/07/18 06:00 Est GFR (Non-Af Amer) > 60 09/07/18 06:00 POC Glucose (mg/dL) 235 mg/dL (65-110) H 09/08/18 06:14 Random Glucose 109 mg/dL (70-110) 09/07/18 06:00 Calcium 9.1 mg/dL (8.4-10.5) 09/07/18 06:00 Phosphorus 3.9 mg/dL (2.5-4.5) 09/08/18 06:00 Magnesium 1.8 mg/dL (1.7-2.2) 09/08/18 06:00 Total Bilirubin 0.7 mg/dL (0.2-1.3) 09/07/18 06:00 AST 32 U/L (14-36) 09/07/18 06:00 ALT 48 U/L (7-56) 09/07/18 06:00 Alkaline Phosphatase 54 U/L (38-126) 09/07/18 06:00 Lactate Dehydrogenase 590 U/L (333-699) 09/01/18 21:00 Total Creatine Kinase 145 U/L (35-230) 09/01/18 21:00 Troponin I 9.60 ng/mL H* 09/05/18 06:00 NT-Pro-B Natriuret Pep 9330 pg/mL (0-450) H 09/01/18 21:00 Total Protein 6.2 g/dL (5.8-8.3) 09/07/18 06:00 Albumin 3.0 g/dL (3.0-4.8) 09/07/18 06:00 Globulin 3.2 gm/dL 09/07/18 06:00 Albumin/Globulin Ratio 0.9 (1.1-1.8) L 09/07/18 06:00 Procalcitonin 0.39 NG/ML (0.19-0.49) 09/01/18 21:00 Arterial Blood Potassium 4.8 mmol/L (3.6-5.2) 09/02/18 01:08 Venous Blood Potassium 5.0 mmol/L (3.6-5.2) 09/01/18 22:15 Urine Color Yellow (YELLOW) 09/04/18 09:30 Urine Appearance Clear (CLEAR) 09/04/18 09:30 Urine pH 6.0 (4.7-8.0) 09/04/18 09:30 Ur Specific [place] >= 1.030 (1.005-1.035) 09/04/18 09:30 Urine Protein 30 mg/dL (<30 mg/dL) H 09/04/18 09:30 Urine Glucose (UA) Negative mg/dL (NEGATIVE) 09/04/18 09:30 Urine Ketones Negative mg/dL (NEGATIVE) 09/04/18 09:30 Urine Blood Negative (NEGATIVE) 09/04/18 09:30 Urine Nitrate Negative (NEGATIVE) 09/04/18 09:30 Urine Bilirubin Negative (NEGATIVE) 09/04/18 09:30 Urine Urobilinogen 0.2 E.U./dL (<1 E.U./dL) 09/04/18 09:30 Ur Leukocyte Esterase Negative Jairon/uL (NEGATIVE) 09/04/18 09:30 Urine RBC 0 - 2 /hpf (0-2) 09/04/18 09:30 Urine WBC 1 - 3 /hpf (0-6) 09/04/18 09:30 Ur Epithelial Cells 3 - 4 /hpf (0-5) 09/04/18 09:30 Amorphous Sediment Few /hpf (NONE) 09/04/18 09:30 Urine Bacteria Mod /hpf (NONE) 09/04/18 09:30 Hyaline Casts 0 - 2 /hpf (NONE) 09/04/18 09:30 Coarse Granular Casts Trace /hpf (NONE) 09/04/18 09:30 Vancomycin Trough < 5.0 ug/mL (5.0-10.0) L 09/01/18 21:00 Random Vancomycin 25.6 ug/mL (20-40) 09/03/18 05:00 Blood Type A POSITIVE 09/06/18 17:16 Blood Type Confirm A POSITIVE 09/06/18 17:46 Antibody Screen Negative 09/06/18 17:16 Crossmatch See Detail 09/06/18 17:16 BBK History Checked No verified bt 09/06/18 17:16 - Hospital Course Hospital Course: This is a 73 year old female with past medical history of unspecified lung cancer with unspecified chemotherapy that she has been receiving since being diagnosed in March 2018, hypertension, COPD, cardiac myxoma, and asthma who initially presented to the hospital with shortness of breath, chest pain and found to have NSTEMI with cardiogenic shock treated with heparin drip. She also had hypoxic respiratory failure requiring intubation and subsequently failed multiple weaning trials. Decision was made by family to terminally extubate patient after extensive discussion with medical care team and family and patient's family decided on DNI/DNR. Patient was put on comfort care measures including morphine drip and scopalamine patch and transferred out of ICU. Patient on 09/09/18. Discharge Exam - Additional Findings Additional findings: Defer to physical exam on pronoucement of : No Response Verbal/Painful Stimuli, Absent Peripheral Pulses{Carotid & Femoral}, Absent Heart & Breath Sounds, Absence of Vital Signs Discharge Plan - Follow Up Plan Condition: GUARDED Disposition: WITH WITHOUT AUTOPSY Referrals: Sofía Gomes DO [Primary Care Provider] - <Zenia Farrell - Last Filed: 09/10/18 15:28> Provider - Provider Date of Admission: 09/01/18 22:23 Attending physician: Zenia Farrell MD Primary care physician: Sofía Gomes DO Consults: 09/01/18 23:34 Physician Consult Routine Comment: Consulting Provider: Jason Sánchez Consulting Physician: Jason Sánchez Reason for Consult: lung cancer stage IV 09/01/18 23:35 Physician Consult Stat Comment: Consulting Provider: Gregg Hammonds Consulting Physician: Gregg Hammonds Reason for Consult: NSTEMI 09/02/18 06:47 Palliative Care Consult Routine Comment: Consulting Provider: Pam Vogel Physician Instructions: Reason For Exam: lung CA 09/02/18 07:26 Physician Consult Routine Comment: Consulting Provider: Omar Jefferson Consulting Physician: Omar Jefferson Reason for Consult: sepsis Hospital Course - Lab Results Lab Results: Micro Results 09/01/18 21:30 Blood Blood Culture - Final NO GROWTH AFTER 5 DAYS 09/01/18 21:30 Blood Gram Stain - Final TEST NOT PERFORMED 09/01/18 21:10 Blood Blood Culture - Final NO GROWTH AFTER 5 DAYS 09/01/18 21:10 Blood Gram Stain - Final TEST NOT PERFORMED 09/02/18 02:00 Nose MRSA Culture (Admit) - Final MRSA NOT DETECTED Most Recent Lab Values WBC 7.7 10^3/uL (4.5-11.0) D 09/07/18 06:00 RBC 2.82 10^6/uL (3.5-6.1) L 09/07/18 06:00 Hgb 8.0 g/dL (12.0-16.0) L 09/07/18 06:00 Hct 26.5 % (36.0-48.0) L 09/07/18 06:00 MCV 94.0 fl (80.0-105.0) 09/07/18 06:00 MCH 28.4 pg (25.0-35.0) 09/07/18 06:00 MCHC 30.2 g/dl (31.0-37.0) L 09/07/18 06:00 RDW 16.1 % (11.5-14.5) H 09/07/18 06:00 Plt Count 261 10^3/uL (120.0-450.0) 09/07/18 06:00 MPV 9.9 fl (7.0-11.0) 09/07/18 06:00 Gran % 82.1 % (50.0-68.0) H 09/07/18 06:00 Lymph % (Auto) 9.5 % (22.0-35.0) L 09/07/18 06:00 [place] % (Auto) 8.4 % (1.0-6.0) H 09/07/18 06:00 Eos % (Auto) 0.0 % (1.5-5.0) L 09/07/18 06:00 Baso % (Auto) 0.0 % (0.0-3.0) 09/07/18 06:00 Gran # 6.29 (1.4-6.5) 09/07/18 06:00 Lymph # (Auto) 0.7 (1.2-3.4) L 09/07/18 06:00 [place] # (Auto) 0.6 (0.1-0.6) 09/07/18 06:00 Eos # (Auto) 0.0 (0.0-0.7) 09/07/18 06:00 Baso # (Auto) 0.00 K/mm3 (0.0-2.0) 09/07/18 06:00 Neutrophils % (Manual) 90 % (50.0-70.0) H 09/03/18 05:00 Band Neutrophils % 1 % (0-2) 09/03/18 05:00 Lymphocytes % (Manual) 3 % (22.0-35.0) L 09/03/18 05:00 Monocytes % (Manual) 3 % (1.0-6.0) 09/03/18 05:00 Metamyelocytes % 2 % 09/03/18 05:00 Myelocytes % 1 % 09/03/18 05:00 Platelet Evaluation Normal (NORMAL) 09/03/18 05:00 PT 13.6 SECONDS (9.4-12.5) H 09/01/18 21:00 INR 1.19 09/01/18 21:00 APTT 60.2 Seconds (25.1-36.5) H 09/05/18 06:00 pCO2 35 mm/Hg (35-45) 09/08/18 05:30 pO2 96.0 mm/Hg (80-100) 09/08/18 05:30 HCO3 24.3 mmol/L (21-28) 09/08/18 05:30 ABG pH 7.45 (7.35-7.45) 09/08/18 05:30 ABG Total CO2 25.4 mmol.L (22-28) 09/08/18 05:30 ABG O2 Saturation 99.4 % (95-98) H 09/08/18 05:30 ABG O2 Content 12.1 ML/dl (15-23) L 09/08/18 05:30 ABG Base Excess 0.5 mmol/L (-2.0-3.0) 09/08/18 05:30 ABG Hemoglobin 8.8 g/dL (11.7-17.4) L 09/08/18 05:30 ABG Carboxyhemoglobin 2.5 % (0.5-1.5) H 09/08/18 05:30 POC ABG HHb (Measured) 0.6 % (0-5) 09/08/18 05:30 ABG Methemoglobin 0.5 % (0.0-3.0) 09/08/18 05:30 ABG O2 Capacity 12.2 mL/dl (16-24) L 09/08/18 05:30 ABG Potassium 4.8 mmol/L (3.6-5.2) 09/02/18 01:08 VBG pH 7.15 (7.32-7.43) L* 09/01/18 22:15 VBG pCO2 46.0 (40-60) 09/01/18 22:15 VBG HCO3 16.0 mmol/l (21-28) L 09/01/18 22:15 VBG Total CO2 17.4 mmol.L (22-28) L 09/01/18 22:15 VBG O2 Sat (Calc) 92.2 % (40-65) H 09/01/18 22:15 VBG Base Excess -12.6 mmol/L (0.0-2.0) L 09/01/18 22:15 VBG Potassium 5.0 mmol/L (3.6-5.2) 09/01/18 22:15 Hgb O2 Saturation 96.4 % (95.0-98.0) 09/08/18 05:30 Sodium 136.0 mmol/L (132-148) 09/02/18 01:08 Chloride 107.0 mmol/L (98-107) 09/02/18 01:08 Glucose 194 mg/dl (65-105) H 09/02/18 01:08 Lactate 2.8 mmol/L (0.7-2.1) H 09/02/18 01:08 FiO2 100.0 % 09/08/18 05:30 Inspiratory BiPAP 12 09/02/18 01:08 Sodium 148 mmol/L (132-148) 09/07/18 06:00 Potassium 3.7 mmol/L (3.6-5.0) 09/07/18 06:00 Chloride 117 mmol/L (98-107) H 09/07/18 06:00 Carbon Dioxide 26 mmol/L (21-33) 09/07/18 06:00 Anion Gap 9 (10-20) L 09/07/18 06:00 BUN 40 mg/dL (7-21) H 09/07/18 06:00 Creatinine 0.8 mg/dl (0.7-1.2) 09/07/18 06:00 Est GFR ( Amer) > 60 09/07/18 06:00 Est GFR (Non-Af Amer) > 60 09/07/18 06:00 POC Glucose (mg/dL) 235 mg/dL (65-110) H 09/08/18 06:14 Random Glucose 109 mg/dL (70-110) 09/07/18 06:00 Calcium 9.1 mg/dL (8.4-10.5) 09/07/18 06:00 Phosphorus 3.9 mg/dL (2.5-4.5) 09/08/18 06:00 Magnesium 1.8 mg/dL (1.7-2.2) 09/08/18 06:00 Total Bilirubin 0.7 mg/dL (0.2-1.3) 09/07/18 06:00 AST 32 U/L (14-36) 09/07/18 06:00 ALT 48 U/L (7-56) 09/07/18 06:00 Alkaline Phosphatase 54 U/L (38-126) 09/07/18 06:00 Lactate Dehydrogenase 590 U/L (333-699) 09/01/18 21:00 Total Creatine Kinase 145 U/L (35-230) 09/01/18 21:00 Troponin I 9.60 ng/mL H* 09/05/18 06:00 NT-Pro-B Natriuret Pep 9330 pg/mL (0-450) H 09/01/18 21:00 Total Protein 6.2 g/dL (5.8-8.3) 09/07/18 06:00 Albumin 3.0 g/dL (3.0-4.8) 09/07/18 06:00 Globulin 3.2 gm/dL 09/07/18 06:00 Albumin/Globulin Ratio 0.9 (1.1-1.8) L 09/07/18 06:00 Procalcitonin 0.39 NG/ML (0.19-0.49) 09/01/18 21:00 Arterial Blood Potassium 4.8 mmol/L (3.6-5.2) 09/02/18 01:08 Venous Blood Potassium 5.0 mmol/L (3.6-5.2) 09/01/18 22:15 Urine Color Yellow (YELLOW) 09/04/18 09:30 Urine Appearance Clear (CLEAR) 09/04/18 09:30 Urine pH 6.0 (4.7-8.0) 09/04/18 09:30 Ur Specific Jamies[place] >= 1.030 (1.005-1.035) 09/04/18 09:30 Urine Protein 30 mg/dL (<30 mg/dL) H 09/04/18 09:30 Urine Glucose (UA) Negative mg/dL (NEGATIVE) 09/04/18 09:30 Urine Ketones Negative mg/dL (NEGATIVE) 09/04/18 09:30 Urine Blood Negative (NEGATIVE) 09/04/18 09:30 Urine Nitrate Negative (NEGATIVE) 09/04/18 09:30 Urine Bilirubin Negative (NEGATIVE) 09/04/18 09:30 Urine Urobilinogen 0.2 E.U./dL (<1 E.U./dL) 09/04/18 09:30 Ur Leukocyte Esterase Negative Jairon/uL (NEGATIVE) 09/04/18 09:30 Urine RBC 0 - 2 /hpf (0-2) 09/04/18 09:30 Urine WBC 1 - 3 /hpf (0-6) 09/04/18 09:30 Ur Epithelial Cells 3 - 4 /hpf (0-5) 09/04/18 09:30 Amorphous Sediment Few /hpf (NONE) 09/04/18 09:30 Urine Bacteria Mod /hpf (NONE) 09/04/18 09:30 Hyaline Casts 0 - 2 /hpf (NONE) 09/04/18 09:30 Coarse Granular Casts Trace /hpf (NONE) 09/04/18 09:30 Vancomycin Trough < 5.0 ug/mL (5.0-10.0) L 09/01/18 21:00 Random Vancomycin 25.6 ug/mL (20-40) 09/03/18 05:00 Blood Type A POSITIVE 09/06/18 17:16 Blood Type Confirm A POSITIVE 09/06/18 17:46 Antibody Screen Negative 09/06/18 17:16 Crossmatch See Detail 09/06/18 17:16 BBK History Checked No verified bt 09/06/18 17:16 Attending/Attestation - Attestation I have fully participated in the care of the patient.: Yes I have reviewed all pertinent clinical information, including history, physical exam and plan: Yes Notes (Text): 09/10/18 15:27 Medical record note made by the resident after discussion with my direction and input after the patient was personally seen and examined by me. I have reviewed the chart and agree that the record accurately reflects by personal performance of the history, physical exam, data review, and medical decision-making, in the course for the patient. I have also personally directed the plan of care.
== END 2018-09-09 21:45 | DRG 870 ==
LOC: ED 21:04 → ERH 22:23 → ICU 09-02 00:20
PROVIDERS: ADMIT Hospitalist; ATTEND Internal Medicine
PROC: 5A1955Z Respiratory Ventilation, Greater than 96 Consecutive Hours (ICD-10-PCS; principal; 2018-09-02)
PROC: 0BH17EZ Insertion of Endotracheal Airway into Trachea, Via Natural or Artificial Opening (ICD-10-PCS; 2018-09-02)
PROC: 05HM33Z Insertion of Infusion Device into Right Internal Jugular Vein, Percutaneous Approach (ICD-10-PCS; 2018-09-02)
PROC: 3E0F7GC Introduction of Other Therapeutic Substance into Respiratory Tract, Via Natural or Artificial Opening (ICD-10-PCS; 2018-09-06)
DX: A41.9 Sepsis, unspecified organism (principal); I21.4 Non-ST elevation (NSTEMI) myocardial infarction; J96.91 Respiratory failure, unspecified with hypoxia; J18.9 Pneumonia, unspecified organism; R65.21 Severe sepsis with septic shock; J44.0 Chronic obstructive pulmonary disease with (acute) lower respiratory infection; C34.90 Malignant neoplasm of unspecified part of unspecified bronchus or lung; N17.9 Acute kidney failure, unspecified; Z99.11 Dependence on respirator [ventilator] status; R57.0 Cardiogenic shock; E87.6 Hypokalemia; D64.9 Anemia, unspecified; I50.9 Heart failure, unspecified; I11.0 Hypertensive heart disease with heart failure; E87.5 Hyperkalemia; Z66 Do not resuscitate; Z51.5 Encounter for palliative care; Z92.21 Personal history of antineoplastic chemotherapy; Z87.891 Personal history of nicotine dependence